=== PATIENT | male | born 1945 | race Asian ===

== ENCOUNTER → 2019-12-14 16:01 | Outpatient (CLI) | payer MEDICARE, BC, SELFPAY | PROVIDERS: PCP Student in an Organized Health Care Education/Training Program; Referring Provider Urology; Visit Provider Urology | DX: N40.1 Benign prostatic hyperplasia with lower urinary tract symptoms (principal) | CPT/HCPCS: 36415; 84153 ==

== ENCOUNTER → 2020-06-16 | Outpatient (CLI) | payer MEDICARE, BC, SELFPAY ==
[2020-06-16 16:18] LABS: Bacteria 0 SEEN /hpf (None Seen); Mucous, Urine 0 SEEN /hpf (<or=2+); Red Blood Cells-Urine 0 SEEN /hpf (0-5); White Blood Cells 0 SEEN /hpf (0-5)
[2020-06-16 16:44] LABS: Color, Urine Yellow (Yellow); Glucose, Dipstick Normal (Normal); Ketone-Dipstick Negative (Negative); Leukocyte Esterase-Dipstick Negative /ul (Negative); Nitrite-Dipstick Negative (Negative); Occult Blood-Urine 50 /ul (Negative); Protein-Dipstick 30 mg/dl (Negative); Specific Gravity, Urine 1.015 (1.002-1.030); Urine Bilirubin Dipstick Negative (Negative); Urine Clarity Clear (Clear); Urine Urobilinogen Normal (Normal)
[2020-06-16 17:00] LABS: Squamous Epithelial Cells - UA 0-5 SEEN /hpf (0-5)
== END | disposition home or self-care (01) ==
LOC: LABSPEC 16:11
PROVIDERS: PCP Student in an Organized Health Care Education/Training Program; Referring Provider Nurse Practitioner Adult Health; Visit Provider Nurse Practitioner Adult Health
DX: R31.21 Asymptomatic microscopic hematuria (principal)
CPT/HCPCS: 81001

== ENCOUNTER → 2020-12-22 11:05 | Outpatient (CLI) | payer MEDICARE, BC, SELFPAY ==
[2020-12-22 12:46] LABS: PSA,Total - Annual Screen 0.63 ng/mL (0.00-4.00)
[2020-12-22 16:21] LABS: Bacteria 0 SEEN /hpf (None Seen); Mucous, Urine 0 SEEN /hpf (<or=2+); Squamous Epithelial Cells - UA 0 SEEN /hpf (0-5); White Blood Cells 0 SEEN /hpf (0-5)
[2020-12-22 16:34] LABS: Color, Urine Yellow (Yellow); Glucose, Dipstick Normal (Normal); Ketone-Dipstick Negative (Negative); Leukocyte Esterase-Dipstick Negative /ul (Negative); Nitrite-Dipstick Negative (Negative); Occult Blood-Urine 50 /ul (Negative); Protein-Dipstick 30 mg/dl (Negative); Urine Bilirubin Dipstick Negative (Negative); Urine Clarity Clear (Clear); Urine Urobilinogen Normal (Normal)
[2020-12-22 17:09] LABS: Red Blood Cells-Urine 0-5 SEEN /hpf (0-5)
== END ==
PROVIDERS: PCP Student in an Organized Health Care Education/Training Program; Referring Provider Nurse Practitioner Adult Health; Visit Provider Nurse Practitioner Adult Health
DX: R31.21 Asymptomatic microscopic hematuria (principal); Z12.5 Encounter for screening for malignant neoplasm of prostate
CPT/HCPCS: 36415; 81001; 84153; G0103

== ENCOUNTER → 2021-06-22 | Outpatient (CLI) | payer MEDICARE, BC, SELFPAY ==
[2021-06-22 17:25] LABS: Bacteria 0 SEEN /hpf (None Seen); Mucous, Urine 0 SEEN /hpf (<or=2+); White Blood Cells 0 SEEN /hpf (0-5)
[2021-06-22 17:42] LABS: Color, Urine Yellow (Yellow); Glucose, Dipstick Normal (Normal); Ketone-Dipstick Negative (Negative); Leukocyte Esterase-Dipstick Negative /ul (Negative); Nitrite-Dipstick Negative (Negative); Occult Blood-Urine 150 /ul (Negative); Protein-Dipstick 30 mg/dl (Negative); Urine Bilirubin Dipstick Negative (Negative); Urine Clarity Clear (Clear); Urine Urobilinogen Normal (Normal)
[2021-06-22 18:33] LABS: Red Blood Cells-Urine 10-25 SEEN /hpf (0-5); Squamous Epithelial Cells - UA 0-5 SEEN /hpf (0-5)
== END | disposition home or self-care (01) ==
LOC: LABSPEC 17:10
PROVIDERS: PCP Student in an Organized Health Care Education/Training Program; Visit Provider Nurse Practitioner Adult Health
DX: R31.21 Asymptomatic microscopic hematuria (principal)
CPT/HCPCS: 81001

== ENCOUNTER → 2021-07-05 13:33 | Outpatient (CLI) | payer MEDICARE, BC, SELFPAY ==
--- NOTE | 2021-07-05 13:36 | CT_ITS ---
STUDY: CT ABDOMEN AND PELVIS WITH AND WITHOUT CONTRAST REASON FOR EXAM: Male, 75 years old. HEMATURIA RADIATION DOSAGE (If Supplied By Facility): CTDIvol = ( 19.93 ) mGy, DLP = ( 2457.74 ) mGycm TECHNIQUE: Transaxial images were obtained from the dome of the diaphragm to the symphysis pubis without oral contrast. IV 100mL Isovue-[id number] was administered. Sagittal and coronal images were reconstructed. Individualized dose optimization techniques were used for this CT. COMPARISON: None. FINDINGS: Lung bases clear. Mild diffuse hepatic steatosis. Unremarkable spleen, pancreas, and adrenals. No radiopaque stone in the bilateral kidneys and proximal ureters. 2 subcentimeter cysts in the left kidney measuring up to 0.9 cm. No definite mass in the bilateral kidneys and opacified parts of the ureters. No definite cholelithiasis. Normal appendix. Bowel loops nonobstructed. Distal colonic diverticulosis. No acute diverticulitis. No free air or free fluid. Vascular constipation with no abdominal aortic aneurysm. Sections through the pelvis demonstrate a markedly enlarged prostate gland protruding into the lumen of the urinary bladder. Tiny bladder diverticula noted. A small fat-containing left inguinal hernia. No lytic or sclerotic lesion in the regional skeleton. Multilevel thoracolumbar spondylosis. 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 CT/CT Abd/Pelvis W/WO Contrast IMPRESSION: Markedly enlarged prostate gland causing mass effect on the neck of the urinary bladder. Correlation with rectal examination and serum PSA levels is recommended. No radiopaque stone in the bilateral kidneys and proximal ureters. Mild diffuse hepatic steatosis. Electronically Signed: Terrence Montanez MD at 19:46 EDT Tel , Service support ,
[2021-07-05 14:16] LABS: CREATININE FINGERSTICK 1.1 mg/dL (0.70-1.30); EGFR FINGERSTICK > 60.0000 mL/min (>60)
== END ==
PROVIDERS: PCP Student in an Organized Health Care Education/Training Program; Visit Provider Nurse Practitioner Adult Health
DX: R31.21 Asymptomatic microscopic hematuria (principal)
CPT/HCPCS: 74178; Q9967

== ENCOUNTER 2021-12-18 15:59 | Outpatient (CLI) | payer MEDICARE, BC, SELFPAY ==
[2021-12-18 17:31] LABS: PSA,Total- Diagnostic 0.81 ng/mL (0.0-4.0)
== END 2021-12-18 23:59 | disposition home or self-care (01) ==
LOC: LAB 16:01
PROVIDERS: PCP Student in an Organized Health Care Education/Training Program; Visit Provider Urology
DX: R97.20 Elevated prostate specific antigen [PSA] (principal)
CPT/HCPCS: 36415; 84153

== ENCOUNTER → 2022-06-18 | Outpatient (CLI) | payer MEDICARE, BC, SELFPAY | END | disposition home or self-care (01) | LOC: LAB 07:00 | PROVIDERS: PCP Student in an Organized Health Care Education/Training Program; Referring Provider Registered Nurse; Visit Provider Registered Nurse | DX: Z12.5 Encounter for screening for malignant neoplasm of prostate (principal) | CPT/HCPCS: 36415; 84153; G0103 ==

== ENCOUNTER → 2023-06-17 | Outpatient (CLI) | payer MEDICARE, BC, SELFPAY ==
[2023-06-17 08:53] LABS: PSA,Total - Annual Screen 0.68 ng/mL (0.00-4.00)
== END | disposition home or self-care (01) ==
PROVIDERS: PCP Student in an Organized Health Care Education/Training Program; Referring Provider Registered Nurse; Visit Provider Registered Nurse
DX: Z12.5 Encounter for screening for malignant neoplasm of prostate (principal)
CPT/HCPCS: 36415; 84153; G0103

== ENCOUNTER → 2024-07-02 | Outpatient (CLI) | payer MEDICARE, BC, SELFPAY ==
[2024-07-02 18:23] LABS: PSA,Total - Annual Screen 0.66 ng/mL (0.00-4.00)
== END | disposition home or self-care (01) ==
LOC: LAB 16:22
PROVIDERS: PCP Student in an Organized Health Care Education/Training Program; Referring Provider Nurse Practitioner; Visit Provider Nurse Practitioner
DX: Z12.5 Encounter for screening for malignant neoplasm of prostate (principal)
CPT/HCPCS: 36415; 84153; G0103

== ENCOUNTER → 2025-07-05 | Outpatient (CLI) | payer MEDICARE, BC, SELFPAY ==
--- OUTSIDE RECORDS SUMMARY | 2025-07-05 06:48 | XMS RPT_ITS | CCD ---
Author Organization [facility] Care Team Providers Care Animal Breeder Name Role Phone SARIKA BELLA, DR KRISHNAMURTHY Primary Care Physician ([id number] ROMAR DO, DR KRISHNAMURTHY Attending Unavailable ROMAR DO, DR KRISHNAMURTHY Primary Care Unavailable ROMAR DO, DR KRISHNAMURTHY Primary Care Unavailable ROMAR DO, DR KRISHNAMURTHY Attending Unavailable ROMAR DO, DR KRISHNAMURTHY Primary Care Unavailable ROMAR DO, DR KRISHNAMURTHY Attending Unavailable ROMAR DO, DR KRISHNAMURTHY Primary Care Unavailable ROMAR DO, DR KRISHNAMURTHY Attending Unavailable ROMAR DO, DR KRISHNAMURTHY Primary Care Unavailable ROMAR DO, DR KRISHNAMURTHY Attending Unavailable ROMAR DO, DR KRISHNAMURTHY Primary Care Unavailable ROMAR DO, DR KRISHNAMURTHY Attending Unavailable ROMAR DO, DR KRISHNAMURTHY Primary Care Unavailable DHRUV BARNARD, DR PASTORA Godoy Attending Unavai lable ROMAR DO, DR KRISHNAMURTHY Primary Care Unavailable ROMAR DO, DR KRISHNAMURTHY Attending Unavailable ROMAR DO, DR KRISHNAMURTHY Attending Unavailable ROMAR DO, DR KRISHNAMURTHY Primary Care Unavailable ROMAREYSSY Primary Care Unavailable ROMARYESSY Attending Unavailable ROMAR, YESSY Attending Unavailable ROMAR, YESSY Primary Care Unavailable ROMAR, YESSY Attending Unavailable ROMAR, YESSY Primary Care Unavailable RomarYessy Primary Care Unavailable Bally, Amanda Referring Unavailable Bally, Amanda Attending Unavailable Bally, Amanda Attending Unavailable Yessy Santillan Primary Care Unavailable Bally, Amanda Referring Unavailable Medications Current Medications Medication Drug Class(es) Dates Sig (Normalized) Sig (Original) amLODIPine 5 mg oral tablet (17 sources) Dihydropyridine Calcium Channel Ritu Start: 08-21-2024 End: 03-09-2025 amLODIPine 5 mg oral tablet Dose : 5 mg = 1 tab(s), Oral, qDay, # 100 tab(s), 1 Refill(s) Start Date: 08/21/24 Stop Date: 03/09/25 Status: Ordered Quantity: 100.0 Unit: tab(s) Repeat number: 2 Start: 07-06-2022 End: 08-01-2024 amLODIPine 5 mg oral tablet Dose : 5 mg = 1 tab(s), Oral, qDay, # 100 tab(s), 1 Refill(s), Pharmacy: [facility], 172.3, cm, 01/14/24 16:22:00 EDT, Height, kg, 01/14/24 16:22:00 EDT, Dosing Weight Start Date: 01/14/24 Stop Date: 08/01/24 Status: Ordered Start: 05-15-2021 End: 02-09-2022 amLODIPine 5 mg oral tablet Dose : 5 mg = 1 tab(s), Oral, qDay, # 90 tab(s), 2 Refill(s), Pharmacy: [facility], 174, cm, 05/15/21 9:45:00 EDT, Height, kg, 05/15/21 9:45:00 EDT, Dosing Weight Start Date: 05/15/21 Stop Date: 02/09/22 Status: Ordered apixaban 5 mg oral tablet (17 sources) Factor Xa Inhibitor Start: 10-13-2024 Eliquis 5 mg oral tablet Dose : 5 mg = 1 tab(s), Oral, BID, # 180 tab(s), 0 Refill(s), Pharmacy: [facility], 173.5, cm, 09/10/24 15:44:00 EST, Height, 90.9, kg, 09/10/24 15:44:00 EST, Dosing Weight Start Date: 10/13/24 Status: Ordered Quantity: 180.0 Unit: tab(s) Repeat number: 1 Start: 10-15-2023 Eliquis 5 mg o ral tablet Dose : 5 mg = 1 tab(s), Oral, BID, # 180 tab(s), 3 Refill(s), Pharmacy: [facility], 174, cm, 09/24/23 15:33:00 EST, Height, 88.1, kg, 09/24/23 15:33:00 EST, Dosing Weight Start Date: 10/15/23 Status: Ordered Start: 10-17-2022 Eliquis 5 mg o ral tablet Dose : 5 mg = 1 tab(s), Oral, BID, # 60 tab(s), 11 Refill(s), Pharmacy: [facility], 172.7, cm, 10/11/22 11:16:00 EST, Height, 90.1, kg, 10/11/22 11:16:00 EST, Dosing Weight Start Date: 10/17/22 Status: Ordered Start: 04-11-2022 End: 10-08-2022 Eliquis 5 mg oral tablet Dos e : 5 mg = 1 tab(s), Oral, BID, # 60 tab(s), 5 Refill(s), Pharmacy: [facility], 172.7, cm, 01/05/22 14:58:00 EST, Height, 90.3, kg, 01/05/22 14:58:00 EST, Dosing Weight Start Date: 04/11/22 Stop Date: 10/08/22 Status: Ordered Start: 09-29-2021 Eliquis 5 mg o ral tablet Dose : 5 mg = 1 tab(s), Oral, BID, # 180 tab(s), 1 Refill(s), Pharmacy: [facility], 173, cm, 09/29/21 14:35:00 EST, Height, 90.2, kg, 09/29/21 14:35:00 EST, Dosing Weight Start Date: 09/29/21 Status: Ordered atorvastatin 40 mg oral tablet (17 sources) HMG-CoA Reductase Inhibitor Start: 08-21-2024 End: 03-09-2025 atorvastatin 40 mg oral tablet Dose : 40 mg = 1 tab(s), Oral, qDay, # 100 tab(s), 1 Refill(s) Start Date: 08/21/24 Stop Date: 03/09/25 Status: Ordered Quantity: 100.0 Unit: tab(s) Repeat number: 2 Start: 01-14-2024 End: 08-01-2024 atorvastatin 40 mg oral tabl et Dose : 40 mg = 1 tab(s), Oral, qDay, # 100 tab(s), 1 Refill(s), Pharmacy: [facility], 172.3, cm, 01/14/24 16:22:00 EDT, Height, kg, 01/14/24 16:22:00 EDT, Dosing Weight Start Date: 01/14/24 Stop Date: 08/01/24 Status: Ordered Start: 05-21-2023 atorvastatin 4 0 mg oral tablet Dose : 40 mg = 1 tab(s), Oral, qDay, # 90 tab(s), 1 Refill(s), Pharmacy: [facility], 172.5, cm, 05/21/23 16:17:00 EDT, Height, kg, 05/21/23 16:17:00 EDT, Dosing Weight Start Date: 05/21/23 Status: Ordered Start: 01-04-2023 atorvastatin 4 0 mg oral tablet Dose : 40 mg = 1 tab(s), Oral, qDay, # 90 tab(s), 1 Refill(s), Pharmacy: [facility], 172.7, cm, 01/04/23 14:39:00 EST, Height, kg, 01/04/23 14:39:00 EST, Dosing Weight Start Date: 01/04/23 Status: Ordered Start: 07-06-2022 atorvastatin 4 0 mg oral tablet Dose : 40 mg = 1 tab(s), Oral, qDay, # 90 tab(s), 1 Refill(s), Pharmacy: [facility], 172.7, cm, 07/06/22 14:54:00 EDT, Height, kg, 07/06/22 14:54:00 EDT, Dosing Weight Start Date: 07/06/22 Status: Ordered Start: 01-05-2022 atorvastatin 4 0 mg oral tablet Dose : 40 mg = 1 tab(s), Oral, qDay, # 90 tab(s), 1 Refill(s), Pharmacy: [facility], 172.7, cm, 01/05/22 14:58:00 EST, Height, kg, 01/05/22 14:58:00 EST, Dosing Weight Start Date: 01/05/22 Status: Ordered Start: 11-03-2021 atorvastatin 4 0 mg oral tablet Dose : 40 mg = 1 tab(s), Oral, qDay, # 90 tab(s), 0 Refill(s), Pharmacy: [facility], 172.7, cm, 10/03/21 11:04:00 EST, Height, kg, 10/03/21 11:04:00 EST, Dosing Weight Start Date: 11/03/21 Status: Ordered clindamycin 150 mg oral capsule (1 source) Lincosamide Antibacterial Start: 05-21-2023 End: 05-31-2023 clindamycin 150 mg oral capsule Dose : 450 mg = 3 cap(s), Oral, q8h, X 10 day(s), # 90 cap(s), 0 Refill(s), 05/31/23 5:06:00 PM EDT, Pharmacy: [facility], 172.5, cm, 05/21/23 16:17:00 EDT, Height, 88.8, kg, 05/21/23 16:17:00 EDT, Dosing Weight Start Date: 05/21/23 Stop Date: 05/31/23 Status: Ordered DME MISCellaneous (1 source) Start: 05-21-2023 DME MISCellane ous See Instructions, Bilateral knee high compression hose medium 20-30, Dx: R60.9, # 1 EA, 0 Refill(s), Peripheral edema, 88.8 Start Date: 05/21/23 Status: Ordered losartan potassium 50 mg oral tablet (17 sources) Angiotensin 2 Receptor Ritu Start: 08-21-2024 End: 03-09-2025 losartan 50 mg oral tablet Dose : 50 mg = 1 tab(s), Oral, qDay, # 100 tab(s), 1 Refill(s) Start Date: 08/21/24 Stop Date: 03/09/25 Status: Ordered Quantity: 100.0 Unit: tab(s) Repeat number: 2 Start: 08-15-2023 End: 08-01-2024 losartan 50 mg oral tablet D ose : 50 mg = 1 tab(s), Oral, qDay, # 100 tab(s), 1 Refill(s), Pharmacy: [facility], 172.3, cm, 01/14/24 16:22:00 EDT, Height, kg, 01/14/24 16:22:00 EDT, Dosing Weight Start Date: 01/14/24 Stop Date: 08/01/24 Status: Ordered Start: 05-21-2023 losartan 50 mg oral tablet Dose : 50 mg = 1 tab(s), Oral, qDay, # 90 tab(s), 1 Refill(s), Pharmacy: [facility], 172.5, cm, 05/21/23 16:17:00 EDT, Height, kg, 05/21/23 16:17:00 EDT, Dosing Weight Start Date: 05/21/23 Status: Ordered Start: 01-04-2023 losartan 50 mg oral tablet Dose : 50 mg = 1 tab(s), Oral, qDay, # 90 tab(s), 1 Refill(s), Pharmacy: [facility], 172.7, cm, 01/04/23 14:39:00 EST, Height, kg, 01/04/23 14:39:00 EST, Dosing Weight Start Date: 01/04/23 Status: Ordered Start: 08-10-2022 losartan 50 mg oral tablet Dose : 50 mg = 1 tab(s), Oral, qDay, # 90 tab(s), 1 Refill(s), Pharmacy: [facility], 172, cm, 07/30/22 13:51:00 EDT, Height, kg, 07/30/22 13:51:00 EDT, Dosing Weight Start Date: 08/10/22 Status: Ordered Start: 07-06-2022 losartan 50 mg oral tablet Dose : 50 mg = 1 tab(s), Oral, qDay, # 90 tab(s), 1 Refill(s), Pharmacy: [facility], 172.7, cm, 07/06/22 14:54:00 EDT, Height, kg, 07/06/22 14:54:00 EDT, Dosing Weight Start Date: 07/06/22 Status: Ordered Start: 01-05-2022 losartan 50 mg oral tablet Dose : 50 mg = 1 tab(s), Oral, qDay, # 90 tab(s), 1 Refill(s), Pharmacy: [facility], 172.7, cm, 01/05/22 14:58:00 EST, Height, kg, 01/05/22 14:58:00 EST, Dosing Weight Start Date: 01/05/22 Status: Ordered Start: 11-03-2021 losartan 50 mg oral tablet Dose : 50 mg = 1 tab(s), Oral, qDay, # 90 tab(s), 0 Refill(s), Pharmacy: [facility], 172.7, cm, 10/03/21 11:04:00 EST, Height, kg, 10/03/21 11:04:00 EST, Dosing Weight Start Date: 11/03/21 Status: Ordered metFORMIN hydrochloride 500 mg oral tablet (17 sources) Biguanide Start: 08-21-2024 End: 06-27-2025 MetFORMIN (Eqv-Glucophage XR) 500 mg oral tablet, EXTENDED RELEASE Dose : 500 mg = 1 tab(s), Oral, BID, with evening meal. Okay to subtitute glucophage 500 mg extended release if covered by insurance, # 200 tab(s), 1 Refill(s), Pharmacy: [facility], 173.5, cm, 12/09/24 15:59:00 EST, Height, kg, 12/09/24 15:59:00 EST, Dosing Weight Start Date: 12/09/24 Stop Date: 06/27/25 Status: Ordered Quantity: 200.0 Unit: tab(s) Repeat number: 2 Start: 01-04-2023 End: 08-01-2024 MetFORMIN (Eqv-Glucophage XR ) 500 mg oral tablet, EXTENDED RELEASE Dose : 500 mg = 1 tab(s), Oral, BID, with evening meal. Okay to subtitute glucophage 500 mg extended release if covered by insurance, # 200 tab(s), 1 Refill(s), Pharmacy: [facility], 172.3, cm, 01/14/24 16:22:00 EDT, Height, kg, 01/14/24 16:22:00 EDT, Dosing Weight Start Date: 01/14/24 Stop Date: 08/01/24 Status: Ordered Start: 07-06-2022 End: 01-02-2023 MetFORMIN (Eqv-Glucophage XR ) 500 mg oral tablet, EXTENDED RELEASE Dose : 500 mg = 1 tab(s), Oral, BID, with evening meal. Okay to subtitute glucophage 500 mg extended release if covered by insurance, # 180 tab(s), 1 Refill(s), Pharmacy: [facility], 172.7, cm, 07/06/22 14:54:00 EDT, Height, kg, ... Start Date: 07/06/22 Stop Date: 01/02/23 Status: Ordered Start: 09-29-2021 End: 03-28-2022 MetFORMIN (Eqv-Glucophage XR ) 500 mg oral tablet, EXTENDED RELEASE Dose : 500 mg = 1 tab(s), Oral, BID, with evening meal. Okay to subtitute glucophage 500 mg extended release if covered by insurance, # 180 tab(s), 1 Refill(s), Pharmacy: [facility], 173, cm, 09/29/21 14:35:00 EST, Height, kg, 09/29/21... Start Date: 09/29/21 Stop Date: 03/28/22 Status: Ordered metoprolol tartrate 25 mg oral tablet (17 sources) beta-Adrenergic Ritu Start: 08-21-2024 End: 03-09-2025 Metoprolol Succinate ER 25 mg oral TABLET extended release Dose : 25 mg = 1 tab(s), Oral, qDay, do not crush or chew, # 100 tab(s), 1 Refill(s) Start Date: 08/21/24 Stop Date: 03/09/25 Status: Ordered Quantity: 100.0 Unit: tab(s) Repeat number: 2 Start: 10-11-2022 End: 08-01-2024 Metoprolol Succinate ER 25 m g oral TABLET extended release Dose : 25 mg = 1 tab(s), Oral, qDay, do not crush or chew, # 100 tab(s), 1 Refill(s), Pharmacy: [facility], 172.3, cm, 01/14/24 16:22:00 EDT, Height, kg, 01/14/24 16:22:00 EDT, Dosing Weight Start Date: 01/14/24 Stop Date: 08/01/24 Status: Ordered Start: 10-03-2021 End: 09-28-2022 Metoprolol Succinate ER 25 m g oral TABLET extended release Dose : 12.5 mg = 0.5 tab(s), Oral, qDay, # 45 tab(s), 3 Refill(s), Pharmacy: [facility], 172.7, cm, 10/03/21 11:04:00 EST, Height, kg, 10/03/21 11:04:00 EST, Dosing Weight Start Date: 10/03/21 Stop Date: 09/28/22 Status: Ordered nitroglycerin 0.4 mg sublingual tablet (2 sources) Start: 11-24-2019 nitroglycerin 0.4 mg sublingual tablet DISSOLVE 1 TABLET UNDER THE TONGUE NEEDED FOR CHEST PAIN- MAY REPEAT EVERY 5 MINUTES IF NEEDED ( MAX 3 DOSES.- IF NO RELIEF CALL 911) Start Date: 11/24/19 Status: Ordered sulfamethoxazole 800 mg / trimethoprim 160 mg oral tablet (1 source) Dihydrofolate Reductase Inhibitor Antibacterial, Sulfonamide Antimicrobial Start: 05-07-2023 End: 05-21-2023 take 1 tablet by mouth every twelve hours sulfamethoxazole-t rimethoprim 800 mg-160 mg oral tablet Dose = 1 tab(s), Oral, q12h, drink plenty of fluids, X 14 day(s), # 28 tab(s), 0 Refill(s), Pharmacy: [facility], 172.7, cm, 05/07/23 16:20:00 EDT, Height, 89.8 Start Date: 05/07/23 Stop Date: 05/21/23 Status: Ordered Completed/Discontinued Medications Medication Drug Class(es) Dates Sig (Normalized) Sig (Original) ferrous sulfate 325 mg oral tablet (6 sources) Start: 04-14-2024 End: 07-13-2024 ferrous sulfate 325 mg (65 mg elemental iron) oral tablet Dose : 325 mg = 1 tab(s), Oral, qDay, may take with food to minimize abdominal discomfort, # 90 tab(s), 0 Refill(s), Pharmacy: [facility], 173.5, cm, 04/14/24 16:14:00 EDT, Height, kg, 04/14/24 16:14:00 EDT, Dosing Weight Start Date: 04/14/24 Stop Date: 9/16/24 Status: Ordered Start: 07-15-2023 End: 12-24-2023 ferrous sulfate 325 mg (65 m g elemental iron) oral tablet Dose : 325 mg = 1 tab(s), Oral, qDay, may take with food to minimize abdominal discomfort, # 90 tab(s), 0 Refill(s), Pharmacy: [facility], 174, cm, 09/24/23 15:33:00 EST, Height, kg, 09/24/23 15:33:00 EST, Dosing Weight Start Date: 09/25/23 Stop Date: 12/24/23 Status: Ordered finasteride 5 mg oral tablet (17 sources) 5-alpha Reductase Inhibitor Start: 07-06-2022 End: 01-02-2023 finasteride 5 mg oral tablet Dose : 5 mg = 1 tab(s), Oral, qDay, # 90 tab(s), 1 Refill(s), Pharmacy: [facility], 172.7, cm, 07/06/22 14:54:00 EDT, Height, kg, 07/06/22 14:54:00 EDT, Dosing Weight Start Date: 07/06/22 Stop Date: 01/02/23 Status: Ordered Quantity: 90.0 Unit: tab(s) Repeat number: 2 Start: 09-13-2021 End: 03-12-2022 finasteride 5 mg oral tablet Dose : 5 mg = 1 tab(s), Oral, qDay, # 90 tab(s), 1 Refill(s), Pharmacy: [facility], 173, cm, 06/29/21 14:46:00 EDT, Height, kg, 06/29/21 14:46:00 EDT, Dosing Weight Start Date: 09/13/21 Stop Date: 03/12/22 Status: Ordered nitroglycerin 0.4 mg sublingual tablet (15 sources) Nitrate Vasodilator Start: 06-18-2023 End: 10-16-2023 nitroglycerin 0.4 mg sublingual tablet 0.4 mg Dose = 1 tab(s), Sublingual, q5min, PRN as needed for chest pain, DISSOLVE 1 TABLET UNDER THE TONGUE NEEDED FOR CHEST PAIN- MAY REPEAT EVERY 5 MINUTES IF NEEDED ( MAX 3 DOSES.- IF USED CALL 911), # 30 tab(s), 3 Refill(s), Pharmacy: [facility], 172.5, cm, 06/18/23 16:54:00 EDT, Height, kg, 06/18/23 16:54:00 EDT, Dosing Weight Start Date: 06/18/23 Stop Date: 10/16/23 Status: Ordered Quantity: 30.0 Unit: tab(s) Repeat number: 4 Start: 01-10-2022 nitroglycerin 0.4 mg sublingual tablet 0.4 mg Dose = 1 tab(s), Sublingual, q5min, DISSOLVE 1 TABLET UNDER THE TONGUE NEEDED FOR CHEST PAIN- MAY REPEAT EVERY 5 MINUTES IF NEEDED ( MAX 3 DOSES.- IF NO RELIEF CALL 911), # 25 tab(s), 3 Refill(s), Pharmacy: [facility], 172.7, cm, 01/05/22 14:58:00 EST, Height, kg, 01/05/22 14:58:00 EST, Dosing Weight Start Date: 01/10/22 Status: Ordered tamsulosin hydrochloride 0.4 mg oral capsule (17 sources) alpha-Adrenergic Ritu Start: 07-06-2022 End: 01-02-2023 tamsulosin 0.4 mg oral capsule Dose : 0.4 mg = 1 cap(s), Oral, BID, per Urology, # 180 cap(s), 1 Refill(s), Pharmacy: [facility], 172.7, cm, 07/06/22 14:54:00 EDT, Height, kg, 07/06/22 14:54:00 EDT, Dosing Weight Start Date: 07/06/22 Stop Date: 01/02/23 Status: Ordered Quantity: 180.0 Unit: cap(s) Repeat number: 2 Start: 02-28-2021 End: 08-27-2021 tamsulosin 0.4 mg oral capsu le Dose : 0.4 mg = 1 cap(s), Oral, qDay, # 90 cap(s), 1 Refill(s), Pharmacy: [facility], 170, cm, 01/06/21 13:49:00 EST, Height, kg, 01/06/21 13:49:00 EST, Dosing Weight Start Date: 02/28/21 Stop Date: 08/27/21 Status: Ordered Problems Active Problems Problem Classification Problem Date Documented Date Episodic/Chronic Abdominal hernia (17 sources) Left inguinal hernia 09-13-2021 Episodic Comment on above: Fat-containing small on CT abdomen pelvis 07/18 [place] Cardiac dysrhythmias (17 sources) Ventricular premature beats 05-27-2020 Chronic Cardiac dysrhythmias (17 sources) Palpitations 12-09-2019 Episodic Comment on above: 09/08/2018: 24-hour Holter: Sinus rhythm (HR 65-135 bpm with average 88) 10% PVC burden mostly in isolation. Rare PACs noted. 10/23/2018: TTE: LVEF 60-65%. Moderately calcified aortic valve with mild stenosis and mild regurgitation. Deficiency and other anemia (8 sources) Anemia 05-28-2023 Episodic Deficiency and other anemia (8 sources) Iron deficiency anemia 07-15-2023 Episodic Deficiency and other anemia (8 sources) Microcytic anemia 06-18-2023 Episodic Diabetes mellitus with complications (1 source) Renal disorder due to type 2 diabetes mellitus; Translations: [Type 2 diabetes mellitus with other diabetic kidney complication] Onset: 01-07-2023 Chronic Diabetes mellitus without complication (20 sources) Type 2 diabetes mellitus; Translations: [Diabetes mellitus] Onset: 12-09-2024 09-29-2021 Chronic Diabetes mellitus without complication (11 sources) Hyperglycemia 11-24-2019 Episodic Disorders of lipid metabolism (20 sources) Dyslipidemia; Translations: [Hyperlipidemia] 05-16-2020 Chronic Comment on above: 06/23/2018: Total cho lesterol 154, triglycerides 156, HDL 50 and LDL 73; AST 21 and ALT 35 01/16 ascvd risk 44% on statin Diverticulosis and diverticulitis (20 sources) Diverticular disease; Translations: [Diverticulosis of colon] 09-29-2021 Chronic Comment on above: on CT abdomen pelvis 07/18 [place] Esophageal disorders (17 sources) Gastroesophageal reflux disease 05-16-2020 Chronic Essential hypertension (19 sources) Benign hypertension; Translations: [Hypertensive disorder] Onset: 12-09-2024 11-16-2020 Chronic Fluid and electrolyte disorders (6 sources) Hyperkalemia 01-17-2024 Episodic Genitourinary symptoms and ill-defined conditions (20 sources) Microalbuminuria; Translations: [Proteinuria] 01-09-2021 Episodic Heart valve disorders (17 sources) Aortic valve stenosis 05-27-2020 Chronic Comment on above: 10/23/2018: TTE: LVE F 60-65%. Moderately calcified aortic valve with mild stenosis and mild regurgitation. Hyperplasia of prostate (17 sources) Benign prostatic hypertrophy with outflow obstruction 05-16-2020 Chronic Neoplasms of unspecified nature or uncertain behavior (8 sources) Thrombocytosis 07-15-2023 Chronic Nonspecific chest pain (17 sources) Chest pain 05-27-2020 Episodic Comment on above: EKG done on 09/08/20 18 at PCP's office was independently reviewed and showed sinus tachycardia with heart rate 103 beats a minute. Ventricular couplet noted. Possible left atrial enlargement. LVH with repolarization abnormalities. Other and unspecified benign neoplasm (17 sources) Melanocytic nevus 07-11-2021 Episodic Other circulatory disease (2 sources) Elevated blood pressure 02-26-2020 Episodic Other circulatory disease (15 sources) Easy bruising 03-30-2022 Episodic Other connective tissue disease (10 sources) Swelling of right lower limb 05-07-2023 Episodic Other injuries and conditions due to external causes (8 sources) Foreign body of foot 05-28-2023 Episodic Other liver diseases (20 sources) Steatosis of liver 09-13-2021 Chronic Comment on above: Mild on CT abdomen p cornelio 07/18 [place] Other liver diseases (4 sources) Elevated liver enzymes level 04-14-2024 Episodic Other screening for suspected conditions (not mental disorders or infectious disease) (19 sources) EKG: atrial flutter; Translations: [Encounter for screening for malignant neoplasm of prostate] Onset: 07-22-2024 05-16-2020 Episodic Comment on above: s/p DCCV 150 J x 1 o n 12/31/2019 Other upper respiratory disease (17 sources) Chronic rhinitis 06-18-2019 Chronic Residual codes; unclassified (9 sources) Peripheral edema 05-21-2023 Episodic Skin and subcutaneous tissue infections (3 sources) Cellulitis of lower limb 05-21-2023 Episodic Unclassified (17 sources) Asymptomatic microscopic hematuria 11-22-2020 Comment on above: Follows with urology Unclassified (9 sources) Hematoma of right lower leg 05-21-2023 Unclassified (3 sources) For resuscitation 09-10-2024 Past or Other Problems Problem Classification Problem Date Documented Da te Episodic/Chronic Deficiency and other anemia (2 sources) Iron deficiency anemia, unspecified; Translations: [Iron deficiency anemia, unspecified] Onset: 08-22-2023 Episodic Immunizations and screening for infectious disease (20 sources) Has influenza vaccination at hospital; Translations: [Pneumococcal vaccination given] Onset: 10-28-2018 12-04-2019 Episodic Comment on above: Current / 2019 Results Test Name Value Interpretation Reference Range Facility [facility] 01-10-2025 U Ratio Alb/Cre 195 mg/G High 0-30 [facility] Comment on above: Performed By: #### P BNP, LIPID, A1C, CBC, ADIFF, ANEU, BMP, FE, GFR #### [id number] [place] [address] 12-10-2024 U Creatinine 56.3 mg/dL Normal [facility] Comment on above: Performed By: #### P BNP, LIPID, A1C, CBC, ADIFF, ANEU, BMP, FE, GFR #### [address] [address] U Microalb 110.0 mg/L Normal [facility] Comment on above: Performed By: #### P BNP, LIPID, A1C, CBC, ADIFF, ANEU, BMP, FE, GFR #### [address] [address] LABORATORYOrdered By: Alexandra Ivy on 12-09-2024 Albumin DL <= 20 mg/L (U) [Mass/Vol] 110.0 mg/L Invalid Interpretation Code AO ADM SS Albumin/Creatinine DL <= 20 mg/L (U) [Mass ratio] 2 mcg/mg Normal 0 - 30 mcg/mg AO Chemistry S Creatinine (U) [Mass/Vol] 56.3 mg/dL Invalid Interpretation Code AO ADM SS .Auto Diffon 09-12-2024 Basophil, Absolute 0.1 10 3/mcL Normal 0.0-0.2 [facility] Comment on above: Performed By: #### P BNP, LIPID, A1C, CBC, ADIFF, ANEU, BMP, FE, GFR #### [address] [address] Basophils/100 WBC (Bld) 1.0 % Normal 0.0-2.5 [facility] Comment on above: Performed By: #### P BNP, LIPID, A1C, CBC, ADIFF, ANEU, BMP, FE, GFR #### [address] [address] Eosinophil, Absolute 0.5 10 3/mcL Normal 0.0-0.7 [facility] Comment on above: Performed By: #### P BNP, LIPID, A1C, CBC, ADIFF, ANEU, BMP, FE, GFR #### [address] [address] Eosinophils/100 WBC (Bld) 7.1 % High 0.0-7.0 [facility] Comment on above: Performed By: #### P BNP, LIPID, A1C, CBC, ADIFF, ANEU, BMP, FE, GFR #### [address] [address] Lymphocyte, Absolute 2.5 10 3/mcL Normal 0.9-4.3 [facility] Comment on above: Performed By: #### P BNP, LIPID, A1C, CBC, ADIFF, ANEU, BMP, FE, GFR #### [address] [address] Lymphocytes/100 WBC (Bld) 36.6 % Normal 20.0-40.0 [facility] Comment on above: Performed By: #### P BNP, LIPID, A1C, CBC, ADIFF, ANEU, BMP, FE, GFR #### [address] [address] Monocyte, Absolute 0.8 10 3/mcL Normal 0.1-1.4 [facility] Comment on above: Performed By: #### P BNP, LIPID, A1C, CBC, ADIFF, ANEU, BMP, FE, GFR #### [address] [address] Monocytes/100 WBC (Bld) 11.3 % Normal 2.0-13.0 [facility] Comment on above: Performed By: #### P BNP, LIPID, A1C, CBC, ADIFF, ANEU, BMP, FE, GFR #### [id number] [place], [place] [address] Neutrophils/100 WBC (Bld) 44.0 % Low 50.0-75.0 [facility] Comment on above: Performed By: #### P BNP, LIPID, A1C, CBC, ADIFF, ANEU, BMP, FE, GFR #### [id number] [place], [place] [address] .GFRon 09-12-2024 GFR 106 ml/min/1.73sqm [facility] Comment on above: Result Comment: GFR Population mean for , Non- Americans Ages 20-29 = 116 mL/min/1.73 sq.m. Ages 30-39 = 107 mL/min/1.73 sq.m. Ages 40-49 = 99 mL/min/1.73 sq.m. Ages 50-59 = 93 mL/min/1.73 sq.m. Ages 60-69 = 85 mL/min/1.73 sq.m. Ages 70+ = 75 mL/min/1.73 sq.m. Chronic Kidney Disease: Less than 60 mL/min/1.73 square meters End Stage Renal Disease: Less than 15 mL/min/1.73 square meters Performed By: #### P BNP, LIPID, A1C, CBC, ADIFF, ANEU, BMP, FE, GFR #### [address] [address] GFR Non- 88 ml/min/1.73sqm [facility] Comment on above: Result Comment: GFR Population mean for , Non- Americans Ages 20-29 = 116 mL/min/1.73 sq.m. Ages 30-39 = 107 mL/min/1.73 sq.m. Ages 40-49 = 99 mL/min/1.73 sq.m. Ages 50-59 = 93 mL/min/1.73 sq.m. Ages 60-69 = 85 mL/min/1.73 sq.m. Ages 70+ = 75 mL/min/1.73 sq.m. Chronic Kidney Disease: Less than 60 mL/min/1.73 square meters End Stage Renal Disease: Less than 15 mL/min/1.73 square meters Performed By: #### P BNP, LIPID, A1C, CBC, ADIFF, ANEU, BMP, FE, GFR #### [address] [address] .NEUABSon 09-12-2024 Neutrophil, Absolute 3.0 10 3/mcL Normal 2.3-8.1 [facility] Comment on above: Performed By: #### P BNP, LIPID, A1C, CBC, ADIFF, ANEU, BMP, FE, GFR #### [address] [address] A1Con 09-12-2024 Glucose [Mass/Vol] 169 mg/dL Normal [facility] Comment on above: Result Comment: Trini mated Average Glucose calculated by equation ((28.7xA1C)-46.7) Estimated average glucose (eAG) is a calculated value from Hemoglobin A1C and is credit resolution representative of the average blood glucose level in the last 2-3 month period. Normal range: less than 114 mg/dL Performed By: #### P BNP, LIPID, A1C, CBC, ADIFF, ANEU, BMP, FE, GFR #### [address] [address] HbA1c (Bld) [Mass fraction] 7.5 % High 4.3-6.4 [facility] Comment on above: Performed By: #### P BNP, LIPID, A1C, CBC, ADIFF, ANEU, BMP, FE, GFR #### [address] [address] BMPon 09-12-2024 BUN/Creatinine Ratio 16 ratio Normal 7-27 [facility] Comment on above: Performed By: #### P BNP, LIPID, A1C, CBC, ADIFF, ANEU, BMP, FE, GFR #### [address] [address] Calcium [Mass/Vol] 9.5 mg/dL Normal 8.4-10.2 [facility] Comment on above: Performed By: #### P BNP, LIPID, A1C, CBC, ADIFF, ANEU, BMP, FE, GFR #### [address] [address] Chloride [Moles/Vol] 104 mmol/L Normal 98-107 [facility] Comment on above: Performed By: #### P BNP, LIPID, A1C, CBC, ADIFF, ANEU, BMP, FE, GFR #### [address] [address] CO2 [Moles/Vol] 33 mmol/L High 23-31 [facility] Comment on above: Performed By: #### P BNP, LIPID, A1C, CBC, ADIFF, ANEU, BMP, FE, GFR #### [address] [address] Creatinine [Mass/Vol] 0.85 mg/dL Normal 0.70-1.[address] [facility] Comment on above: Result Comment: Test ing performed on Siemens Dimension EXL analyzer using a modified kinetic Wu technique. Performed By: #### P BNP, LIPID, A1C, CBC, ADIFF, ANEU, BMP, FE, GFR #### [address] [address] Electrolyte Balance 5.0 mEq/L Normal 4.0-15.0 [facility] Comment on above: Performed By: #### P BNP, LIPID, A1C, CBC, ADIFF, ANEU, BMP, FE, GFR #### [address] [address] Glucose [Mass/Vol] 139 mg/dL High 83-110 [facility] Comment on above: Performed By: #### P BNP, LIPID, A1C, CBC, ADIFF, ANEU, BMP, FE, GFR #### [address] [address] Potassium [Moles/Vol] 4.6 mmol/L Normal 3.5-5.[address] [facility] Comment on above: Performed By: #### P BNP, LIPID, A1C, CBC, ADIFF, ANEU, BMP, FE, GFR #### [address] [address] Sodium [Moles/Vol] 142 mmol/L Normal 136-145 [facility] Comment on above: Performed By: #### P BNP, LIPID, A1C, CBC, ADIFF, ANEU, BMP, FE, GFR #### [place] [address] Urea nitrogen [Mass/Vol] 14 mg/dL Normal 7-18 [facility] Comment on above: Performed By: #### P BNP, LIPID, A1C, CBC, ADIFF, ANEU, BMP, FE, GFR #### [place] [id number] CBCon 09-12-2024 Erythrocyte distribution width (RBC) [Ratio] 14.0 % Normal 11.5-15.5 [facility] Comment on above: Performed By: #### P BNP, LIPID, A1C, CBC, ADIFF, ANEU, BMP, FE, GFR #### [place] [address] Hematocrit (Bld) [Volume fraction] 39.9 % Low 40.0-52.0 [facility] Comment on above: Performed By: #### P BNP, LIPID, A1C, CBC, ADIFF, ANEU, BMP, FE, GFR #### [place] [address] Hgb 13.2 G/dL Normal 13.0-17.5 [facility] Comment on above: Performed By: #### P BNP, LIPID, A1C, CBC, ADIFF, ANEU, BMP, FE, GFR #### [place] [address] MCH (RBC) [Entitic mass] 25.5 pg Low 27.0-33.0 [facility] Comment on above: Performed By: #### P BNP, LIPID, A1C, CBC, ADIFF, ANEU, BMP, FE, GFR #### [place] [address] MCHC 33.0 G/dL Normal 32.0-36.0 [facility] Comment on above: Performed By: #### P BNP, LIPID, A1C, CBC, ADIFF, ANEU, BMP, FE, GFR #### [address] [address] MCV (RBC) [Entitic vol] 77.2 fL Low 81.0-100.0 [facility] Comment on above: Performed By: #### P BNP, LIPID, A1C, CBC, ADIFF, ANEU, BMP, FE, GFR #### [address] [address] Platelet 211 10 3/mcL Normal 150-450 [facility] Comment on above: Performed By: #### P BNP, LIPID, A1C, CBC, ADIFF, ANEU, BMP, FE, GFR #### [address] [address] Platelet mean volume (Bld) [Entitic vol] 8.0 fL Normal 6.4-10.5 [facility] Comment on above: Performed By: #### P BNP, LIPID, A1C, CBC, ADIFF, ANEU, BMP, FE, GFR #### [address] [address] RBC 5.17 10 6/mcL Normal 4.50-6.00 [facility] Comment on above: Performed By: #### P BNP, LIPID, A1C, CBC, ADIFF, ANEU, BMP, FE, GFR #### [address] [address] WBC 6.7 10 3/mcL Normal 4.5-10.8 [facility] Comment on above: Performed By: #### P BNP, LIPID, A1C, CBC, ADIFF, ANEU, BMP, FE, GFR #### [address] [address] FEon 09-12-2024 Iron [Mass/Vol] 92 ug/dL Normal 65-175 [facility] Comment on above: Performed By: #### P BNP, LIPID, A1C, CBC, ADIFF, ANEU, BMP, FE, GFR #### [address] [address] LABORATORYOrdered By: SYSTEM SYSTEM on 09-12-2024 Basophils (Bld) [#/Vol] 0.1 103/mcL Normal 0.0 - 0.2 10^3/mcL AO Workflow SS Basophils/100 WBC (Bld) 1.0 % Normal 0.0 - 2.5 % AO Workflow SS Calcium [Mass/Vol] 9.5 mg/dL Normal 8.4 - 10. 2 mg/dL AO ADM SS Chloride [Moles/Vol] 104 mmol/L Normal 98 - 10 7 mmol/L AO ADM SS CO2 [Moles/Vol] 33 mmol/L High 23 - 31 mmol/L AO ADM SS Creatinine [Mass/Vol] 0.85 mg/dL Normal 0.70 - 1.30 mg/dL AO ADM SS Comment on above: Interpretive Data: T esting performed on Siemens Dimension EXL analyzer using a modified kinetic Wu technique. Electrolyte Balance 5.0 mEq/L Normal 4.0 - 15 .0 mEq/L AO ADM SS Eosinophil, Absolute 0.5 103/mcL Normal 0.0 - 0 .7 10^3/mcL AO Workflow SS Eosinophils/100 WBC (Bld) 7.1 % High 0.0 - 7.0 % AO Workflow SS Erythrocyte distribution width (RBC) [Ratio] 14.0 % Normal 11.5 - 15.5 % AO Workflow SS GFR/1.73 sq M.predicted among blacks MDRD (S/P/Bld) [Vol rate/Area] 106 ml/min/1.73sqm Invalid Interpretation Code AO Chemistry S Comment on above: Interpretive Data: GFR Population mean for , Non- Americans Ages 20-29 = 116 mL/min/1.73 sq.m. Ages 30-39 = 107 mL/min/1.73 sq.m. Ages 40-49 = 99 mL/min/1.73 sq.m. Ages 50-59 = 93 mL/min/1.73 sq.m. Ages 60-69 = 85 mL/min/1.73 sq.m. Ages 70+ = 75 mL/min/1.73 sq.m. Chronic Kidney Disease: Less than 60 mL/min/1.73 square meters End Stage Renal Disease: Less than 15 mL/min/1.73 square meters GFR/1.73 sq M.predicted among non-blacks MDRD (S/P/Bld) [Vol rate/Area] 88 ml/min/1.73sqm Invalid Interpretation Code AO Chemistry S Comment on above: Interpretive Data: GFR Population mean for , Non- Americans Ages 20-29 = 116 mL/min/1.73 sq.m. Ages 30-39 = 107 mL/min/1.73 sq.m. Ages 40-49 = 99 mL/min/1.73 sq.m. Ages 50-59 = 93 mL/min/1.73 sq.m. Ages 60-69 = 85 mL/min/1.73 sq.m. Ages 70+ = 75 mL/min/1.73 sq.m. Chronic Kidney Disease: Less than 60 mL/min/1.73 square meters End Stage Renal Disease: Less than 15 mL/min/1.73 square meters Glucose [Mass/Vol] 139 mg/dL High 83 - 110 mg/dL AO ADM SS Glucose [Mass/Vol] 169 mg/dL Invalid Interpretation Code AO Chemistry S Comment on above: Interpretive Data: E stimated average glucose (eAG) is a calculated value from Hemoglobin A1C and is credit resolution representative of the average blood glucose level in the last 2-3 month period. Normal range: less than 114 mg/dL HbA1c (Bld) [Mass fraction] 7.5 % High 4.3 - 6.4 % AO ADM SS Hematocrit (Bld) [Volume fraction] 39.9 % Low 40.0 - 52.0 % AO Workflow SS Hemoglobin (Bld) [Mass/Vol] 13.2 G/dL Normal 13.0 - 17.5 G/dL AO Workflow SS Iron [Mass/Vol] 92 ug/dL Normal 65 - 175 mcg/dL AO ADM SS Lymphocytes (Bld) [#/Vol] 2.5 103/mcL Normal 0.9 - 4.3 10^3/mcL AO Workflow SS Lymphocytes/100 WBC (Bld) 36.6 % Normal 20.0 - 40.0 % AO Workflow SS MCH (RBC) [Entitic mass] 25.5 pg Low 27.0 - 33.0 pg AO Workflow SS MCHC 33.0 G/dL Normal 32.0 - 36.0 G/dL AO Workflow SS MCV (RBC) [Entitic vol] 77.2 fL Low 81.0 - 100.0 fL AO Workflow SS Monocytes (Bld) [#/Vol] 0.8 103/mcL Normal 0.1 - 1.4 10^3/mcL AO Workflow SS Monocytes/100 WBC (Bld) 11.3 % Normal 2.0 - 13.0 % AO Workflow SS Natriuretic peptide.B prohormone N-Terminal [Mass/Vol] 131 pg/mL Normal 0 - 450 pg/mL AO ADM SS Comment on above: Interpretive Data: N T-proBNP results of less than 300 pg/mL effectively rules out acute congestive heart failure with 99% negative predictive value. Neutrophils (Bld) [#/Vol] 3.0 103/mcL Normal 2.3 - 8.1 10^3/mcL AO Workflow SS Neutrophils/100 WBC (Bld) 44.0 % Low 50.0 - 75.0 % AO Workflow SS Platelet mean volume (Bld) [Entitic vol] 8.0 fL Normal 6.4 - 10.5 fL AO Workflow SS Platelets (Bld) [#/Vol] 211 103/mcL Normal 150 - 450 10^3/mcL AO Workflow SS Potassium [Moles/Vol] 4.6 mmol/L Normal 3.5 - 5.1 mmol/L AO ADM SS RBC (Bld) [#/Vol] 5.17 106/mcL Normal 4.50 - 6.0 0 10^6/mcL AO Workflow SS Sodium [Moles/Vol] 142 mmol/L Normal 136 - 145 mmol/L AO ADM SS Urea nitrogen [Mass/Vol] 14 mg/dL Normal 7 - 18 mg/dL AO ADM SS Urea nitrogen/Creatinine [Mass ratio] 16 ratio Normal 7 - 27 ratio AO ADM SS WBC (Bld) [#/Vol] 6.7 103/mcL Normal 4.5 - 10.8 10^3/mcL AO Workflow SS LABORATORYOrdered By: Nereyda Quinonez on 09-12-2024 Cholesterol [Mass/Vol] 132 mg/dL Normal 0 - 200 mg/dL AO ADM SS Comment on above: Interpretive Data: C holesterol Reference Interval: Less than 200 Desirable 200-239 Borderline high risk 240 and above High risk Cholesterol in HDL [Mass/Vol] 50 mg/dL Normal 40 - 60 mg/dL AO ADM SS Cholesterol in LDL [Mass/Vol] 58 mg/dL Normal 0 - 130 mg/dL AO ADM SS Triglyceride [Mass/Vol] 118 mg/dL Normal 0 - 150 mg/dL AO ADM SS Comment on above: Interpretive Data: T riglyceride Reference Interval: Less than 150 Normal 150-199 Borderline high risk 200-499 High risk 500 or higher Very high risk LIPIDon 09-12-2024 Cholesterol [Mass/Vol] 132 mg/dL Normal 0-200 [facility] Comment on above: Result Comment: Chol esterol Reference Interval: Less than 200 Desirable 200-239 Borderline high risk 240 and above High risk Performed By: #### P BNP, LIPID, A1C, CBC, ADIFF, ANEU, BMP, FE, GFR #### [address] [address] Cholesterol in HDL [Mass/Vol] 50 mg/dL Normal 40-60 [facility] Comment on above: Performed By: #### P BNP, LIPID, A1C, CBC, ADIFF, ANEU, BMP, FE, GFR #### [address] [address] Cholesterol in LDL [Mass/Vol] 58 mg/dL Normal 0-130 [facility] Comment on above: Performed By: #### P BNP, LIPID, A1C, CBC, ADIFF, ANEU, BMP, FE, GFR #### [address] [address] Triglyceride [Mass/Vol] 118 mg/dL Normal 0-150 [facility] Comment on above: Result Comment: Trig lyceride Reference Interval: Less than 150 Normal 150-199 Borderline high risk 200-499 High risk 500 or higher Very high risk Performed By: #### P BNP, LIPID, A1C, CBC, ADIFF, ANEU, BMP, FE, GFR #### [address] [address] PBNPon 09-12-2024 Natriuretic peptide B (Bld) [Mass/Vol] 131 pg/mL Normal 0-450 [facility] Comment on above: Result Comment: NT-p roBNP results of less than 300 pg/mL effectively rules out acute congestive heart failure with 99% negative predictive value. Performed By: #### P BNP, LIPID, A1C, CBC, ADIFF, ANEU, BMP, FE, GFR #### [address] [address] MALBRon 09-11-2024 U Creatinine 105.2 mg/dL Normal 39.0-259.0 [facility] Comment on above: Performed By: #### M ALBR #### [facility] [address], [place] [address] U Microalb [address] mcg/dL Normal [facility] Comment on above: Performed By: #### M ALBR #### [facility] [address], [place] [address] U Ratio Alb/Cre 410 mcg/mg High 0-30 [facility] Comment on above: Performed By: #### M ALBR #### [facility] [address], [place] [address] LABORATORYOrdered By: Sherie Bang on 09-10-2024 Albumin DL <= 20 mg/L (U) [Mass/Vol] [address] mcg/dL Invalid Interpretation Code AO ADM SS Albumin/Creatinine DL <= 20 mg/L (U) [Mass ratio] 410 mcg/mg High 0 - 30 mcg/mg AO ADM SS Creatinine (U) [Mass/Vol] 105.2 mg/dL Normal 39.0 - 259.0 mg/dL AO ADM SS PSA,Total - Annual Screenon 07-02-2024 PSA,TOT SCREEN 0.66 ng/mL Normal 0.00-4.00 [facility] Comment on above: Result Comment: This test was performed using the TPSA assay method for the [employer] chemistry system. Values obtained with different assay methods cannot be used interchangably. When changing PSA assays in the course of monitoring a patient, additional sequential testing should be carried out to confirm baseline values. Performed By: #### L [phone] #### [facility] [address] [place], [place], [address] .GFRon 04-15-2024 GFR 119 ml/min/1.73sqm Normal [facility] ([place]) Comment on above: Result Comment: GFR Population mean for , Non- Americans Ages 20-29 = 116 mL/min/1.73 sq.m. Ages 30-39 = 107 mL/min/1.73 sq.m. Ages 40-49 = 99 mL/min/1.73 sq.m. Ages 50-59 = 93 mL/min/1.73 sq.m. Ages 60-69 = 85 mL/min/1.73 sq.m. Ages 70+ = 75 mL/min/1.73 sq.m. Chronic Kidney Disease: Less than 60 mL/min/1.73 square meters End Stage Renal Disease: Less than 15 mL/min/1.73 square meters Performed By: #### A DIFF, GFR, CBC, CMP, FE, ANEU #### [address] [address] GFR Non- 98 ml/min/1.73sqm Normal [facility] ([place]) Comment on above: Result Comment: GFR Population mean for , Non- Americans Ages 20-29 = 116 mL/min/1.73 sq.m. Ages 30-39 = 107 mL/min/1.73 sq.m. Ages 40-49 = 99 mL/min/1.73 sq.m. Ages 50-59 = 93 mL/min/1.73 sq.m. Ages 60-69 = 85 mL/min/1.73 sq.m. Ages 70+ = 75 mL/min/1.73 sq.m. Chronic Kidney Disease: Less than 60 mL/min/1.73 square meters End Stage Renal Disease: Less than 15 mL/min/1.73 square meters Performed By: #### A DIFF, GFR, CBC, CMP, FE, ANEU #### [address] [address] CMPon 04-15-2024 Albumin Level 3.5 G/dL Normal 3.4-4.8 [facility] ([place]) Comment on above: Performed By: #### A DIFF, GFR, CBC, CMP, FE, ANEU #### [address] [address] Albumin/Globulin [Mass ratio] 0.8 {ratio} Low 1.1-2.5 [facility] ([place]) Comment on above: Performed By: #### A DIFF, GFR, CBC, CMP, FE, ANEU #### [address] [address] ALP [Catalytic activity/Vol] 116 U/L Normal 40-135 [facility] ([place]) Comment on above: Performed By: #### A DIFF, GFR, CBC, CMP, FE, ANEU #### [address] [address] ALT [Catalytic activity/Vol] 53 U/L Normal 16-63 [facility] ([place]) Comment on above: Performed By: #### A DIFF, GFR, CBC, CMP, FE, ANEU #### [address] [address] AST [Catalytic activity/Vol] 25 U/L Normal 10-40 [facility] ([place]) Comment on above: Performed By: #### A DIFF, GFR, CBC, CMP, FE, ANEU #### [address] [address] Bili Total 0.4 mg/dL Normal 0.2-1.0 [facility] ([place]) Comment on above: Result Comment: Use of this assay is not recommended for patients undergoing treatment with eltrombopag due to the potential for falsely elevated results. Performed By: #### A DIFF, GFR, CBC, CMP, FE, ANEU #### [address] [address] BUN/Creatinine Ratio 29 ratio High 7-27 [facility] ([place]) Comment on above: Performed By: #### A DIFF, GFR, CBC, CMP, FE, ANEU #### [address] [address] Calcium [Mass/Vol] 9.0 mg/dL Normal 8.4-10.2 [facility] ([place]) Comment on above: Performed By: #### A DIFF, GFR, CBC, CMP, FE, ANEU #### [address] [address] Chloride [Moles/Vol] 106 mmol/L Normal 98-107 [facility] ([place]) Comment on above: Performed By: #### A DIFF, GFR, CBC, CMP, FE, ANEU #### [address] [address] CO2 [Moles/Vol] 29 mmol/L Normal 23-31 [facility] ([place]) Comment on above: Performed By: #### A DIFF, GFR, CBC, CMP, FE, ANEU #### [address] [address] Creatinine [Mass/Vol] 0.77 mg/dL Normal 0.70-1.30 [facility] ([place]) Comment on above: Performed By: #### A DIFF, GFR, CBC, CMP, FE, ANEU #### [address] [address] Electrolyte Balance 8.0 mEq/L Normal 4.0-15.0 [facility] ([place]) Comment on above: Performed By: #### A DIFF, GFR, CBC, CMP, FE, ANEU #### [address] [address] Globulin 4.4 G/dL Normal [facility] ([place]) Comment on above: Performed By: #### A DIFF, GFR, CBC, CMP, FE, ANEU #### [address] [address] Glucose [Mass/Vol] 132 mg/dL High 83-110 [facility] ([place]) Comment on above: Performed By: #### A DIFF, GFR, CBC, CMP, FE, ANEU #### [address] [address] Potassium [Moles/Vol] 4.4 mmol/L Normal 3.5-5.1 [facility] ([place]) Comment on above: Performed By: #### A DIFF, GFR, CBC, CMP, FE, ANEU #### [address] [address] Sodium [Moles/Vol] 143 mmol/L Normal 136-145 [facility] ([place]) Comment on above: Performed By: #### A DIFF, GFR, CBC, CMP, FE, ANEU #### [address] [address] Total Protein 7.9 G/dL Normal 6.4-8.2 [facility] ([place]) Comment on above: Performed By: #### A DIFF, GFR, CBC, CMP, FE, ANEU #### [place] [address] Urea nitrogen [Mass/Vol] 22 mg/dL High 05-14 [facility] ([place]) Comment on above: Performed By: #### A DIFF, GFR, CBC, CMP, FE, ANEU #### [place] [address] HEPACon 04-15-2024 Hep A IgM Ab Non-Reactive Normal Non-Reactive [facility] ([place]) Comment on above: Performed By: #### A DIFF, GFR, CBC, CMP, FE, ANEU #### [place] [address] Hep A IgM Ab Int Normal [facility] ([place]) Comment on above: Result Comment: No s erological evidence of a current Hepatitis A infection. See Interp Performed By: #### A DIFF, GFR, CBC, CMP, FE, ANEU #### [place] [address] Hep B Core IgM Ab Non-Reactive Normal Non-Reactive [facility] ([place]) Comment on above: Performed By: #### A DIFF, GFR, CBC, CMP, FE, ANEU #### [place] [address] Hep B Core IgM Ab Int Normal [facility] ([place]) Comment on above: Result Comment: Samp les with a value < 0.80 Index are considered nonreactive (negative) for IgM antibodies to hepatitis B core antigen. See Interp Performed By: #### A DIFF, GFR, CBC, CMP, FE, ANEU #### [place] [address] Hep B Surf Ag Non-Reactive Normal Non-Reactive [facility] ([place]) Comment on above: Performed By: #### A DIFF, GFR, CBC, CMP, FE, ANEU #### [place] [address] Hep C Ab Non-Reactive Normal Non-Reactive [facility] ([place]) Comment on above: Performed By: #### A DIFF, GFR, CBC, CMP, FE, ANEU #### [facility] [address], [place] [address] Hep C Ab Int Normal [facility] ([place]) Comment on above: Result Comment: Nonr eactive: Samples with a value < 0.80 are considered nonreactive (negative) for antibodies to HCV. A negative test result does not exclude the possibility of exposure to or infection with HCV. HCV antibodies may be undetectable in some stages of the infection and in some clinical conditions. See Interp Performed By: #### A DIFF, GFR, CBC, CMP, FE, ANEU #### [facility] [address], [place] [address] LABORATORYOrdered By: SYSTEM SYSTEM on 04-15-2024 Albumin BCP dye [Mass/Vol] 3.5 G/dL Normal 3.4 - 4.8 G/dL AO ADM SS Albumin/Globulin [Mass ratio] 0.8 {ratio} Low 1.1 - 2.5 ratio AO ADM SS ALP [Catalytic activity/Vol] 116 U/L Normal 40 - 135 U/L AO ADM SS ALT With P-5'-P [Catalytic activity/Vol] 53 U/L Normal 16 - 63 U/L AO ADM SS AST With P-5'-P [Catalytic activity/Vol] 25 U/L Normal 10 - 40 U/L AO ADM SS Bilirubin [Mass/Vol] 0.4 mg/dL Normal 0.2 - 1 .0 mg/dL AO ADM SS Comment on above: Interpretive Data: U se of this assay is not recommended for patients undergoing treatment with eltrombopag due to the potential for falsely elevated results. Calcium [Mass/Vol] 9.0 mg/dL Normal 8.4 - 10. 2 mg/dL AO ADM SS Chloride [Moles/Vol] 106 mmol/L Normal 98 - 10 7 mmol/L AO ADM SS CO2 [Moles/Vol] 29 mmol/L Normal 23 - 31 mmol/L AO ADM SS Creatinine [Mass/Vol] 0.77 mg/dL Normal 0.70 - 1.30 mg/dL AO ADM SS Electrolyte Balance 8.0 mEq/L Normal 4.0 - 15 .0 mEq/L AO ADM SS GFR/1.73 sq M.predicted among blacks MDRD (S/P/Bld) [Vol rate/Area] 119 ml/min/1.73sqm Invalid Interpretation Code AO Chemistry S Comment on above: Interpretive Data: GFR Population mean for , Non- Americans Ages 20-29 = 116 mL/min/1.73 sq.m. Ages 30-39 = 107 mL/min/1.73 sq.m. Ages 40-49 = 99 mL/min/1.73 sq.m. Ages 50-59 = 93 mL/min/1.73 sq.m. Ages 60-69 = 85 mL/min/1.73 sq.m. Ages 70+ = 75 mL/min/1.73 sq.m. Chronic Kidney Disease: Less than 60 mL/min/1.73 square meters End Stage Renal Disease: Less than 15 mL/min/1.73 square meters GFR/1.73 sq M.predicted among non-blacks MDRD (S/P/Bld) [Vol rate/Area] 98 ml/min/1.73sqm Invalid Interpretation Code AO Chemistry S Comment on above: Interpretive Data: GFR Population mean for , Non- Americans Ages 20-29 = 116 mL/min/1.73 sq.m. Ages 30-39 = 107 mL/min/1.73 sq.m. Ages 40-49 = 99 mL/min/1.73 sq.m. Ages 50-59 = 93 mL/min/1.73 sq.m. Ages 60-69 = 85 mL/min/1.73 sq.m. Ages 70+ = 75 mL/min/1.73 sq.m. Chronic Kidney Disease: Less than 60 mL/min/1.73 square meters End Stage Renal Disease: Less than 15 mL/min/1.73 square meters Globulin 4.4 G/dL Invalid Interpretation Code AO ADM SS Glucose [Mass/Vol] 132 mg/dL High 83 - 110 mg/dL AO ADM SS Potassium [Moles/Vol] 4.4 mmol/L Normal 3.5 - 5.1 mmol/L AO ADM SS Protein [Mass/Vol] 7.9 G/dL Normal 6.4 - 8.2 G/dL AO ADM SS Sodium [Moles/Vol] 143 mmol/L Normal 136 - 145 mmol/L AO ADM SS Urea nitrogen [Mass/Vol] 22 mg/dL High 7 - 18 mg/dL AO ADM SS Urea nitrogen/Creatinine [Mass ratio] 29 ratio High 7 - 27 ratio AO ADM SS LABORATORYOrdered By: Viktoria Smith on 04-15-2024 HAV IgM IA Ql Non-Reactive (04/15/24 7:16 AM) Normal Non-Reactive AH ADM SS HAV IgM IA Ql No serological evidence of a current Hepatitis A infection. Invalid Interpretation Code Chemistry S HBV core IgM IA Ql Non-Reactive (04/15/24 7:16 AM) Normal Non-Reactive AH ADM SS HBV core IgM IA Ql Samples with a value < 0.80 Index are considered nonreactive (negative) for IgM antibodies to hepatitis B core antigen. Invalid Interpretation Code Chemistry S HBV surface Ag IA Ql Non-Reactive (04/15/24 7:16 AM) Normal Non-Reactive AH ADM SS HCV Ab IA Ql Non-Reactive (04/15/24 7:16 AM) Normal Non-Reactive AH ADM SS HCV Ab IA Ql Nonreactive: Samples with a value < 0.80 are considered nonreactive (negative) for antibodies to HCV.A negative test result does not exclude the possibility of exposure to or infection with HCV. HCV antibodies may be undetectable in some stages of the infection and in some clinical conditions. Invalid Interpretation Code Chemistry S .Auto Diffon 01-22-2024 Basophil, Absolute 0.1 10 3/mcL Normal 0.0-0.2 [facility] ([place]) Comment on above: Performed By: #### A DIFF, GFR, CBC, CMP, FE, ANEU #### [address] [address] Basophils/100 WBC (Bld) 1.1 % Normal 0.0-2.5 [facility] ([place]) Comment on above: Performed By: #### A DIFF, GFR, CBC, CMP, FE, ANEU #### [address] [address] Eosinophil, Absolute 0.8 10 3/mcL High 0.0-0.4 [facility] ([place] Comment on above: Performed By: #### A DIFF, GFR, CBC, CMP, FE, ANEU #### [address] [address] Eosinophils/100 WBC (Bld) 10.7 % High 0.0-7.0 [facility] ([place]) Comment on above: Performed By: #### A DIFF, GFR, CBC, CMP, FE, ANEU #### [address] [address] Lymphocyte, Absolute 2.7 10 3/mcL Normal 0.8-3.9 [facility] ([place] Comment on above: Performed By: #### A DIFF, GFR, CBC, CMP, FE, ANEU #### [address] [address] Lymphocytes/100 WBC (Bld) 35.6 % Normal 10.0-50.0 [facility] ([place]) Comment on above: Performed By: #### A DIFF, GFR, CBC, CMP, FE, ANEU #### [address] [address] Monocyte, Absolute 0.9 10 3/mcL Normal 0.2-1.0 [facility] ([place]) Comment on above: Performed By: #### A DIFF, GFR, CBC, CMP, FE, ANEU #### [address] [address] Monocytes/100 WBC (Bld) 11.6 % Normal 1.7-13.0 [facility] ([place]) Comment on above: Performed By: #### A DIFF, GFR, CBC, CMP, FE, ANEU #### [address] [address] Neutrophils/100 WBC (Bld) 41.0 % Normal 37.0-80.0 [facility] ([place]) Comment on above: Performed By: #### A DIFF, GFR, CBC, CMP, FE, ANEU #### [address] [address] .GFRon 01-22-2024 GFR 98 ml/min/1.73sqm Normal [facility] ([place]) Comment on above: Result Comment: GFR Population mean for , Non- Americans Ages 20-29 = 116 mL/min/1.73 sq.m. Ages 30-39 = 107 mL/min/1.73 sq.m. Ages 40-49 = 99 mL/min/1.73 sq.m. Ages 50-59 = 93 mL/min/1.73 sq.m. Ages 60-69 = 85 mL/min/1.73 sq.m. Ages 70+ = 75 mL/min/1.73 sq.m. Chronic Kidney Disease: Less than 60 mL/min/1.73 square meters End Stage Renal Disease: Less than 15 mL/min/1.73 square meters Performed By: #### A DIFF, GFR, CBC, CMP, FE, ANEU #### [address] [address] GFR Non- 81 ml/min/1.73sqm Normal [facility] ([place]) Comment on above: Result Comment: GFR Population mean for , Non- Americans Ages 20-29 = 116 mL/min/1.73 sq.m. Ages 30-39 = 107 mL/min/1.73 sq.m. Ages 40-49 = 99 mL/min/1.73 sq.m. Ages 50-59 = 93 mL/min/1.73 sq.m. Ages 60-69 = 85 mL/min/1.73 sq.m. Ages 70+ = 75 mL/min/1.73 sq.m. Chronic Kidney Disease: Less than 60 mL/min/1.73 square meters End Stage Renal Disease: Less than 15 mL/min/1.73 square meters Performed By: #### A DIFF, GFR, CBC, CMP, FE, ANEU #### [address] [address] .NEUABSon 01-22-2024 Neutrophil, Absolute 3.1 10 3/mcL Normal 2.9-6.2 [facility] Comment on above: Performed By: #### A DIFF, GFR, CBC, CMP, FE, ANEU #### [address] [address] CBCon 01-22-2024 Erythrocyte distribution width (RBC) [Ratio] 13.9 % Normal 11.5-14.5 [facility] ([place]) Comment on above: Performed By: #### A DIFF, GFR, CBC, CMP, FE, ANEU #### [address] [address] Hematocrit (Bld) [Volume fraction] 39.8 % Low 42.0-52.0 [facility] ([place]) Comment on above: Performed By: #### A DIFF, GFR, CBC, CMP, FE, ANEU #### [address] [address] Hgb 13.1 G/dL Low 14.0-18.0 [facility] ([place]) Comment on above: Performed By: #### A DIFF, GFR, CBC, CMP, FE, ANEU #### [address] [address] MCH (RBC) [Entitic mass] 25.3 pg Low 27.0-31.2 [facility] ([place]) Comment on above: Performed By: #### A DIFF, GFR, CBC, CMP, FE, ANEU #### [address] [address] MCHC 32.9 G/dL Normal 31.8-35.4 [facility] ([place]) Comment on above: Performed By: #### A DIFF, GFR, CBC, CMP, FE, ANEU #### [address] [address] MCV (RBC) [Entitic vol] 77.0 fL Low 80.0-94.0 [facility] ([place]) Comment on above: Performed By: #### A DIFF, GFR, CBC, CMP, FE, ANEU #### [address] [address] Platelet 172 10 3/mcL Normal 130-400 [facility] ([place]) Comment on above: Performed By: #### A DIFF, GFR, CBC, CMP, FE, ANEU #### [address] [address] Platelet mean volume (Bld) [Entitic vol] 8.3 fL Normal 7.4-10.4 [facility] ([place]) Comment on above: Performed By: #### A DIFF, GFR, CBC, CMP, FE, ANEU #### [address] [address] RBC 5.17 10 6/mcL Normal 4.04-6.13 [facility] ([place]) Comment on above: Performed By: #### A DIFF, GFR, CBC, CMP, FE, ANEU #### [address] [address] WBC 7.6 10 3/mcL Normal 4.6-10.8 [facility] ([place]) Comment on above: Performed By: #### A DIFF, GFR, CBC, CMP, FE, ANEU #### [address] [address] CMPon 01-22-2024 Albumin Level 3.5 G/dL Normal 3.4-4.8 [facility] ([place]) Comment on above: Performed By: #### A DIFF, GFR, CBC, CMP, FE, ANEU #### [address] [address] Albumin/Globulin [Mass ratio] 0.9 {ratio} Low 1.1-2.5 [facility] ([place]) Comment on above: Performed By: #### A DIFF, GFR, CBC, CMP, FE, ANEU #### [address] [address] ALP [Catalytic activity/Vol] 85 U/L Normal 40-135 [facility] ([place]) Comment on above: Performed By: #### A DIFF, GFR, CBC, CMP, FE, ANEU #### [address] [address] ALT [Catalytic activity/Vol] 64 U/L High 16-63 [facility] ([place]) Comment on above: Performed By: #### A DIFF, GFR, CBC, CMP, FE, ANEU #### [address] [address] AST [Catalytic activity/Vol] 32 U/L Normal 10-40 [facility] ([place]) Comment on above: Performed By: #### A DIFF, GFR, CBC, CMP, FE, ANEU #### [address] [address] Bili Total 0.5 mg/dL Normal 0.2-1.0 [facility] ([place]) Comment on above: Result Comment: Use of this assay is not recommended for patients undergoing treatment with eltrombopag due to the potential for falsely elevated results. Performed By: #### A DIFF, GFR, CBC, CMP, FE, ANEU #### [place] [id number] BUN/Creatinine Ratio 22 ratio Normal 7-27 [facility] ([place]) Comment on above: Performed By: #### A DIFF, GFR, CBC, CMP, FE, ANEU #### [address] [address] Calcium [Mass/Vol] 9.3 mg/dL Normal 8.4-10.2 [facility] ([place]) Comment on above: Performed By: #### A DIFF, GFR, CBC, CMP, FE, ANEU #### [place] [id number] Chloride [Moles/Vol] 106 mmol/L Normal 98-107 [facility] ([place]) Comment on above: Performed By: #### A DIFF, GFR, CBC, CMP, FE, ANEU #### [address] [address] CO2 [Moles/Vol] 30 mmol/L Normal 23-31 [facility] ([place]) Comment on above: Performed By: #### A DIFF, GFR, CBC, CMP, FE, ANEU #### [address] [address] Creatinine [Mass/Vol] 0.91 mg/dL Normal 0.70-1.30 [facility] ([place]) Comment on above: Performed By: #### A DIFF, GFR, CBC, CMP, FE, ANEU #### [address] [address] Electrolyte Balance 7.0 mEq/L Normal 4.0-15.0 [facility] ([place]) Comment on above: Performed By: #### A DIFF, GFR, CBC, CMP, FE, ANEU #### [address] [address] Globulin 4.1 G/dL Normal [facility] ([place]) Comment on above: Performed By: #### A DIFF, GFR, CBC, CMP, FE, ANEU #### [address] [address] Glucose [Mass/Vol] 152 mg/dL High 83-110 [facility] ([place]) Comment on above: Performed By: #### A DIFF, GFR, CBC, CMP, FE, ANEU #### [address] [address] Potassium [Moles/Vol] 5.6 mmol/L High 3.5-5.1 [facility] ([place]) Comment on above: Performed By: #### A DIFF, GFR, CBC, CMP, FE, ANEU #### [address] [address] Sodium [Moles/Vol] 143 mmol/L Normal 136-145 [facility] ([place]) Comment on above: Performed By: #### A DIFF, GFR, CBC, CMP, FE, ANEU #### [address] [address] Total Protein 7.6 G/dL Normal 6.4-8.2 [facility] ([place]) Comment on above: Performed By: #### A DIFF, GFR, CBC, CMP, FE, ANEU #### [address] [address] Urea nitrogen [Mass/Vol] 20 mg/dL High 7-18 [facility] ([place]) Comment on above: Performed By: #### A DIFF, GFR, CBC, CMP, FE, ANEU #### [address] [address] FEon 01-22-2024 Iron [Mass/Vol] 86 ug/dL Normal 65-175 [facility] ([place]) Comment on above: Performed By: #### A DIFF, GFR, CBC, CMP, FE, ANEU #### [address] [address] LABORATORYOrdered By: SYSTEM SYSTEM on 01-22-2024 Albumin BCP dye [Mass/Vol] 3.5 G/dL Normal 3.4 - 4.8 G/dL AO ADM SS Albumin/Globulin [Mass ratio] 0.9 {ratio} Low 1.1 - 2.5 ratio AO ADM SS ALP [Catalytic activity/Vol] 85 U/L Normal 40 - 135 U/L AO ADM SS ALT With P-5'-P [Catalytic activity/Vol] 64 U/L High 16 - 63 U/L AO ADM SS AST With P-5'-P [Catalytic activity/Vol] 32 U/L Normal 10 - 40 U/L AO ADM SS Basophil, Absolute 0.1 103/mcL Normal 0.0 - 0.2 10^3/mcL AO Workflow SS Basophils/100 WBC (Bld) 1.1 % Normal 0.0 - 2.5 % AO Workflow SS Bilirubin [Mass/Vol] 0.5 mg/dL Normal 0.2 - 1 .0 mg/dL AO ADM SS Comment on above: Interpretive Data: U se of this assay is not recommended for patients undergoing treatment with eltrombopag due to the potential for falsely elevated results. Calcium [Mass/Vol] 9.3 mg/dL Normal 8.4 - 10. 2 mg/dL AO ADM SS Chloride [Moles/Vol] 106 mmol/L Normal 98 - 10 7 mmol/L AO ADM SS CO2 [Moles/Vol] 30 mmol/L Normal 23 - 31 mmol/L AO ADM SS Creatinine [Mass/Vol] 0.91 mg/dL Normal 0.70 - 1.30 mg/dL AO ADM SS Electrolyte Balance 7.0 mEq/L Normal 4.0 - 15 .0 mEq/L AO ADM SS Eosinophil, Absolute 0.8 103/mcL High 0.0 - 0 .4 10^3/mcL AO Workflow SS Eosinophils/100 WBC (Bld) 10.7 % High 0.0 - 7.0 % AO Workflow SS Erythrocyte distribution width (RBC) [Ratio] 13.9 % Normal 11.5 - 14.5 % AO Workflow SS GFR/1.73 sq M.predicted among blacks MDRD (S/P/Bld) [Vol rate/Area] 98 ml/min/1.73sqm Invalid Interpretation Code AO Chemistry S Comment on above: Interpretive Data: GFR Population mean for , Non- Americans Ages 20-29 = 116 mL/min/1.73 sq.m. Ages 30-39 = 107 mL/min/1.73 sq.m. Ages 40-49 = 99 mL/min/1.73 sq.m. Ages 50-59 = 93 mL/min/1.73 sq.m. Ages 60-69 = 85 mL/min/1.73 sq.m. Ages 70+ = 75 mL/min/1.73 sq.m. Chronic Kidney Disease: Less than 60 mL/min/1.73 square meters End Stage Renal Disease: Less than 15 mL/min/1.73 square meters GFR/1.73 sq M.predicted among non-blacks MDRD (S/P/Bld) [Vol rate/Area] 81 ml/min/1.73sqm Invalid Interpretation Code AO Chemistry S Comment on above: Interpretive Data: GFR Population mean for , Non- Americans Ages 20-29 = 116 mL/min/1.73 sq.m. Ages 30-39 = 107 mL/min/1.73 sq.m. Ages 40-49 = 99 mL/min/1.73 sq.m. Ages 50-59 = 93 mL/min/1.73 sq.m. Ages 60-69 = 85 mL/min/1.73 sq.m. Ages 70+ = 75 mL/min/1.73 sq.m. Chronic Kidney Disease: Less than 60 mL/min/1.73 square meters End Stage Renal Disease: Less than 15 mL/min/1.73 square meters Globulin 4.1 G/dL Invalid Interpretation Code AO ADM SS Glucose [Mass/Vol] 152 mg/dL High 83 - 110 mg/dL AO ADM SS Hematocrit (Bld) [Volume fraction] 39.8 % Low 42.0 - 52.0 % AO Workflow SS Hemoglobin (Bld) [Mass/Vol] 13.1 G/dL Low 14.0 - 18.0 G/dL AO Workflow SS Iron [Mass/Vol] 86 ug/dL Normal 65 - 175 mcg/dL AO ADM SS Lymphocyte, Absolute 2.7 103/mcL Normal 0.8 - 3 .9 10^3/mcL AO Workflow SS Lymphocytes/100 WBC (Bld) 35.6 % Normal 10.0 - 50.0 % AO Workflow SS MCH (RBC) [Entitic mass] 25.3 pg Low 27.0 - 31.2 pg AO Workflow SS MCHC 32.9 G/dL Normal 31.8 - 35.4 G/dL AO Workflow SS MCV (RBC) [Entitic vol] 77.0 fL Low 80.0 - 94.0 fL AO Workflow SS Monocyte, Absolute 0.9 103/mcL Normal 0.2 - 1.0 10^3/mcL AO Workflow SS Monocytes/100 WBC (Bld) 11.6 % Normal 1.7 - 13.0 % AO Workflow SS Neutrophil, Absolute 3.1 103/mcL Normal 2.9 - 6 .2 10^3/mcL AO Workflow SS Neutrophils/100 WBC (Bld) 41.0 % Normal 37.0 - 80.0 % AO Workflow SS Platelet mean volume (Bld) [Entitic vol] 8.3 fL Normal 7.4 - 10.4 fL AO Workflow SS Platelets (Bld) [#/Vol] 172 103/mcL Normal 130 - 400 10^3/mcL AO Workflow SS Potassium [Moles/Vol] 5.6 mmol/L High 3.5 - 5.1 mmol/L AO ADM SS Protein [Mass/Vol] 7.6 G/dL Normal 6.4 - 8.2 G/dL AO ADM SS RBC (Bld) [#/Vol] 5.17 106/mcL Normal 4.04 - 6.1 3 10^6/mcL AO Workflow SS Sodium [Moles/Vol] 143 mmol/L Normal 136 - 145 mmol/L AO ADM SS Urea nitrogen [Mass/Vol] 20 mg/dL High 7 - 18 mg/dL AO ADM SS Urea nitrogen/Creatinine [Mass ratio] 22 ratio Normal 7 - 27 ratio AO ADM SS WBC (Bld) [#/Vol] 7.6 103/mcL Normal 4.6 - 10.8 10^3/mcL AO Workflow SS .Auto Diffon 01-17-2024 Basophil, Absolute 0.1 10 3/mcL Normal 0.0-0.2 [facility] ([place]) Comment on above: Performed By: #### A DIFF, GFR, CBC, CMP, FE, ANEU #### [place] [address] [address] Basophils/100 WBC (Bld) 1.0 % Normal 0.0-2.5 [facility] ([place]) Comment on above: Performed By: #### A DIFF, GFR, CBC, CMP, FE, ANEU #### [address] [address] Eosinophil, Absolute 0.9 10 3/mcL High 0.0-0.4 [facility] Comment on above: Performed By: #### A DIFF, GFR, CBC, CMP, FE, ANEU #### [address] [address] Eosinophils/100 WBC (Bld) 12.1 % High 0.0-7.0 [facility] ([place]) Comment on above: Performed By: #### A DIFF, GFR, CBC, CMP, FE, ANEU #### [address] [address] Lymphocyte, Absolute 2.3 10 3/mcL Normal 0.8-3.9 [facility] Comment on above: Performed By: #### A DIFF, GFR, CBC, CMP, FE, ANEU #### [address] [address] Lymphocytes/100 WBC (Bld) 30.9 % Normal 10.0-50.0 [facility] ([place]) Comment on above: Performed By: #### A DIFF, GFR, CBC, CMP, FE, ANEU #### [address] [address] Monocyte, Absolute 0.9 10 3/mcL Normal 0.2-1.0 [facility] ([place]) Comment on above: Performed By: #### A DIFF, GFR, CBC, CMP, FE, ANEU #### [address] [address] Monocytes/100 WBC (Bld) 12.8 % Normal 1.7-13.0 [facility] ([place]) Comment on above: Performed By: #### A DIFF, GFR, CBC, CMP, FE, ANEU #### [address] [address] Neutrophils/100 WBC (Bld) 43.2 % Normal 37.0-80.0 [facility] ([place]) Comment on above: Performed By: #### A DIFF, GFR, CBC, CMP, FE, ANEU #### [address] [address] .GFRon 01-17-2024 GFR 91 ml/min/1.73sqm Normal [facility] ([place]) Comment on above: Result Comment: GFR Population mean for , Non- Americans Ages 20-29 = 116 mL/min/1.73 sq.m. Ages 30-39 = 107 mL/min/1.73 sq.m. Ages 40-49 = 99 mL/min/1.73 sq.m. Ages 50-59 = 93 mL/min/1.73 sq.m. Ages 60-69 = 85 mL/min/1.73 sq.m. Ages 70+ = 75 mL/min/1.73 sq.m. Chronic Kidney Disease: Less than 60 mL/min/1.73 square meters End Stage Renal Disease: Less than 15 mL/min/1.73 square meters Performed By: #### A DIFF, GFR, CBC, CMP, FE, ANEU #### [address] [address] GFR Non- 75 ml/min/1.73sqm Normal [facility] ([place]) Comment on above: Result Comment: GFR Population mean for , Non- Americans Ages 20-29 = 116 mL/min/1.73 sq.m. Ages 30-39 = 107 mL/min/1.73 sq.m. Ages 40-49 = 99 mL/min/1.73 sq.m. Ages 50-59 = 93 mL/min/1.73 sq.m. Ages 60-69 = 85 mL/min/1.73 sq.m. Ages 70+ = 75 mL/min/1.73 sq.m. Chronic Kidney Disease: Less than 60 mL/min/1.73 square meters End Stage Renal Disease: Less than 15 mL/min/1.73 square meters Performed By: #### A DIFF, GFR, CBC, CMP, FE, ANEU #### [address] [address] .NEUABSon 01-17-2024 Neutrophil, Absolute 3.2 10 3/mcL Normal 2.9-6.2 [facility] Comment on above: Performed By: #### A DIFF, GFR, CBC, CMP, FE, ANEU #### [address] [address] CBCon 01-17-2024 Erythrocyte distribution width (RBC) [Ratio] 14.1 % Normal 11.5-14.5 [facility] ([place]) Comment on above: Performed By: #### A DIFF, GFR, CBC, CMP, FE, ANEU #### [place] [address] Hematocrit (Bld) [Volume fraction] 40.0 % Low 42.0-52.0 [facility] ([place]) Comment on above: Performed By: #### A DIFF, GFR, CBC, CMP, FE, ANEU #### [place] [address] Hgb 13.2 G/dL Low 14.0-18.0 [facility] ([place]) Comment on above: Performed By: #### A DIFF, GFR, CBC, CMP, FE, ANEU #### [place] 760247 MCH (RBC) [Entitic mass] 25.5 pg Low 27.0-31.2 [facility] ([place]) Comment on above: Performed By: #### A DIFF, GFR, CBC, CMP, FE, ANEU #### [place] [address] MCHC 33.1 G/dL Normal 31.8-35.4 [facility] ([place]) Comment on above: Performed By: #### A DIFF, GFR, CBC, CMP, FE, ANEU #### [place] [address] MCV (RBC) [Entitic vol] 77.0 fL Low 80.0-94.0 [facility] ([place]) Comment on above: Performed By: #### A DIFF, GFR, CBC, CMP, FE, ANEU #### [address] [address] Platelet 185 10 3/mcL Normal 130-400 [facility] ([place]) Comment on above: Performed By: #### A DIFF, GFR, CBC, CMP, FE, ANEU #### [address] [address] Platelet mean volume (Bld) [Entitic vol] 8.1 fL Normal 7.4-10.4 [facility] ([place]) Comment on above: Performed By: #### A DIFF, GFR, CBC, CMP, FE, ANEU #### [address] [address] RBC 5.19 10 6/mcL Normal 4.04-6.13 [facility] ([place]) Comment on above: Performed By: #### A DIFF, GFR, CBC, CMP, FE, ANEU #### [address] [address] WBC 7.4 10 3/mcL Normal 4.6-10.8 [facility] ([place]) Comment on above: Performed By: #### A DIFF, GFR, CBC, CMP, FE, ANEU #### [address] [address] CMPon 01-17-2024 Albumin Level 3.5 G/dL Normal 3.4-4.8 [facility]) Comment on above: Performed By: #### A DIFF, GFR, CBC, CMP, FE, ANEU #### [address] [address] Albumin/Globulin [Mass ratio] 0.8 {ratio} Low 1.1-2.5 [facility] ([place]) Comment on above: Performed By: #### A DIFF, GFR, CBC, CMP, FE, ANEU #### [address] [address] ALP [Catalytic activity/Vol] 78 U/L Normal 40-135 [facility] ([place]) Comment on above: Performed By: #### A DIFF, GFR, CBC, CMP, FE, ANEU #### [address] [address] ALT [Catalytic activity/Vol] 59 U/L Normal 16-63 [facility] ([place]) Comment on above: Performed By: #### A DIFF, GFR, CBC, CMP, FE, ANEU #### [address] [address] AST [Catalytic activity/Vol] 30 U/L Normal 10-40 [facility] ([place]) Comment on above: Performed By: #### A DIFF, GFR, CBC, CMP, FE, ANEU #### [address] [address] Bili Total 0.7 mg/dL Normal 0.2-1.0 [facility] ([place]) Comment on above: Result Comment: Use of this assay is not recommended for patients undergoing treatment with eltrombopag due to the potential for falsely elevated results. Performed By: #### A DIFF, GFR, CBC, CMP, FE, ANEU #### [address] [address] BUN/Creatinine Ratio 14 ratio Normal 7-27 [facility] ([place]) Comment on above: Performed By: #### A DIFF, GFR, CBC, CMP, FE, ANEU #### [address] [address] Calcium [Mass/Vol] 9.3 mg/dL Normal 8.4-10.2 [facility] ([place]) Comment on above: Performed By: #### A DIFF, GFR, CBC, CMP, FE, ANEU #### [address] [address] Chloride [Moles/Vol] 106 mmol/L Normal 98-107 [facility] ([place]) Comment on above: Performed By: #### A DIFF, GFR, CBC, CMP, FE, ANEU #### [address] [address] CO2 [Moles/Vol] 32 mmol/L High 23-31 [facility] ([place]) Comment on above: Performed By: #### A DIFF, GFR, CBC, CMP, FE, ANEU #### [address] [address] Creatinine [Mass/Vol] 0.97 mg/dL Normal 0.70-1.30 [facility] ([place]) Comment on above: Performed By: #### A DIFF, GFR, CBC, CMP, FE, ANEU #### [address] [address] Electrolyte Balance 5.0 mEq/L Normal 4.0-15.0 [facility] ([place]) Comment on above: Performed By: #### A DIFF, GFR, CBC, CMP, FE, ANEU #### [address] [address] Globulin 4.3 G/dL Normal [facility] ([place]) Comment on above: Performed By: #### A DIFF, GFR, CBC, CMP, FE, ANEU #### [address] [address] Glucose [Mass/Vol] 148 mg/dL High 83-110 [facility] ([place]) Comment on above: Performed By: #### A DIFF, GFR, CBC, CMP, FE, ANEU #### [address] [address] Potassium [Moles/Vol] 5.3 mmol/L High 3.5-5.1 [facility] ([place]) Comment on above: Performed By: #### A DIFF, GFR, CBC, CMP, FE, ANEU #### [address] [address] Sodium [Moles/Vol] 143 mmol/L Normal 136-145 [facility] ([place]) Comment on above: Performed By: #### A DIFF, GFR, CBC, CMP, FE, ANEU #### [address] [address] Total Protein 7.8 G/dL Normal 6.4-8.2 [facility] ([place]) Comment on above: Performed By: #### A DIFF, GFR, CBC, CMP, FE, ANEU #### [address] [address] Urea nitrogen [Mass/Vol] 14 mg/dL Normal 7-18 [facility] ([place]) Comment on above: Performed By: #### A DIFF, GFR, CBC, CMP, FE, ANEU #### [place] [id number] [place], [place] [address] FEon 01-17-2024 Iron [Mass/Vol] 130 ug/dL Normal 65-175 [facility] ([place]) Comment on above: Performed By: #### A DIFF, GFR, CBC, CMP, FE, ANEU #### [place] [id number] [place], [place] [address] LABORATORYOrdered By: SYSTEM SYSTEM on 01-17-2024 Albumin BCP dye [Mass/Vol] 3.5 G/dL Normal 3.4 - 4.8 G/dL AO ADM SS Albumin/Globulin [Mass ratio] 0.8 {ratio} Low 1.1 - 2.5 ratio AO ADM SS ALP [Catalytic activity/Vol] 78 U/L Normal 40 - 135 U/L AO ADM SS ALT With P-5'-P [Catalytic activity/Vol] 59 U/L Normal 16 - 63 U/L AO ADM SS AST With P-5'-P [Catalytic activity/Vol] 30 U/L Normal 10 - 40 U/L AO ADM SS Basophil, Absolute 0.1 103/mcL Normal 0.0 - 0.2 10^3/mcL AO Workflow SS Basophils/100 WBC (Bld) 1.0 % Normal 0.0 - 2.5 % AO Workflow SS Bilirubin [Mass/Vol] 0.7 mg/dL Normal 0.2 - 1 .0 mg/dL AO ADM SS Comment on above: Interpretive Data: U se of this assay is not recommended for patients undergoing treatment with eltrombopag due to the potential for falsely elevated results. Calcium [Mass/Vol] 9.3 mg/dL Normal 8.4 - 10. 2 mg/dL AO ADM SS Chloride [Moles/Vol] 106 mmol/L Normal 98 - 10 7 mmol/L AO ADM SS CO2 [Moles/Vol] 32 mmol/L High 23 - 31 mmol/L AO ADM SS Creatinine [Mass/Vol] 0.97 mg/dL Normal 0.70 - 1.30 mg/dL AO ADM SS Electrolyte Balance 5.0 mEq/L Normal 4.0 - 15 .0 mEq/L AO ADM SS Eosinophil, Absolute 0.9 103/mcL High 0.0 - 0 .4 10^3/mcL AO Workflow SS Eosinophils/100 WBC (Bld) 12.1 % High 0.0 - 7.0 % AO Workflow SS Erythrocyte distribution width (RBC) [Ratio] 14.1 % Normal 11.5 - 14.5 % AO Workflow SS GFR/1.73 sq M.predicted among blacks MDRD (S/P/Bld) [Vol rate/Area] 91 ml/min/1.73sqm Invalid Interpretation Code AO Chemistry S Comment on above: Interpretive Data: GFR Population mean for , Non- Americans Ages 20-29 = 116 mL/min/1.73 sq.m. Ages 30-39 = 107 mL/min/1.73 sq.m. Ages 40-49 = 99 mL/min/1.73 sq.m. Ages 50-59 = 93 mL/min/1.73 sq.m. Ages 60-69 = 85 mL/min/1.73 sq.m. Ages 70+ = 75 mL/min/1.73 sq.m. Chronic Kidney Disease: Less than 60 mL/min/1.73 square meters End Stage Renal Disease: Less than 15 mL/min/1.73 square meters GFR/1.73 sq M.predicted among non-blacks MDRD (S/P/Bld) [Vol rate/Area] 75 ml/min/1.73sqm Invalid Interpretation Code AO Chemistry S Comment on above: Interpretive Data: GFR Population mean for , Non- Americans Ages 20-29 = 116 mL/min/1.73 sq.m. Ages 30-39 = 107 mL/min/1.73 sq.m. Ages 40-49 = 99 mL/min/1.73 sq.m. Ages 50-59 = 93 mL/min/1.73 sq.m. Ages 60-69 = 85 mL/min/1.73 sq.m. Ages 70+ = 75 mL/min/1.73 sq.m. Chronic Kidney Disease: Less than 60 mL/min/1.73 square meters End Stage Renal Disease: Less than 15 mL/min/1.73 square meters Globulin 4.3 G/dL Invalid Interpretation Code AO ADM SS Glucose [Mass/Vol] 148 mg/dL High 83 - 110 mg/dL AO ADM SS Hematocrit (Bld) [Volume fraction] 40.0 % Low 42.0 - 52.0 % AO Workflow SS Hemoglobin (Bld) [Mass/Vol] 13.2 G/dL Low 14.0 - 18.0 G/dL AO Workflow SS Iron [Mass/Vol] 130 ug/dL Normal 65 - 175 mcg/dL AO ADM SS Lymphocyte, Absolute 2.3 103/mcL Normal 0.8 - 3 .9 10^3/mcL AO Workflow SS Lymphocytes/100 WBC (Bld) 30.9 % Normal 10.0 - 50.0 % AO Workflow SS MCH (RBC) [Entitic mass] 25.5 pg Low 27.0 - 31.2 pg AO Workflow SS MCHC 33.1 G/dL Normal 31.8 - 35.4 G/dL AO Workflow SS MCV (RBC) [Entitic vol] 77.0 fL Low 80.0 - 94.0 fL AO Workflow SS Monocyte, Absolute 0.9 103/mcL Normal 0.2 - 1.0 10^3/mcL AO Workflow SS Monocytes/100 WBC (Bld) 12.8 % Normal 1.7 - 13.0 % AO Workflow SS Neutrophil, Absolute 3.2 103/mcL Normal 2.9 - 6 .2 10^3/mcL AO Workflow SS Neutrophils/100 WBC (Bld) 43.2 % Normal 37.0 - 80.0 % AO Workflow SS Platelet mean volume (Bld) [Entitic vol] 8.1 fL Normal 7.4 - 10.4 fL AO Workflow SS Platelets (Bld) [#/Vol] 185 103/mcL Normal 130 - 400 10^3/mcL AO Workflow SS Potassium [Moles/Vol] 5.3 mmol/L High 3.5 - 5.1 mmol/L AO ADM SS Protein [Mass/Vol] 7.8 G/dL Normal 6.4 - 8.2 G/dL AO ADM SS RBC (Bld) [#/Vol] 5.19 106/mcL Normal 4.04 - 6.1 3 10^6/mcL AO Workflow SS Sodium [Moles/Vol] 143 mmol/L Normal 136 - 145 mmol/L AO ADM SS Urea nitrogen [Mass/Vol] 14 mg/dL Normal 7 - 18 mg/dL AO ADM SS Urea nitrogen/Creatinine [Mass ratio] 14 ratio Normal 7 - 27 ratio AO ADM SS WBC (Bld) [#/Vol] 7.4 103/mcL Normal 4.6 - 10.8 10^3/mcL AO Workflow SS .Auto Diffon 09-24-2023 Basophil, Absolute 0.1 10 3/mcL Normal 0.0-0.2 [facility] ([place]) Comment on above: Performed By: #### A VIRIDIANA, CBC, FE, GFR, PBNP, CMP, ADIFF #### [address] [address] Basophils/100 WBC (Bld) 1.0 % Normal 0.0-2.5 [facility] ([place]) Comment on above: Performed By: #### A VIRID[place]NA, CBC, FE, GFR, PBNP, CMP, ADIFF #### [address] [address] Eosinophil, Absolute 0.7 10 3/mcL High 0.0-0.4 [facility] ([place]) Comment on above: Performed By: #### A VIRID[place], CBC, FE, GFR, PBNP, CMP, ADIFF #### [address] [address] Eosinophils/100 WBC (Bld) 8.6 % High 0.0-7.0 [facility] ([place]) Comment on above: Performed By: #### A VIRID[place]NA, CBC, FE, GFR, PBNP, CMP, ADIFF #### [address] [address] Lymphocyte, Absolute 2.2 10 3/mcL Normal 0.8-3.9 [facility] ([place]) Comment on above: Performed By: #### A VIRID[place]NA, CBC, FE, GFR, PBNP, CMP, ADIFF #### [address] [address] Lymphocytes/100 WBC (Bld) 29.3 % Normal 10.0-50.0 [facility] ([place]) Comment on above: Performed By: #### A VIRIDIANA, CBC, FE, GFR, PBNP, CMP, ADIFF #### [address] [address] Monocyte, Absolute 0.6 10 3/mcL Normal 0.2-1.0 [facility] ([place]) Comment on above: Performed By: #### A VIRID[place]NA, CBC, FE, GFR, PBNP, CMP, ADIFF #### [address] [address] Monocytes/100 WBC (Bld) 7.6 % Normal 1.7-13.0 [facility] ([place]) Comment on above: Performed By: #### A VIRIDIANA, CBC, FE, GFR, PBNP, CMP, ADIFF #### [address] [address] Neutrophils/100 WBC (Bld) 53.5 % Normal 37.0-80.0 [facility] ([place]) Comment on above: Performed By: #### A VIRIDIANA, CBC, FE, GFR, PBNP, CMP, ADIFF #### [address] [address] .GFRon 09-24-2023 GFR Non- 69 ml/min/1.73sqm Normal [facility] ([place]) Comment on above: Result Comment: GFR Population mean for , Non- Americans Ages 20-29 = 116 mL/min/1.73 sq.m. Ages 30-39 = 107 mL/min/1.73 sq.m. Ages 40-49 = 99 mL/min/1.73 sq.m. Ages 50-59 = 93 mL/min/1.73 sq.m. Ages 60-69 = 85 mL/min/1.73 sq.m. Ages 70+ = 75 mL/min/1.73 sq.m. Chronic Kidney Disease: Less than 60 mL/min/1.73 square meters End Stage Renal Disease: Less than 15 mL/min/1.73 square meters Performed By: #### A DIFF, GFR, CBC, CMP, FE, ANEU #### [address] [address] GFR 83 ml/min/1.73sqm Normal [facility] ([place]) Comment on above: Result Comment: GFR Population mean for , Non- Americans Ages 20-29 = 116 mL/min/1.73 sq.m. Ages 30-39 = 107 mL/min/1.73 sq.m. Ages 40-49 = 99 mL/min/1.73 sq.m. Ages 50-59 = 93 mL/min/1.73 sq.m. Ages 60-69 = 85 mL/min/1.73 sq.m. Ages 70+ = 75 mL/min/1.73 sq.m. Chronic Kidney Disease: Less than 60 mL/min/1.73 square meters End Stage Renal Disease: Less than 15 mL/min/1.73 square meters Performed By: #### A DIFF, GFR, CBC, CMP, FE, ANEU #### [address] [address] .NEUABSon 09-24-2023 Neutrophil, Absolute 4.1 10 3/mcL Normal 2.9-6.2 [facility] Comment on above: Performed By: #### A VIRIDIANA, CBC, FE, GFR, PBNP, CMP, ADIFF #### [address] [address] CBCon 09-24-2023 Erythrocyte distribution width (RBC) [Ratio] 14.8 % High 11.5-14.5 [facility] ([place]) Comment on above: Performed By: #### A VIRIDIANA, CBC, FE, GFR, PBNP, CMP, ADIFF #### [address] [address] Hematocrit (Bld) [Volume fraction] 38.7 % Low 42.0-52.0 [facility] ([place]) Comment on above: Performed By: #### A VIRIDIANA, CBC, FE, GFR, PBNP, CMP, ADIFF #### [address] [address] Hgb 12.7 G/dL Low 14.0-18.0 [facility] ([place]) Comment on above: Performed By: #### A VIRIDIANA, CBC, FE, GFR, PBNP, CMP, ADIFF #### [address] [address] MCH (RBC) [Entitic mass] 24.9 pg Low 27.0-31.2 [facility] ([place]) Comment on above: Performed By: #### A VIRIDIANA, CBC, FE, GFR, PBNP, CMP, ADIFF #### [address] [address] MCHC 32.7 G/dL Normal 31.8-35.4 [facility] ([place]) Comment on above: Performed By: #### A VIRIDIANA, CBC, FE, GFR, PBNP, CMP, ADIFF #### [address] [address] MCV (RBC) [Entitic vol] 76.3 fL Low 80.0-94.0 [facility] ([place]) Comment on above: Performed By: #### A VIRIDIANA, CBC, FE, GFR, PBNP, CMP, ADIFF #### [address] [address] Platelet 219 10 3/mcL Normal 130-400 [facility] ([place]) Comment on above: Performed By: #### A VIRIDIANA, CBC, FE, GFR, PBNP, CMP, ADIFF #### [address] [address] Platelet mean volume (Bld) [Entitic vol] 7.9 fL Normal 7.4-10.4 [facility] ([place]) Comment on above: Performed By: #### A VIRIDIANA, CBC, FE, GFR, PBNP, CMP, ADIFF #### [address] [address] RBC 5.07 10 6/mcL Normal 4.04-6.13 [facility] ([place]) Comment on above: Performed By: #### A VIRIDIANA, CBC, FE, GFR, PBNP, CMP, ADIFF #### [address] [address] WBC 7.6 10 3/mcL Normal 4.6-10.8 [facility] ([place]) Comment on above: Performed By: #### A VIRIDIANA, CBC, FE, GFR, PBNP, CMP, ADIFF #### [address] [address] CMPon 09-24-2023 Albumin Level 3.6 G/dL Normal 3.4-4.8 [facility] ([place]) Comment on above: Performed By: #### A DIFF, GFR, CBC, CMP, FE, ANEU #### [address] [address] Albumin/Globulin [Mass ratio] 0.8 {ratio} Low 1.1-2.5 [facility] ([place]) Comment on above: Performed By: #### A DIFF, GFR, CBC, CMP, FE, ANEU #### [address] [address] ALP [Catalytic activity/Vol] 83 U/L Normal 40-135 [facility] ([place]) Comment on above: Performed By: #### A DIFF, GFR, CBC, CMP, FE, ANEU #### [address] [address] ALT [Catalytic activity/Vol] 64 U/L High 16-63 [facility] ([place]) Comment on above: Performed By: #### A DIFF, GFR, CBC, CMP, FE, ANEU #### [address] [address] AST [Catalytic activity/Vol] 28 U/L Normal 10-40 [facility] ([place]) Comment on above: Performed By: #### A DIFF, GFR, CBC, CMP, FE, ANEU #### [address] [address] Bili Total 0.4 mg/dL Normal 0.2-1.0 [facility] ([place]) Comment on above: Result Comment: Use of this assay is not recommended for patients undergoing treatment with eltrombopag due to the potential for falsely elevated results. Performed By: #### A DIFF, GFR, CBC, CMP, FE, ANEU #### [address] [address] BUN/Creatinine Ratio 16 ratio Normal 7-27 [facility] ([place]) Comment on above: Performed By: #### A DIFF, GFR, CBC, CMP, FE, ANEU #### [address] [address] Calcium [Mass/Vol] 9.2 mg/dL Normal 8.4-10.2 [facility] ([place]) Comment on above: Performed By: #### A DIFF, GFR, CBC, CMP, FE, ANEU #### [place] [address] Chloride [Moles/Vol] 104 mmol/L Normal 98-107 [facility] ([place]) Comment on above: Performed By: #### A DIFF, GFR, CBC, CMP, FE, ANEU #### [place] [address] CO2 [Moles/Vol] 29 mmol/L Normal 23-31 [facility] ([place]) Comment on above: Performed By: #### A DIFF, GFR, CBC, CMP, FE, ANEU #### [place] [address] Creatinine [Mass/Vol] 1.05 mg/dL Normal 0.70-1.30 [facility] ([place]) Comment on above: Performed By: #### A DIFF, GFR, CBC, CMP, FE, ANEU #### [place] [address] Electrolyte Balance 11.0 mEq/L Normal 4.0-15.0 [facility] ([place]) Comment on above: Performed By: #### A DIFF, GFR, CBC, CMP, FE, ANEU #### [place] [address] Globulin 4.3 G/dL Normal [facility] ([place]) Comment on above: Performed By: #### A DIFF, GFR, CBC, CMP, FE, ANEU #### [place] [address] Glucose [Mass/Vol] 129 mg/dL High 83-110 [facility] ([place]) Comment on above: Performed By: #### A DIFF, GFR, CBC, CMP, FE, ANEU #### [place] [address] Potassium [Moles/Vol] 4.4 mmol/L Normal 3.5-5.1 [facility] ([place]) Comment on above: Performed By: #### A DIFF, GFR, CBC, CMP, FE, ANEU #### [address] [address] Sodium [Moles/Vol] 144 mmol/L Normal 136-145 [facility] ([place]) Comment on above: Performed By: #### A DIFF, GFR, CBC, CMP, FE, ANEU #### [address] [address] Total Protein 7.9 G/dL Normal 6.4-8.2 [facility] ([place]) Comment on above: Performed By: #### A DIFF, GFR, CBC, CMP, FE, ANEU #### [address] [address] Urea nitrogen [Mass/Vol] 17 mg/dL Normal 7-18 [facility] ([place]) Comment on above: Performed By: #### A DIFF, GFR, CBC, CMP, FE, ANEU #### [address] [address] FEon 09-24-2023 Iron [Mass/Vol] 57 ug/dL Low 65-175 [facility] ([place]) Comment on above: Performed By: #### A DIFF, GFR, CBC, CMP, FE, ANEU #### [address] [address] PBNPon 09-24-2023 Natriuretic peptide B (Bld) [Mass/Vol] 110 pg/mL Normal 0-450 [facility] ([place]) Comment on above: Result Comment: NT-p roBNP results of less than 300 pg/mL effectively rules out acute congestive heart failure with 99% negative predictive value. Performed By: #### A VIRIDIANA, CBC, FE, GFR, PBNP, CMP, ADIFF #### [address] [address] LABORATORYOrdered By: Lorena Potts on 08-22-2023 Hemoglobin.gastrointes tinal Ql (Stl) Negative (08/22/23 7:15 AM) Invalid Interpretation Code AO Rapid Testing SS OCC (LAB)on 08-22-2023 Occult Blood Fecal Negative Normal Negative [facility] ([place]) Comment on above: Performed By: #### A DIFF, GFR, CBC, CMP, FE, ANEU #### [address] [address] .Auto Diffon 07-13-2023 Basophil, Absolute 0.1 10 3/mcL Normal 0.0-0.2 [facility] ([place]) Comment on above: Performed By: #### A DIFF, GFR, CBC, CMP, FE, ANEU #### [address] [address] Basophils/100 WBC (Bld) 1.0 % Normal 0.0-2.5 [facility] ([place]) Comment on above: Performed By: #### A DIFF, GFR, CBC, CMP, FE, ANEU #### [address] [address] Eosinophil, Absolute 0.6 10 3/mcL High 0.0-0.4 [facility] [place] Comment on above: Performed By: #### A DIFF, GFR, CBC, CMP, FE, ANEU #### [address] [address] Eosinophils/100 WBC (Bld) 6.1 % Normal 0.0-7.0 [facility] ([place]) Comment on above: Performed By: #### A DIFF, GFR, CBC, CMP, FE, ANEU #### [address] [address] Lymphocyte, Absolute 1.8 10 3/mcL Normal 0.8-3.9 [facility] [place] Comment on above: Performed By: #### A DIFF, GFR, CBC, CMP, FE, ANEU #### [address] [address] Lymphocytes/100 WBC (Bld) 18.2 % Normal 10.0-50.0 [facility] ([place]) Comment on above: Performed By: #### A DIFF, GFR, CBC, CMP, FE, ANEU #### [address] [address] Monocyte, Absolute 1.0 10 3/mcL Normal 0.2-1.0 [facility] ([place]) Comment on above: Performed By: #### A DIFF, GFR, CBC, CMP, FE, ANEU #### [address] [address] Monocytes/100 WBC (Bld) 9.8 % Normal 1.7-13.0 [facility] ([place]) Comment on above: Performed By: #### A DIFF, GFR, CBC, CMP, FE, ANEU #### [address] [address] Neutrophils/100 WBC (Bld) 64.9 % Normal 37.0-80.0 [facility] ([place]) Comment on above: Performed By: #### A DIFF, GFR, CBC, CMP, FE, ANEU #### [address] [address] .NEUABSon 07-13-2023 Neutrophil, Absolute 6.6 10 3/mcL High 2.9-6.2 [facility] [place] Comment on above: Performed By: #### A DIFF, GFR, CBC, CMP, FE, ANEU #### [address] [address] CBCon 07-13-2023 Erythrocyte distribution width (RBC) [Ratio] 14.3 % Normal 11.5-14.5 [facility] ([place]) Comment on above: Performed By: #### A DIFF, GFR, CBC, CMP, FE, ANEU #### [address] [address] Hematocrit (Bld) [Volume fraction] 35.5 % Low 42.0-52.0 [facility] ([place]) Comment on above: Performed By: #### A DIFF, GFR, CBC, CMP, FE, ANEU #### [address] [address] Hgb 11.6 G/dL Low 14.0-18.0 [facility] ([place]) Comment on above: Performed By: #### A DIFF, GFR, CBC, CMP, FE, ANEU #### [address] [address] MCH (RBC) [Entitic mass] 24.9 pg Low 27.0-31.2 [facility] ([place]) Comment on above: Performed By: #### A DIFF, GFR, CBC, CMP, FE, ANEU #### [address] [address] MCHC 32.6 G/dL Normal 31.8-35.4 [facility] ([place]) Comment on above: Performed By: #### A DIFF, GFR, CBC, CMP, FE, ANEU #### [address] [address] MCV (RBC) [Entitic vol] 76.4 fL Low 80.0-94.0 [facility] ([place]) Comment on above: Performed By: #### A DIFF, GFR, CBC, CMP, FE, ANEU #### [address] [address] Platelet 470 10 3/mcL High 130-400 [facility] ([place]) Comment on above: Performed By: #### A DIFF, GFR, CBC, CMP, FE, ANEU #### [address] [address] Platelet mean volume (Bld) [Entitic vol] 6.9 fL Low 7.4-10.4 [facility] ([place]) Comment on above: Performed By: #### A DIFF, GFR, CBC, CMP, FE, ANEU #### [address] [address] RBC 4.64 10 6/mcL Normal 4.04-6.13 [facility] ([place]) Comment on above: Performed By: #### A DIFF, GFR, CBC, CMP, FE, ANEU #### [address] [address] WBC 10.1 10 3/mcL Normal 4.6-10.8 [facility] ([place]) Comment on above: Performed By: #### A DIFF, GFR, CBC, CMP, FE, ANEU #### [address] [address] Melissa 07-13-2023 Ferritin [Mass/Vol] 428.0 ng/mL High 26.0-388.0 [facility] ([place]) Comment on above: Performed By: #### A DIFF, GFR, CBC, CMP, FE, ANEU #### [address] [address] FESon 07-13-2023 Iron [Mass/Vol] 35 ug/dL Low 65-175 [facility] ([place]) Comment on above: Performed By: #### A DIFF, GFR, CBC, CMP, FE, ANEU #### [address] [address] Iron Sat 19 % Normal [facility] ([place]) Comment on above: Performed By: #### A DIFF, GFR, CBC, CMP, FE, ANEU #### [address] [address] TIBC 181 mcg/dL Low 250-450 [facility] ([place]) Comment on above: Performed By: #### A DIFF, GFR, CBC, CMP, FE, ANEU #### [address] [address] LIPIDon 07-13-2023 Cholesterol [Mass/Vol] 101 mg/dL Normal 0-200 [facility] [place]) Comment on above: Result Comment: Chol esterol Reference Interval: Less than 200 Desirable 200-239 Borderline high risk 240 and above High risk Performed By: #### A DIFF, GFR, CBC, CMP, FE, ANEU #### [address] [address] Cholesterol in HDL [Mass/Vol] 27 mg/dL Low 40-60 [facility] ([place]) Comment on above: Performed By: #### A DIFF, GFR, CBC, CMP, FE, ANEU #### [address] [address] Cholesterol in LDL [Mass/Vol] 56 mg/dL Normal 0-130 [facility] ([place]) Comment on above: Performed By: #### A DIFF, GFR, CBC, CMP, FE, ANEU #### [place] [id number] [place], [place] [address] Triglyceride [Mass/Vol] 89 mg/dL Normal 0-150 [facility] ([place]) Comment on above: Result Comment: Trig lyceride Reference Interval: Less than 150 Normal 150-199 Borderline high risk 200-499 High risk 500 or higher Very high risk Performed By: #### A DIFF, GFR, CBC, CMP, FE, ANEU #### [place] [id number] [place], [place] [address] No Panel InformationOrdered By: RIVKA Dockery on 06-17-2023 Prostate Specific Antigen Screen 0.68 ng/mL 0.00-4.00 [facility] Comment on above: This test was perfor med using the TPSA assay method for [employer] chemistry system. Values obtained with differentassay methods cannot be used interchangably.When changing PSA assays in the course of monitoring apatient, additional sequential testing should be carriedout to confirm baseline values. .GFRon 05-23-2023 GFR 90 ml/min/1.73sqm Normal [facility] ([place]) Comment on above: Result Comment: GFR Population mean for , Non- Americans Ages 20-29 = 116 mL/min/1.73 sq.m. Ages 30-39 = 107 mL/min/1.73 sq.m. Ages 40-49 = 99 mL/min/1.73 sq.m. Ages 50-59 = 93 mL/min/1.73 sq.m. Ages 60-69 = 85 mL/min/1.73 sq.m. Ages 70+ = 75 mL/min/1.73 sq.m. Chronic Kidney Disease: Less than 60 mL/min/1.73 square meters End Stage Renal Disease: Less than 15 mL/min/1.73 square meters Performed By: #### A DIFF, GFR, CBC, CMP, FE, ANEU #### [place] [id number] [place], [place] [address] GFR Non- 75 ml/min/1.73sqm Normal [facility] ([place]) Comment on above: Result Comment: GFR Population mean for , Non- Americans Ages 20-29 = 116 mL/min/1.73 sq.m. Ages 30-39 = 107 mL/min/1.73 sq.m. Ages 40-49 = 99 mL/min/1.73 sq.m. Ages 50-59 = 93 mL/min/1.73 sq.m. Ages 60-69 = 85 mL/min/1.73 sq.m. Ages 70+ = 75 mL/min/1.73 sq.m. Chronic Kidney Disease: Less than 60 mL/min/1.73 square meters End Stage Renal Disease: Less than 15 mL/min/1.73 square meters Performed By: #### A DIFF, GFR, CBC, CMP, FE, ANEU #### [address] [address] .Manual Diffon 05-23-2023 Cells Counted 100 Normal [facility]) Comment on above: Performed By: #### A DIFF, GFR, CBC, CMP, FE, ANEU #### [address] [address] Atypical Lymphs 2.0 % Normal 0.0-5.0 [facility] ([place]) Comment on above: Performed By: #### A DIFF, GFR, CBC, CMP, FE, ANEU #### [address] [address] Basophil %, Manual 0.0 % Normal 0.0-2.5 [facility] ([place]) Comment on above: Performed By: #### A DIFF, GFR, CBC, CMP, FE, ANEU #### [address] [address] Basophil, Abs Manual 0.0 10 3/mcL Normal 0.0-0.2 [facility] [place] Comment on above: Performed By: #### A DIFF, GFR, CBC, CMP, FE, ANEU #### [address] [address] Eosinophil %, Manual 23.0 % High 0.0-7.0 [facility] ([place]) Comment on above: Performed By: #### A DIFF, GFR, CBC, CMP, FE, ANEU #### [address] [address] Eosinophil, Abs Manual 1.9 10 3/mcL High 0.0-0.4 [facility] ([place]) Comment on above: Performed By: #### A DIFF, GFR, CBC, CMP, FE, ANEU #### [address] [address] Lymphocyte %, Manual 32.0 % Normal 10.0-50.0 [facility] ([place]) Comment on above: Performed By: #### A DIFF, GFR, CBC, CMP, FE, ANEU #### [address] [address] Lymphocyte, Abs Manual 2.6 10 3/mcL Normal 0.8-3.9 [facility] ([place]) Comment on above: Performed By: #### A DIFF, GFR, CBC, CMP, FE, ANEU #### [address] [address] Monocyte %, Manual 8.0 % Normal 1.7-13.0 [facility] ([place]) Comment on above: Performed By: #### A DIFF, GFR, CBC, CMP, FE, ANEU #### [address] [address] Monocyte, Abs Manual 0.6 10 3/mcL Normal 0.2-1.0 [facility] [place] Comment on above: Performed By: #### A DIFF, GFR, CBC, CMP, FE, ANEU #### [address] [address] Neutrophil %, Manual 35.0 % Low 37.0-80.0 [facility] ([place]) Comment on above: Performed By: #### A DIFF, GFR, CBC, CMP, FE, ANEU #### [address] [address] Neutrophil, Abs Manual 2.8 10 3/mcL Low 2.9-6.2 [facility] ([place]) Comment on above: Performed By: #### A DIFF, GFR, CBC, CMP, FE, ANEU #### [place] [address] Nucleated RBC 0.0 /100 WBC Normal [facility] ([place]) Comment on above: Performed By: #### A DIFF, GFR, CBC, CMP, FE, ANEU #### [place] [address] .Morphon 05-23-2023 Platelet Estimate Normal Normal [facility]) Comment on above: Performed By: #### A DIFF, GFR, CBC, CMP, FE, ANEU #### [place] [address] CBCon 05-23-2023 Erythrocyte distribution width (RBC) [Ratio] 14.0 % Normal 11.5-14.5 [facility] ([place]) Comment on above: Performed By: #### A DIFF, GFR, CBC, CMP, FE, ANEU #### [place] [address] Hematocrit (Bld) [Volume fraction] 38.3 % Low 42.0-52.0 [facility] ([place]) Comment on above: Performed By: #### A DIFF, GFR, CBC, CMP, FE, ANEU #### [place] [address] Hgb 12.6 G/dL Low 14.0-18.0 [facility] ([place]) Comment on above: Performed By: #### A DIFF, GFR, CBC, CMP, FE, ANEU #### [place] [address] MCH (RBC) [Entitic mass] 25.0 pg Low 27.0-31.2 [facility] ([place]) Comment on above: Performed By: #### A DIFF, GFR, CBC, CMP, FE, ANEU #### [place] [address] MCHC 32.8 G/dL Normal 31.8-35.4 [facility] ([place]) Comment on above: Performed By: #### A DIFF, GFR, CBC, CMP, FE, ANEU #### [address] [address] MCV (RBC) [Entitic vol] 76.1 fL Low 80.0-94.0 [facility] ([place]) Comment on above: Performed By: #### A DIFF, GFR, CBC, CMP, FE, ANEU #### [address] [address] Platelet 180 10 3/mcL Normal 130-400 [facility] ([place]) Comment on above: Performed By: #### A DIFF, GFR, CBC, CMP, FE, ANEU #### [address] [address] Platelet mean volume (Bld) [Entitic vol] 7.7 fL Normal 7.4-10.4 [facility] ([place]) Comment on above: Performed By: #### A DIFF, GFR, CBC, CMP, FE, ANEU #### [address] [address] RBC 5.03 10 6/mcL Normal 4.04-6.13 [facility] ([place]) Comment on above: Performed By: #### A DIFF, GFR, CBC, CMP, FE, ANEU #### [address] [address] WBC 8.1 10 3/mcL Normal 4.6-10.8 [facility] ([place]) Comment on above: Performed By: #### A DIFF, GFR, CBC, CMP, FE, ANEU #### [address] [address] CMPon 05-23-2023 Albumin Level 3.7 G/dL Normal 3.4-4.8 [facility] ([place]) Comment on above: Performed By: #### A DIFF, GFR, CBC, CMP, FE, ANEU #### [address] [address] Albumin/Globulin [Mass ratio] 0.9 {ratio} Low 1.1-2.5 [facility] ([place]) Comment on above: Performed By: #### A DIFF, GFR, CBC, CMP, FE, ANEU #### [address] [address] ALP [Catalytic activity/Vol] 88 U/L Normal 40-135 [facility] ([place]) Comment on above: Performed By: #### A DIFF, GFR, CBC, CMP, FE, ANEU #### [address] [address] ALT [Catalytic activity/Vol] 41 U/L Normal 16-63 [facility] ([place]) Comment on above: Performed By: #### A DIFF, GFR, CBC, CMP, FE, ANEU #### [address] [address] AST [Catalytic activity/Vol] 27 U/L Normal 10-40 [facility] ([place]) Comment on above: Performed By: #### A DIFF, GFR, CBC, CMP, FE, ANEU #### [address] [address] Bili Total 0.4 mg/dL Normal 0.2-1.0 [facility] ([place]) Comment on above: Result Comment: Use of this assay is not recommended for patients undergoing treatment with eltrombopag due to the potential for falsely elevated results. Performed By: #### A DIFF, GFR, CBC, CMP, FE, ANEU #### [address] [address] BUN/Creatinine Ratio 16 ratio Normal 7-27 [facility] ([place] Comment on above: Performed By: #### A DIFF, GFR, CBC, CMP, FE, ANEU #### [address] [address] Calcium [Mass/Vol] 9.0 mg/dL Normal 8.4-10.2 [facility] ([place]) Comment on above: Performed By: #### A DIFF, GFR, CBC, CMP, FE, ANEU #### [address] [address] Chloride [Moles/Vol] 104 mmol/L Normal 98-107 [facility] ([place] Comment on above: Performed By: #### A DIFF, GFR, CBC, CMP, FE, ANEU #### [address] [address] CO2 [Moles/Vol] 30 mmol/L Normal 23-31 [facility] ([place] Comment on above: Performed By: #### A DIFF, GFR, CBC, CMP, FE, ANEU #### [address] [address] Creatinine [Mass/Vol] 0.98 mg/dL Normal 0.70-1.30 [facility] ([place]) Comment on above: Performed By: #### A DIFF, GFR, CBC, CMP, FE, ANEU #### [place] [id number] Electrolyte Balance 5.0 mEq/L Normal 4.0-15.0 [facility] ([place] Comment on above: Performed By: #### A DIFF, GFR, CBC, CMP, FE, ANEU #### [place] [address] Globulin 4.3 G/dL Normal [facility] ([place]) Comment on above: Performed By: #### A DIFF, GFR, CBC, CMP, FE, ANEU #### [place] [address] Glucose [Mass/Vol] 125 mg/dL High 83-110 [facility] ([place]) Comment on above: Performed By: #### A DIFF, GFR, CBC, CMP, FE, ANEU #### [place] [id number] Potassium [Moles/Vol] 4.9 mmol/L Normal 3.5-5.1 [facility] ([place]) Comment on above: Performed By: #### A DIFF, GFR, CBC, CMP, FE, ANEU #### [place] [address] Sodium [Moles/Vol] 139 mmol/L Normal 136-145 [facility] ([place] Comment on above: Performed By: #### A DIFF, GFR, CBC, CMP, FE, ANEU #### [address] [address] Total Protein 8.0 G/dL Normal 6.4-8.2 [facility] ([place]) Comment on above: Performed By: #### A DIFF, GFR, CBC, CMP, FE, ANEU #### [place] [id number] [place], [place] [address] Urea nitrogen [Mass/Vol] 16 mg/dL Normal 7-18 [facility] ([place]) Comment on above: Performed By: #### A DIFF, GFR, CBC, CMP, FE, ANEU #### [place] [id number] [place], [place] [address] LABORATORYOrdered By: SYSTEM SYSTEM on 05-23-2023 Albumin BCP dye [Mass/Vol] 3.7 G/dL Invalid Interpretation Code 3.4 - 4.8 G/dL AO ADM SS Albumin/Globulin [Mass ratio] 0.9 {ratio} Invalid Interpretation Code 1.1 - 2.5 ratio AO ADM SS ALP [Catalytic activity/Vol] 88 U/L Invalid Interpretation Code 40 - 135 U/L AO ADM SS ALT With P-5'-P [Catalytic activity/Vol] 41 U/L Invalid Interpretation Code 16 - 63 U/L AO ADM SS AST With P-5'-P [Catalytic activity/Vol] 27 U/L Invalid Interpretation Code 10 - 40 U/L AO ADM SS Basophil %, Manual 0.0 1 Invalid Interpretation Code 0.0 - 2.5 % AO Workflow SS Basophil, Abs Manual 0.0 103/mcL Invalid Interpretation Code 0.0 - 0.2 10^3/mcL AO Workflow SS Bilirubin [Mass/Vol] 0.4 mg/dL Invalid Interpretation Code 0.2 - 1.0 mg/dL AO ADM SS Comment on above: Interpretive Data: U se of this assay is not recommended for patients undergoing treatment with eltrombopag due to the potential for falsely elevated results. Calcium [Mass/Vol] 9.0 mg/dL Invalid Interpretation Code 8.4 - 10.2 mg/dL AO ADM SS Chloride [Moles/Vol] 104 mmol/L Invalid Interpretation Code 98 - 107 mmol/L AO ADM SS CO2 [Moles/Vol] 30 mmol/L Invalid Interpretation Code 23 - 31 mmol/L AO ADM SS Creatinine [Mass/Vol] 0.98 mg/dL Invalid Interpretation Code 0.70 - 1.30 mg/dL AO ADM SS Electrolyte Balance 5.0 mEq/L Invalid Interpretation Code 4.0 - 15.0 mEq/L AO ADM SS Eosinophil %, Manual 23.0 1 Invalid Interpretation Code 0.0 - 7.0 % AO Workflow SS Eosinophils (Bld) [#/Vol] 1.9 103/mcL Invalid Interpretation Code 0.0 - 0.4 10^3/mcL AO Workflow SS Erythrocyte distribution width (RBC) [Ratio] 14.0 % Invalid Interpretation Code 11.5 - 14.5 % AO Workflow SS GFR/1.73 sq M.predicted among blacks MDRD (S/P/Bld) [Vol rate/Area] 90 ml/min/1.73sqm Invalid Interpretation Code AO Chemistry S Comment on above: Interpretive Data: GFR Population mean for , Non- Americans Ages 20-29 = 116 mL/min/1.73 sq.m. Ages 30-39 = 107 mL/min/1.73 sq.m. Ages 40-49 = 99 mL/min/1.73 sq.m. Ages 50-59 = 93 mL/min/1.73 sq.m. Ages 60-69 = 85 mL/min/1.73 sq.m. Ages 70+ = 75 mL/min/1.73 sq.m. Chronic Kidney Disease: Less than 60 mL/min/1.73 square meters End Stage Renal Disease: Less than 15 mL/min/1.73 square meters GFR/1.73 sq M.predicted among non-blacks MDRD (S/P/Bld) [Vol rate/Area] 75 ml/min/1.73sqm Invalid Interpretation Code AO Chemistry S Comment on above: Interpretive Data: GFR Population mean for , Non- Americans Ages 20-29 = 116 mL/min/1.73 sq.m. Ages 30-39 = 107 mL/min/1.73 sq.m. Ages 40-49 = 99 mL/min/1.73 sq.m. Ages 50-59 = 93 mL/min/1.73 sq.m. Ages 60-69 = 85 mL/min/1.73 sq.m. Ages 70+ = 75 mL/min/1.73 sq.m. Chronic Kidney Disease: Less than 60 mL/min/1.73 square meters End Stage Renal Disease: Less than 15 mL/min/1.73 square meters Globulin 4.3 G/dL Invalid Interpretation Code AO ADM SS Glucose [Mass/Vol] 125 mg/dL Invalid Interpretation Code 83 - 110 mg/dL AO ADM SS Hematocrit (Bld) [Volume fraction] 38.3 % Invalid Interpretation Code 42.0 - 52.0 % AO Workflow SS Hemoglobin (Bld) [Mass/Vol] 12.6 G/dL Invalid Interpretation Code 14.0 - 18.0 G/dL AO Workflow SS Lymphocyte %, Manual 32.0 1 Invalid Interpretation Code 10.0 - 50.0 % AO Workflow SS Lymphocyte, Abs Manual 2.6 103/mcL Invalid Interpretation Code 0.8 - 3.9 10^3/mcL AO Workflow SS MCH (RBC) [Entitic mass] 25.0 pg Invalid Interpretation Code 27.0 - 31.2 pg AO Workflow SS MCHC 32.8 G/dL Invalid Interpretation Code 31.8 - 35.4 G/dL AO Workflow SS MCV (RBC) [Entitic vol] 76.1 fL Invalid Interpretation Code 80.0 - 94.0 fL AO Workflow SS Monocyte %, Manual 8.0 1 Invalid Interpretation Code 1.7 - 13.0 % AO Workflow SS Monocyte, Abs Manual 0.6 103/mcL Invalid Interpretation Code 0.2 - 1.0 10^3/mcL AO Workflow SS Natriuretic peptide.B prohormone N-Terminal [Mass/Vol] 77 pg/mL Invalid Interpretation Code 0 - 450 pg/mL AO ADM SS Comment on above: Interpretive Data: N T-proBNP results of less than 300 pg/mL effectively rules out acute congestive heart failure with 99% negative predictive value. Neutrophil %, Manual 35.0 1 Invalid Interpretation Code 37.0 - 80.0 % AO Workflow SS Neutrophil, Abs Manual 2.8 103/mcL Invalid Interpretation Code 2.9 - 6.2 10^3/mcL AO Workflow SS Nucleated RBC 0.0 /100 WBC Invalid Interpretation Code AO Workflow SS Platelet Estimate Normal *NA* (05/23/23 7:35 AM) Invalid Interpretation Code AO Workflow SS Platelet mean volume (Bld) [Entitic vol] 7.7 fL Invalid Interpretation Code 7.4 - 10.4 fL AO Workflow SS Platelets (Bld) [#/Vol] 180 103/mcL Invalid Interpretation Code 130 - 400 10^3/mcL AO Workflow SS Potassium [Moles/Vol] 4.9 mmol/L Invalid Interpretation Code 3.5 - 5.1 mmol/L AO ADM SS Protein [Mass/Vol] 8.0 G/dL Invalid Interpretation Code 6.4 - 8.2 G/dL AO ADM SS RBC (Bld) [#/Vol] 5.03 106/mcL Invalid Interpretation Code 4.04 - 6.13 10^6/mcL AO Workflow SS Sodium [Moles/Vol] 139 mmol/L Invalid Interpretation Code 136 - 145 mmol/L AO ADM SS Urea nitrogen [Mass/Vol] 16 mg/dL Invalid Interpretation Code 7 - 18 mg/dL AO ADM SS Urea nitrogen/Creatinine [Mass ratio] 16 ratio Invalid Interpretation Code ratio AO ADM SS Variant lymphocytes/100 WBC (Bld) 2.0 % Invalid Interpretation Code 0.0 - 5.0 % AO Workflow SS WBC (Bld) [#/Vol] 8.1 103/mcL Invalid Interpretation Code 4.6 - 10.8 10^3/mcL AO Workflow SS LABORATORYOrdered By: Sherie Bang on 05-23-2023 Sodium [Moles/Vol] 100 mmol/L Invalid Interpretation Code AO Hematology S PBNPon 05-23-2023 Natriuretic peptide B (Bld) [Mass/Vol] 77 pg/mL Normal 0-450 [facility] Comment on above: Result Comment: NT-p roBNP results of less than 300 pg/mL effectively rules out acute congestive heart failure with 99% negative predictive value. Performed By: #### A DIFF, GFR, CBC, CMP, FE, ANEU #### [address] [address] US SOFT TISSUE Luiz 2022 US SOFT TISSUE MASS ORIGINAL EXAMINATION: SOFT TISSUE ULTRASOUND 3 7:47 am TECHNIQUE: Ultrasound of the soft tissues of the right anterior lower leg COMPARISON: None HISTORY: ORDERING SYSTEM PROVIDED HISTORY: Reason for Exam: right leg cellulitis with ?abscess, history of trauma FINDINGS: Scanning of the palpable abnormality in the right anteromedial lower leg shows a well-circumscribed ovoid fluid collection in the deep subcutaneous space that is 4.2 x 1.4 x 3.8 cm with no blood flow. There are a few septations and low-level internal echoes within this collection which has a moderately thick wall in some areas. IMPRESSION: The palpable lump is a complex fluid collection as described. With a history of trauma, possibilities include a liquified hematoma, Tylor [place] lesion or infected fluid/abscess. Interpreted by: Enoc Sumner MD Preliminary Report By: Enoc Sumner MD Electronically signed By Enoc Sumner MD Dictated Date: 05/14/2023 9:51:23 PM Prelim Date: 05/14/2023 9:53:29 PM Sign Date: 05/14/2023 9:53:29 PM Ordering Provider: YESSY Marrero [facility] ([place]) LABORATORYOrdered By: Lorena Potts on 01-04-2023 Albumin DL <= 20 mg/L (U) [Mass/Vol] 38951 mcg/dL Invalid Interpretation Code AO ADM SS Albumin/Creatinine DL <= 20 mg/L (U) [Mass ratio] 111 mcg/mg Invalid Interpretation Code 0 - 30 mcg/mg AO ADM SS Creatinine (U) [Mass/Vol] 154.7 mg/dL Invalid Interpretation Code 39.0 - 259.0 mg/dL AO ADM SS LABORATORYOrdered By: SYSTEM SYSTEM on 12-18-2022 Basophils (Bld) [#/Vol] 0.1 103/mcL Invalid Interpretation Code 0.0 - 0.3 10^3/mcL AH Workflow SS Basophils/100 WBC (Bld) 1.0 % Invalid Interpretation Code 0.0 - 2.5 % Workflow SS Calcium [Mass/Vol] 9.6 mg/dL Invalid Interpretation Code 8.7 - 10.4 mg/dL AH ADM SS Chloride [Moles/Vol] 104 mmol/L Invalid Interpretation Code 98 - 110 mEq/L AH ADM SS CO2 [Moles/Vol] 28 mmol/L Invalid Interpretation Code 22 - 32 mEq/L AH ADM SS Creatinine [Mass/Vol] 0.75 mg/dL Invalid Interpretation Code 0.60 - 1.40 mg/dL AH ADM SS Electrolyte Balance 8.0 mEq/L Invalid Interpretation Code 4.0 - 15.0 mEq/L AH ADM SS Eosinophils (Bld) [#/Vol] 0.4 103/mcL Invalid Interpretation Code 0.0 - 0.7 10^3/mcL AH Workflow SS Eosinophils/100 WBC (Bld) 5.5 % Invalid Interpretation Code 0.0 - 6.0 % AH Workflow SS Erythrocyte distribution width (RBC) [Ratio] 14.1 % Invalid Interpretation Code 11.5 - 15.5 % AH Workflow SS GFR/1.73 sq M.predicted among blacks MDRD (S/P/Bld) [Vol rate/Area] ml/min/1.73sqm Invalid Interpretation Code Chemistry S GFR/1.73 sq M.predicted among non-blacks MDRD (S/P/Bld) [Vol rate/Area] ml/min/1.73sqm Invalid Interpretation Code Chemistry S Glucose [Mass/Vol] 131 mg/dL Invalid Interpretation Code 82 - 115 mg/dL ADM SS Hematocrit (Bld) [Volume fraction] 41.2 % Invalid Interpretation Code 40.0 - 52.0 % Workflow SS Hemoglobin (Bld) [Mass/Vol] 13.5 G/dL Invalid Interpretation Code 13.0 - 17.5 G/dL Workflow SS Lymphocytes (Bld) [#/Vol] 1.5 103/mcL Invalid Interpretation Code 0.9 - 4.3 10^3/mcL AH Workflow SS Lymphocytes/100 WBC (Bld) 21.6 % Invalid Interpretation Code 20.0 - 40.0 % Workflow SS MCH (RBC) [Entitic mass] 25.0 pg Invalid Interpretation Code 27.0 - 33.0 pg AH Workflow SS MCHC 32.8 G/dL Invalid Interpretation Code 32.0 - 36.0 G/dL AH Workflow SS MCV (RBC) [Entitic vol] 76.2 fL Invalid Interpretation Code 81.0 - 100.0 fL Workflow SS Monocytes (Bld) [#/Vol] 0.8 103/mcL Invalid Interpretation Code 0.1 - 1.4 10^3/mcL AH Workflow SS Monocytes/100 WBC (Bld) 11.4 % Invalid Interpretation Code 2.0 - 13.0 % Workflow SS Neutrophils (Bld) [#/Vol] 4.2 103/mcL Invalid Interpretation Code 2.3 - 8.1 10^3/mcL AH Workflow SS Neutrophils/100 WBC (Bld) 60.5 % Invalid Interpretation Code 50.0 - 75.0 % Workflow SS Platelet mean volume (Bld) [Entitic vol] 7.7 fL Invalid Interpretation Code 6.4 - 10.5 fL AH Workflow SS Platelets (Bld) [#/Vol] 216 103/mcL Invalid Interpretation Code 150 - 450 10^3/mcL AH Workflow SS Potassium [Moles/Vol] 4.2 mmol/L Invalid Interpretation Code 3.5 - 5.0 mEq/L AH ADM SS RBC (Bld) [#/Vol] 5.41 106/mcL Invalid Interpretation Code 4.50 - 6.00 10^6/mcL AH Workflow SS Sodium [Moles/Vol] 140 mmol/L Invalid Interpretation Code 136 - 145 mEq/L AH ADM SS Urea nitrogen [Mass/Vol] 15.0 mg/dL Invalid Interpretation Code 8.0 - 22.0 mg/dL AH ADM SS Urea nitrogen/Creatinine [Mass ratio] 20.0 ratio Invalid Interpretation Code 10.0 - 22.0 ratio AH ADM SS WBC (Bld) [#/Vol] 7.0 103/mcL Invalid Interpretation Code 4.5 - 10.8 10^3/mcL Workflow SS LABORATORYOrdered By: Dyana Vincent on 12-18-2022 INR Coag (PPP) [Relative time] 1.4 {INR} Invalid Interpretation Code AH Auto Coag SS PT Coag (PPP) [Time] 16.6 s Invalid Interpretation Code 9.0 - 14.9 seconds AH Auto Coag SS LABORATORYOrdered By: Batsheva Quintana on 08-13-2022 Glucose [Mass/Vol] 133 mg/dL Invalid Interpretation Code 82 - 115 mg/dL [facility] LABORATORYOrdered By: Sherie Bang on 07-07-2022 Albumin BCP dye [Mass/Vol] 3.6 G/dL Invalid Interpretation Code 3.4 - 4.8 G/dL AO ADM SS Albumin/Globulin [Mass ratio] 0.9 {ratio} Invalid Interpretation Code 1.1 - 2.5 ratio AO ADM SS ALP [Catalytic activity/Vol] 89 U/L Invalid Interpretation Code 40 - 135 U/L AO ADM SS ALT With P-5'-P [Catalytic activity/Vol] 26 U/L Invalid Interpretation Code 16 - 63 U/L AO ADM SS AST With P-5'-P [Catalytic activity/Vol] 17 U/L Invalid Interpretation Code 10 - 40 U/L AO ADM SS Bilirubin [Mass/Vol] 0.5 mg/dL Invalid Interpretation Code 0.2 - 1.0 mg/dL AO ADM SS Calcium [Mass/Vol] 8.4 mg/dL Invalid Interpretation Code 8.4 - 10.2 mg/dL AO ADM SS Chloride [Moles/Vol] 106 mmol/L Invalid Interpretation Code 98 - 107 mmol/L AO ADM SS Cholesterol [Mass/Vol] 130 mg/dL Invalid Interpretation Code 0 - 200 mg/dL AO ADM SS Cholesterol in HDL [Mass/Vol] 47 mg/dL Invalid Interpretation Code 40 - 60 mg/dL AO ADM SS Cholesterol in LDL [Mass/Vol] 62 mg/dL Invalid Interpretation Code 0 - 130 mg/dL AO ADM SS CO2 [Moles/Vol] 29 mmol/L Invalid Interpretation Code 23 - 31 mmol/L AO ADM SS Creatinine [Mass/Vol] 0.95 mg/dL Invalid Interpretation Code 0.70 - 1.30 mg/dL AO ADM SS Electrolyte Balance 8.0 mEq/L Invalid Interpretation Code 4.0 - 15.0 mEq/L AO ADM SS Globulin 4.1 G/dL Invalid Interpretation Code AO ADM SS Glucose [Mass/Vol] 150 mg/dL Invalid Interpretation Code 83 - 110 mg/dL AO ADM SS HbA1c (Bld) [Mass fraction] 6.9 % Invalid Interpretation Code 4.3 - 6.4 % AO ADM SS Potassium [Moles/Vol] 4.8 mmol/L Invalid Interpretation Code 3.5 - 5.1 mmol/L AO ADM SS Protein [Mass/Vol] 7.7 G/dL Invalid Interpretation Code 6.4 - 8.2 G/dL AO ADM SS Sodium [Moles/Vol] 143 mmol/L Invalid Interpretation Code 136 - 145 mmol/L AO ADM SS Triglyceride [Mass/Vol] 107 mg/dL Invalid Interpretation Code 0 - 150 mg/dL AO ADM SS Urea nitrogen [Mass/Vol] 14 mg/dL Invalid Interpretation Code 7 - 18 mg/dL AO ADM SS Urea nitrogen/Creatinine [Mass ratio] 15 ratio Invalid Interpretation Code 7 - 27 ratio AO ADM SS LABORATORYOrdered By: SYSTEM SYSTEM on 07-07-2022 GFR 94 ml/min/1.73sqm Invalid Interpretation Code AO Chemistry S GFR Non- 78 ml/min/1.73sqm Invalid Interpretation Code AO Chemistry S LABORATORYOrdered By: Andres Garces on 01-08-2022 Albumin BCP dye [Mass/Vol] 3.7 G/dL Invalid Interpretation Code 3.4 - 4.8 G/dL AO ADM SS Albumin/Globulin [Mass ratio] 0.9 {ratio} Invalid Interpretation Code 1.1 - 2.5 ratio AO ADM SS ALP [Catalytic activity/Vol] 99 U/L Invalid Interpretation Code 40 - 135 U/L AO ADM SS ALT With P-5'-P [Catalytic activity/Vol] 40 U/L Invalid Interpretation Code 16 - 63 U/L AO ADM SS AST With P-5'-P [Catalytic activity/Vol] 23 U/L Invalid Interpretation Code 10 - 40 U/L AO ADM SS Bilirubin [Mass/Vol] 0.5 mg/dL Invalid Interpretation Code 0.2 - 1.0 mg/dL AO ADM SS Calcium [Mass/Vol] 8.7 mg/dL Invalid Interpretation Code 8.4 - 10.2 mg/dL AO ADM SS Chloride [Moles/Vol] 104 mmol/L Invalid Interpretation Code 98 - 107 mmol/L AO ADM SS Cholesterol [Mass/Vol] 156 mg/dL Invalid Interpretation Code 0 - 200 mg/dL AO ADM SS Cholesterol in HDL [Mass/Vol] 57 mg/dL Invalid Interpretation Code 40 - 60 mg/dL AO ADM SS Cholesterol in LDL [Mass/Vol] 75 mg/dL Invalid Interpretation Code 0 - 130 mg/dL AO ADM SS CO2 [Moles/Vol] 30 mmol/L Invalid Interpretation Code 23 - 31 mmol/L AO ADM SS Creatinine [Mass/Vol] 0.85 mg/dL Invalid Interpretation Code 0.70 - 1.30 mg/dL AO ADM SS Electrolyte Balance 9.0 mEq/L Invalid Interpretation Code 4.0 - 15.0 mEq/L AO ADM SS Globulin 4.1 G/dL Invalid Interpretation Code AO ADM SS Glucose [Mass/Vol] 124 mg/dL Invalid Interpretation Code 83 - 110 mg/dL AO ADM SS Potassium [Moles/Vol] 4.0 mmol/L Invalid Interpretation Code 3.5 - 5.1 mmol/L AO ADM SS Protein [Mass/Vol] 7.8 G/dL Invalid Interpretation Code 6.4 - 8.2 G/dL AO ADM SS Sodium [Moles/Vol] 143 mmol/L Invalid Interpretation Code 136 - 145 mmol/L AO ADM SS Triglyceride [Mass/Vol] 120 mg/dL Invalid Interpretation Code 0 - 150 mg/dL AO ADM SS Urea nitrogen [Mass/Vol] 12 mg/dL Invalid Interpretation Code 7 - 18 mg/dL AO ADM SS Urea nitrogen/Creatinine [Mass ratio] 14 ratio Invalid Interpretation Code 7 - 27 ratio AO ADM SS LABORATORYOrdered By: SYSTEM SYSTEM on 01-08-2022 GFR 107 ml/min/1.73sqm Invalid Interpretation Code AO Chemistry S GFR Non- 88 ml/min/1.73sqm Invalid Interpretation Code AO Chemistry S Vital Signs Date Time Vital Sign Value Performing Clinician Faci lity 12-18-2022 16:06-0500 Diastolic Blood Pressure Non-Invasive 91 1 FERNIE FIGUEROA MD [address] [place] [id number] 12-18-2022 16:06-0500 Heart rate 81 /min FERNIE FIGUEROA MD [address] [place] [id number] 12-18-2022 16:06-0500 Respiratory rate 18 /min FERNIE FIGUEROA MD [address] [place] [id number] 12-18-2022 16:06-0500 Systolic Blood Pressure Non-Invasive 128 1 FERNIE FIGUEROA MD [address] [place] [id number] 12-18-2022 15:53-0500 Diastolic Blood Pressure Non-Invasive 71 1 FERNIE FIGUEROA MD [address] [place] [id number] 12-18-2022 15:53-0500 Heart rate 86 /min FERNIE FIGUEROA MD [address] [place] [id number] 12-18-2022 15:53-0500 Respiratory rate 18 /min FERNIE FIGUEROA MD [address] [place] [id number] 12-18-2022 15:53-0500 Systolic Blood Pressure Non-Invasive 143 1 FERNIE FIGUEROA MD [address] [place] [id number] 12-18-2022 15:48-0500 Body temperature 97.16 [degF] FERNIE FIGUEROA MD [address] [place] [id number] 12-18-2022 15:48-0500 Diastolic Blood Pressure Non-Invasive 82 1 FERNIE FIGUEROA MD [address] [place] [id number] 12-18-2022 15:48-0500 Heart rate 84 /min FERNIE FIGUEROA MD [address] [place] [id number] 12-18-2022 15:48-0500 Respiratory rate 18 /min FERNIE FIGUEROA MD [address] [place] [id number] 12-18-2022 15:48-0500 Systolic Blood Pressure Non-Invasive 115 1 FERNIE FIGUEROA MD [address] [place] [id number] 12-18-2022 12:31-0500 Body height 172.7 cm FERNIE FIGUEROA MD [address] [place] [id number] 12-18-2022 12:31-0500 Body temperature 98.06 [degF] FERNIE FIGUEROA MD [address] [place] [id number] 12-18-2022 12:31-0500 Body weight 88.2 kg FERNIE FIGUEROA MD [address] [place] [id number] 12-18-2022 12:31-0500 Body weight 29.57 kg/m2 FERNIE FIGUEROA MD [address] [place] [id number] 12-18-2022 12:31-0500 Heart rate 107 /min FERNIE FIGUEROA MD [address] [place] [id number] 08-13-2022 12:11-0400 Diastolic Blood Pressure NBP 65 1 AMARILYS VERDUZCO MD [facility] 08-13-2022 12:11-0400 Heart rate 73 /min AMARILYS VERDUZCO MD [facility] 08-13-2022 12:11-0400 Respiratory rate 21 /min AMARILYS VERDUZCO MD [facility] 08-13-2022 12:11-0400 Systolic Blood Pressure NBP 126 1 AMARILYS VERDUZCO MD [facility] 08-13-2022 11:58-0400 Diastolic Blood Pressure NBP 85 1 AMARILYS VERDUZCO MD [facility] 10-17-2022 11:58-0400 Heart rate 75 /min AMARILYS VERDUZCO MD [facility] 08-13-2022 11:58-0400 Respiratory rate 14 /min AMARILYS VERDUZCO MD [facility] 08-13-2022 11:58-0400 Systolic Blood Pressure NBP 141 1 AMARILYS VERDUZCO MD [facility] 08-13-2022 11:50-0400 Diastolic Blood Pressure NBP 77 1 AMARILYS VERDUZCO MD [facility] 08-13-2022 11:50-0400 Heart rate 65 /min AMARILYS VERDUZCO MD [facility] 08-13-2022 11:50-0400 Respiratory rate 17 /min AMARILYS VERDUZCO MD [facility] 08-13-2022 11:50-0400 Systolic Blood Pressure NBP 143 1 AMARILYS VERDUZCO MD [facility] 08-13-2022 10:32-0400 Body height 172.7 cm AMARILYS VERDUZCO MD [facility] 08-13-2022 10:32-0400 Body weight 89.8 kg AMARILYS VERDUZCO MD [facility] 08-13-2022 10:27-0400 Body height 172.7 cm AMARILYS VERDUZCO MD [facility] 08-13-2022 10:27-0400 Body temperature 96.98 [degF] AMARILYS VERDUZCO MD [facility] 08-13-2022 10:27-0400 Body weight 89.8 kg AMARILYS VERDUZCO MD [facility] 08-13-2022 10:0 Heart rate 62 /min AMARILYS VERDUZCO MD [facility] Encounters Encounter Date Encounter Type Care Provider Facility Start: 07-02-2025 ambulatory Amanda Reeves Facilderek ty:[facility] Start: 12-09-2024 End: 2024 ambulatory YESSY SANTILLAN Facility[facility] Start: 12-09-2024 End: [address] YESSY SANTILLAN DO [facility] Start: 09-12-2024 End: 09-12-2024 ambulatory YESSY SANTILLAN Facility[facility] Start: 09-12-2024 End: 09-12-[address] YESSY SANTILLAN DO [facility] Start: 09-10-2024 End: 09-14-2024 ambulatory YESSY SANTILLAN Facility[facility] Start: 09-10-2024 End: 09-14-[address] YESSY SANTILLAN DO [facility] Start: 07-02-2024 End: 07-02-2024 ambulatory Yessy Santillan Facility:[facility] Start: 04-15-2024 End: 04-15-[address] YESSY SANTILLAN DO Facility:[facility] Start: 04-15-2024 End: 04-15-[address] YESSY SANTILLAN DO [facility] Start: 01-22-2024 End: 01-22-[address] YESSY SANTILLAN DO Facility:[facility] Start: 01-22-2024 End: 01-22-[address] YESSY SANTILLAN DO [facility] Start: 01-17-2024 End: 01-17-[address] YESSY SANTILLAN DO Facility:[facility] Start: 01-17-2024 End: 01-17-[address] YESSY SANTILLAN DO [facility] Start: 11-26-2023 End: 11-26-[address] YESSY SANTILLAN DO Facility:[facility] Start: 11-26-2023 End: 11-26-[address] PASTORA BARTLETT MD [facility] Start: 09-24-2023 End: 09-24-[address] YESSY SANTILLAN DO Facility:[facility] Start: 08-22-2023 End: 08-26-[address] YESSY SANTILLAN DO Facility:[facility] Start: 08-22-2023 End: 08-26-[address] YESSY SANTILLAN DO [facility] Start: 07-13-2023 End: 07-13-[address] YESSY SANTILLAN DO Facility:[facility] Start: 06-17-2023 End: 06-17-2023 ambulatory [facility] Work Phone: Start: 06-17-2023 End: 06-17-2023 Patient encounter procedure [facility] Work Phone: Start: 05-23-2023 End: 05-23-[address] YESSY SANTILLAN DO Facility:[facility] Start: 05-23-2023 End: 05-23-[address] YESSY SANTILLAN DO [facility] Start: 05-09-2023 End: 05-09-[address] YESSY SANTILLAN DO Facility:[facility] Start: 05-09-2023 End: 05-09-[address] YESSY SANTILLAN DO [facility] Start: 01-04-2023 End: 01-08-[address] YESSY SANTILLAN DO [facility] Start: 12-18-2022 End: 12-18-2022 SAME DAY STAY FERNIE FIGUEROA MD [facility] Start: 09-27-2022 End: 09-27-[address] PASTORA BARTLETT MD [facility] Start: 08-13-2022 End: 08-13-2022 Minor Procedure AMARILYS VERDUZCO MD [facility] Start: 07-07-2022 End: 07-07-[address] YESSY SANTILLAN DO [facility] Start: 01-08-2022 End: 01-08-[address] YESSY SANTILLAN DO [facility] Start: 11-15-2021 End: 11-15-[address] PASTORA BARTLETT MD [facility] Procedures Date Procedure Procedure Detail Performing Clinician Start: 12-18-[address] PASTORA BARTLETT MD Start: 11-15-[address] CHRISTO SANTILLAN DO Comment on above: EF 60-65% Start: 05-27-2020 ECG: presence findin gs (finding) DR PASTORA BARTLETT MD Comment on above: NSR 51bpm Start: 12-31-[address] PASTORA BARTLETT MD Comment on above: Direct-current cardi oversion Start: 10-23-[address] BRII BARTLETT MD Comment on above: 1. Left ventricle: T he cavity size is normal. Wall thickness is normal. Systolic function is normal. The estimated ejection fraction is 60-65%. Wall motion is normal; there are no regional wall motion abnormalities. 2. Aortic valve: The valve is functionally bicuspid. The leaflets are moderately thickened and severely calcified. There is mild stenosis. There is mild regurgitation. 3. Left atrium: The atrium is mildly dilated. 4. Right ventricle: The RV systolic pressure by Doppler is 28 mm Hg. 5. Right atrium: The atrium is dilated. The estimated right atrial pressure is 3 mm Hg. Start: 10-23-2018 Stress test treadmil l (physical object) DR PASTORA BARTLETT MD Comment on above: 1. Positive exercise EKG stress test for ischemia. 2. Average functional capacity. 3. No exercise-induced chest pain. 4. Occasional PVCs at rest noted, which reduced in frequency with exercise. 5. Normal blood pressure and heart rate response to exercise noted. 1. No evidence of inducible ischemia or prior myocardial infarction 2. Normal wall motion and systolic function, LVEF 62% Start: 02-11-[address] PASTORA SHAY MD Comment on above: normal Cardioversion DR PASTORA PHILLIP MD Electrocardiographic monitor and recorder, device (physical object) DR PASTORA BARTLETT MD Comment on above: 24 HOUR -1. Sinus rh ythm 65 to 135, average 88 beats per minute. 2. Frequent ventricular ectopic complexes representing 10% of all QRS complexes. Most in isolation with no ventricular tachycardia noted. 3. Rare supraventricular ectopic complexes, most in isolation with 2 couplets. 4. No long pauses or signs of high grade AV block Immunizations Immunization Date Immunization Notes Care Provider Fa cilibro 08-05-2024 influenza, high dose seasonal, preservative-free; Translations: [Fluad PF Prefilled Syringe ] DR YESSY SANTILLAN DO [facility] 09-27-2023 SARS-CoV-2 (COVID-19 ) [id number] DR YESSY SANTILLAN DO [facility] 08-02-2023 influenza, high dose seasonal, preservative-free; Translations: [Fluad Quadrivalent PF ] DR YESSY SANTILLAN DO [facility] 01-04-2023 Pneumococcal conjuga te PCV20, polysaccharide [id number] conjugate, adjuvant, PF; Translations: [Prevnar 20] DR YESSY SANTILLAN DO [facility] Comment on above: Result Comment: Admi nistered Prevnar 20 0.5mL IM in RD. pt tolerated well with no adverse effects noted. [facility] 07-30-2022 influenza, high dose seasonal, preservative-free AMARILYS VERDUZCO MD [facility] 04-06-2022 SARS-CoV-2 mRNA (ivnakuriqly-semm-whdjr se) vaccine DR YESSY SANTILLAN DO [facility] 08-12-2021 SARS-CoV-2 mRNA (tozinameran) vaccine DR YESSY SANTILLAN DO [facility] 07-22-2021 influenza virus vaccine, unspecified formulation DR YESSY SANTILLAN DO [facility] 06-29-2021 tetanus toxoid, redu nesha diphtheria toxoid, and acellular pertussis vaccine, adsorbed; Translations: [Boostrix (Tdap)] DR PASTORA BARTLETT MD [facility] 01-04-2021 SARS-CoV-2 mRNA (tozinameran) vaccine DR PASTORA BARTLETT MD [facility] Comment on above: Result Comment: 2020: [id number] 2020 SARS-CoV-2 mRNA (tozinameran) vaccine DR PASTORA BARTLETT MD [facility] Comment on above: Result Comment: 2020: [id number] 06-15-2020 influenza virus vaccine, unspecified formulation DR PASTORA BARTLETT MD [facility] 07-29-2019 influenza virus vaccine, unspecified formulation DR PASTORA BARTLETT MD [facility] 07-28-2019 influenza virus vaccine, unspecified formulation DR YESSY SANTILLAN DO [facility] 08-04-2018 influenza virus vaccine, unspecified formulation DR PASTORA BARTLETT MD [facility] 06-26-2018 pneumococcal conjuga te vaccine, [address] PASTORA BARTLETT MD [facility] 08-03-2016 influenza virus vaccine, unspecified formulation DR YESSY SANTILLAN DO [facility] 08-14-2014 influenza virus vaccine, unspecified formulation DR YESSY SANTILLAN DO [facility] Payers Date Payer Category Payer Unknown [id number] 2024 Self-pay [id number] 2023 Medicare [id number] 2023 Unknown [id number] 2015 Medicare [id number] 1945 Unknown [id number] Unknown [id number] 40.1.294365.3.579.2. 1945 Unknown [id number] .16.8 40.1.243585.3.579.2. 1945 Unknown [id number] .16.8 40.1.034754.3.579.2. 1945 Unknown [id number] .16.8 40.1.871020.3.579.2. 1945 Unknown [id number] .16.8 40.1.666652.3.579.2.7 1945 Unknown [id number] .16.8 40.1.482269.3.579.2. 1945 Unknown [id number] 2.16.8 40.1.350666.3.579.2.62 1945 Unknown [id number] 2.16.8 40.1.175991.3.579.2. 1945 Unknown [id number] 2.16.8 40.1.349332.3.579.2. 1945 Unknown [id number] 2.16.8 40.1.502728.3.579.2 1945 Unknown [id number] 2.16.8 40.1.131123.3.579.2.627 Unknown [facility] [id number] Unknown [id number] 2.16.8 40.1.537554.3.579.2.462 Unknown [id number] 2.16.8 40.1.111000.3.579.2.462 Social History Date Type Detail Facility Start: 06-18-2019 End: 01-05-2022 Never smoked tobacco (finding) [facility] Start: 1945 Sex Assigned At Male A [facility] Sexual Orientation [facility] Start: 09-21-2019 Sex Male (finding) [facility] Functional Status Date Assessment Result Facility 12-18-2022 Functional Status Independent [facility] 12-18-2022 Functional Status [facility] 12-18-2022 Functional Status Maintained [facility] 08-13-2022 Functional Status Precautions maintained [facility] 08-13-2022 Functional Status Maintained [facility] Mental Status Date Assessment Result Facility 12-18-2022 Mental Status Oriented x 4 [facility] 12-18-2022 Mental Status [facility] 08-13-2022 Mental Status Oriented x 4 [facility] Clinical Notes 08-13-2022 to 11-26-2023 Note Date & Type Note Facility 11-26-2023 Note Exam Date Time Procedure Performing Provider Status 11/26/23 10:45 AM Echocardiogram, Adult - CV Auth (Verified) [facility] 02-21-2023 Hospital Discharge instructions Patient Education 12/18/2022 16:27:58 Moderate Conscious Sedation, Adult, Care After Moderate Conscious Sedation, Adult, Care After These instructions provide you with information about caring for yourself after your procedure. Your health care provider may also give you more specific instructions. Your treatment has been plannedaccording to current medical practices, but problems sometimes occur. Call your health care provider if you have any problems or questions after your procedure. What can I expect after the procedure? After your procedure, it is common: To feel sleepy for several hours. To feel clumsy and have poor balance for several hours. To have poor judgment for several hours. To vomit if you eat too soon. Follow these instructions at home: For at least 24 hours after the procedure: Do not: ?Participate in activities where you could fall or become injured. ?Drive. ?Use heavy machinery. ?Drink alcohol. ?Take sleeping pills or medicines that cause drowsiness. ?Make important decisions or sign legal documents. ?Take care of children on your own. Rest. Eating and drinking Follow the diet recommended by your health care provider. If you vomit: ?Drink water, juice, or soup when you can drink without vomiting. ?Make sure you have little or no nausea before eating solid foods. General instructions Have a responsible adult stay with you until you are awake and alert. Take huhv-jnl-ypnhcfm and prescription medicines only as told by your health care provider. If you smoke, do not smoke without supervision. Keep all follow-up visits as told by your health care provider. This is important. Contact a health care provider if: You keep feeling nauseous or you keep vomiting. You feel light-headed. You develop a rash. You have a fever. Get help right away if: You have trouble breathing. This information is not intended to replace advice given to you by your health care provider. Make sure you discuss any questions you have with your health care provider. Document Released: 08/04/2014 Document Revised: 09/26/2018 Document Reviewed: 02/02/2017 [employer] Patient Education 2020 [employer]. 12/18/2022 16:27:53 3- Cardioversion (07/2018) (CUSTOM) CARDIOVERSION Discharge instructions ACTIVITY/SAFETY Please refrain from the following activities for 24 hours: Do not drive a car or operate heavy equipment. Do not consume alcohol for 24 hours. Do not return to work for 24 hours. Postpone signing any important papers or making important decisions. COMFORT Call your primary doctor if you have any redness, tenderness, warmth, discharge or swelling at yourIV site. Your chest or back may get red and/or develop a burning sensation. Apply fragrance-free Aloe Vera lotion. Take Tylenol as needed for pain. DIET When you return home, resume your regular diet unless otherwise directed. Some of the sedatives, anesthetic medications you received today may make you nauseated. If vomiting persists, call your doctor. Restart your usual medications unless otherwise instructed by your doctor. If you have any questions, please call your doctor at the number listed on your follow up instructions. Document Released: 10/14/2006 Document Revised: 09/30/2013 Document Reviewed: 10/15/2014 ExitCare Patient Information 2015 [employer]. This information is not intended to replace advicegiven to you by your health care provider. Make sure you discuss any questions you have with your health care provider. Follow Up Care 2022 14:16:16 With:FERNIE FIGUEROA MD Address: [address] [place] [address] [address] [facility] [place] [address]- [phone] When: Unknown Comments:Office will call for follow-up [facility] 02-21-2023 Note Date of Service December 18, 2022 Procedure Name Direct-current cardioversion Referring Provider Dr. Bartlett/Anuradha Alvarado APRN CNP Consent Informed consent obtained from nursing staff/anesthesia personnel. Patient has been educated about the risks, benefits, and alternatives of this procedure prior to obtaining consent. Indication Atrial flutter Location CVOR Technique This is a 77-year-old male who presents today for direct-current cardioversion. Recently evaluated by general cardiology (Anuradha Alvarado APRN CNP) on December 11, 2022 where patient was noted to be inatrial flutter. Plan of care at that time was to increase metoprolol to 25 mg daily and proceed with direct-current cardioversion. Patient presented for direct-current cardioversion in a fasting, well-hydrated state. Presenting rhythm was atrial flutter at a heart rate of 100 bpm. Plan is to proceed with direct-current cardioversion. Once a TACKING MACHINE OPERATOR administered an IV anesthetic agent and the patient was fully sedated, an anterior-posterior patch placement was utilized to deliver a synchronized biphasic waveform at 75 J which resulted in an approximately 4- second pause followed by the pentecostalism of normal sinus rhythm. The patient tolerated the procedure well and returned to cardiac same-day in stable condition. I will discuss with primary EP. Digitally Signed by BELÉN HOU on 12/18/2022 04:50 PM [id number] Summary of episode note Discharge Instructions Thank you for allowing [facility] to assist you with your healthcare needs. The following is importantdischarge information regarding your hospital visit. Your Care Team YESSY SANTILLAN DO What to do next Scheduled Follow-Up Appointments Appointment Type When With Where Contact InformationPC OV 01/04/2023 03:00 PM EST YESSY SANTILLAN DO [facility] [address] [place] [address] Follow Up Appointments Follow Up with FERNIE FIGUEROA MD When Why: Office will call for follow-up Where: [address] [place] [address] [address] [facility] [place] [address]- [phone] The Following Activity and Diet Have Been Ordered for You Discharge Activity - Ordered -- Follow the post-operative/post-procedure activity instructions provided by your physician's office., 12/18/22 16:44:00 EST Discharge Driving Restrictions - Ordered -- * Other, specify in special instructions, No driving for today, 12/18/22 16:44:00 EST Discharge Diet - Ordered -- Follow the post-operative/post-procedure diet instructions provided by your physician's office.,12/18/22 16:44:00 EST The Following Equipment Has Been Ordered for You Discharge Home Equipment Discharge Wound Care - Ordered -- Follow the post-operative/post-procedure wound care instructions provided by your physician's office., 12/18/22 16:44:00 EST Allergies NKA Medications Please ask your primary doctor or pharmacist before taking any other medication not listed, including over the counter drugs, herbal medications, vitamins and or supplements as they may interact withyour home medications. What How Much When Instructions Last Dose Unchanged amLODIPine (amLODIPine 5 mg oral tablet) 1 tab(s) by mouth Once a day Duration: 90 Days Unchanged apixaban (Eliquis 5 mg oral tablet) 1 tab(s) by mouth Two (2) times a day Unchanged atorvastatin (atorvastatin 40 mg oral tablet) 1 tab(s) by mouth Once a day Unchanged finasteride (finasteride 5 mg oral tablet) 1 tab(s) by mouth Once a day Duration: 90 Days Unchanged losartan (losartan 50 mg oral tablet) 1 tab(s) by mouth Once a day Unchanged metFORMIN (MetFORMIN (Eqv-Glucophage XR) 500 mg oral tablet, EXTENDED RELEASE) 1 tab(s) by mouth Two (2) times a day Duration: 90 Days with evening meal. Okay to subtitute glucophage 500 mg extended release if covered by insurance Unchanged metoprolol (Metoprolol Succinate ER 25 mg oral TABLET extended release) 1 tab(s) by mouth Once a day Duration: 90 Days Unchanged nitroGLYcerin (nitroglycerin 0.4 mg sublingual tablet) 1 tab(s) under the tongue Every 5 minutes DISSOLVE 1 TABLET UNDER THE TONGUE NEEDED FOR CHEST PAIN- MAY REPEAT EVERY 5 MINUTES IF NEEDED (MAX 3 DOSES.- IF NO RELIEF CALL 911) Unchanged tamsulosin (tamsulosin 0.4 mg oral capsule) 1 cap by mouth Once a day Duration: 90 Days Please take this list to your next doctor s visit. Bring all medications you take, including over the counter medications, herbals and other supplements with you to your doctor s visit. Patients and families are reminded to discard old lists and to update any records with all medication providers or retail pharmacies. Education Materials Moderate Conscious Sedation, Adult, Care After These instructions provide you with information about caring for yourself after your procedure. Your health care provider may also give you more specific instructions. Your treatment has been plannedaccording to current medical practices, but problems sometimes occur. Call your health care provider if you have any problems or questions after your procedure. What can I expect after the procedure? After your procedure, it is common: To feel sleepy for several hours. To feel clumsy and have poor balance for several hours. To have poor judgment for several hours. To vomit if you eat too soon. Follow these instructions at home: For at least 24 hours after the procedure: Do not: ? Participate in activities where you could fall or become injured. ? Drive. ? Use heavy machinery. ? Drink alcohol. ? Take sleeping pills or medicines that cause drowsiness. ? Make important decisions or sign legal documents. ? Take care of children on your own. Rest. Eating and drinking Follow the diet recommended by your health care provider. If you vomit: ? Drink water, juice, or soup when you can drink without vomiting. ? Make sure you have little or no nausea before eating solid foods. General instructions Have a responsible adult stay with you until you are awake and alert. Take pams-lio-hwlfamf and prescription medicines only as told by your health care provider. If you smoke, do not smoke without supervision. Keep all follow-up visits as told by your health care provider. This is important. Contact a health care provider if: You keep feeling nauseous or you keep vomiting. You feel light-headed. You develop a rash. You have a fever. Get help right away if: You have trouble breathing. This information is not intended to replace advice given to you by your health care provider. Make sure you discuss any questions you have with your health care provider. Document Released: 08/04/2014 Document Revised: 09/26/2018 Document Reviewed: 02/02/2017 [employer] Patient Education 2020 [employer]. CARDIOVERSION Discharge instructions ACTIVITY/SAFETY Please refrain from the following activities for 24 hours: Do not drive a car or operate heavy equipment. Do not consume alcohol for 24 hours. Do not return to work for 24 hours. Postpone signing any important papers or making important decisions. COMFORT Call your primary doctor if you have any redness, tenderness, warmth, discharge or swelling at yourIV site. Your chest or back may get red and/or develop a burning sensation. Apply fragrance-free Aloe Vera lotion. Take Tylenol as needed for pain. DIET When you return home, resume your regular diet unless otherwise directed. Some of the sedatives, anesthetic medications you received today may make you nauseated. If vomiting persists, call your doctor. Restart your usual medications unless otherwise instructed by your doctor. If you have any questions, please call your doctor at the number listed on your follow up instructions. Document Released: 10/14/2006 Document Revised: 09/30/2013 Document Reviewed: 10/15/2014 ExitCare Patient Information 2015 [employer]. This information is not intended to replace advicegiven to you by your health care provider. Make sure you discuss any questions you have with your health care provider. Additional Information VACCINATE! IT SAVES LIVES! Members of the community who have not yet received the COVID-19 vaccine and would like to receive it can visit one of [facility] vaccine clinics. There are many vaccine clinic locations within the [facility]. For locations and available times, please visit [email or web address].[place].gov/. It is important to note that some COVID mobile vaccine clinics are held outdoors and may be canceled in rainy or stormy conditions. To learn more about pediatric vaccinations (ages 5-11), we invite you to visit the [facility] webpage. https://www.[email or web address].org/pages/7893-Ccybh-Ukrvxdxzhln-Eqtjxubycq-Kiril-Bdp stions.htmlTo learn more about the COVID-19 vaccine, we invite you to visit the CDC website for a list of frequently asked questions. https://www.cdc.gov/coronavirus/2019-ncov/vaccines/faq.html [facility] Patient Portal Access Instructions: Stay connected with your healthcare team and access your personal medical information anytime with the [employer] Patient Portal.If you would like a full copy of your medical records, please contact the [facility] Medical Records Department, Saturday through Saturday between 8a.m. and 4:30p.m. Please follow the directions below to access the portal: 1.Access the email account you provided upon registration to the hospital.2.Look for an invitation email from [facility].3.Open the email and access the invitation link: Accept Invitation to [employer]4.Fill in the required jones to create your account. Sign into [email or web address] with your username and password that you created in the above steps to stay up to date. You can then view a summary of results, a summary of your visits, and the ability to download your summaries to your computer or send the information securely to a physician. Remember that your healthcare information is confidential, so carefully consider who you will allow to register on the [employer] Patient Portal for access to your information. You can also access the [employer] Patient Portal on the [employer] alexx. Simply click on Health Records under [employer] and then click on the [employer] logo. HOW TO SAFELY DISPOSE OF PRESCRIPTION MEDICATIONS Please use one of the following methods to safely dispose of your unused medications. 1.Use a drug disposal kit: the drug disposal pouch allows you to safely discard your old and unuseddrugs. Ask your nurse to give you one when you are discharged.2.Visit a local take-back location: Many local pharmacies and police departments have programs that collect old and unwanted prescriptiondrugs. Call your local pharmacy or go to http://Solidarium.Terviu/7Y5My8x to find one close to you.3.Make use of household items: Use cat litter or old coffee grounds to dispose medications if other options arenot available. Mix your drugs with these household products, seal them in an airtight container andthrow it into the garbage. Call [facility]: [phone] to be sure your drugs can be disposed of in this way. Some medicines may require a different approach.4.Never flush your medications down the toilet. IF YOU HAVE BEEN PRESCRIBED AN OPIOID FOR PAIN If you have been prescribed an opioid (such as hydrocodone, oxycodone or morphine), it is critical to understand the possible side effects and risks of opioid pain medications. Even when taken as directed, opioids can have several side effects including: Tolerance, meaning you might need to take more of a medication for the same pain relief. Nausea, vomiting and/or constipation. Sleepiness, dizziness, dry mouth, confusion, depression or itching. Physical dependence, meaning you have withdrawal symptoms when a medication is stopped, can develop within a few days. KNOW YOUR RESPONSIBILITIES It is important to know exactly how much and how often to take the opioid pain medications you are prescribed. Never take opioids in higher amounts or more often than prescribed. Do not combine opioids with alcohol or other drugs that cause drowsiness, such as benzodiazepines, also known as benzos, including diazepam and alprazolam, muscle relaxants or sleep aids. Never sell or share prescription opioids. This is illegal. Store opioids in a secure place and out of reach of others (including children, family, friends and visitors). The last page of this document has been signed and retained as a CHART COPY. Signatures Patient Education Materials Moderate Conscious Sedation, Adult, Care After 3- Cardioversion (07/2018) (CUSTOM) Medication Leaflets My discharge plan and instructions have been reviewed and explained to me and I,JAMMIE NICHOLAS understand my current condition and have read and understand these discharge instructions. I have receiveda written copy of the plan/instructions. If I have questions, I am aware that I should contact my do ctor. Patient/Humidifier Operator Signature: Date/Time: Relationship to Patient: Witness Name/Signature: Date/Time: [id number] Discharge summary Date of Service December 18, 2022 Discharge Diagnosis Atrial flutter Hospital Course This is a 77-year-old male who presents today for direct-current cardioversion. Recently evaluated by general cardiology (Anuradha Alvarado APRN CNP) on December 11, 2022 where patient was noted to be inatrial flutter. Plan of care at that time was to increase metoprolol to 25 mg daily and proceed with direct-current cardioversion. Past medical history is significant for: 1. Atrial fibrillation/atrial flutter ([id number] 2 on Eliquis) 2. Aortic stenosis 3. Benign hypertension Currently managed with metoprolol. Anticoagulated with Eliquis. Patient presented for direct-current cardioversion in a fasting, well-hydrated state. Presenting rhythm was atrial flutter at a heart rate of 100 bpm. Plan is to proceed with direct-current cardioversion. Once a TACKING MACHINE OPERATOR administered an IV anesthetic agent and the patient was fully sedated, an anterior-posterior patch placement was utilized to deliver a synchronized biphasic waveform at 75 J which resulted in an approximately 4- second pause followed by the pentecostalism of normal sinus rhythm. The patient tolerated the procedure well and returned to cardiac same-day in stable condition. Follow-up as directed. Allergies NKA Procedures Direct-current cardioversion Consults No qualifying data available. Imaging Results and Diagnostics EKG performed prior to cardioversion demonstrates atrial flutter with a heart rate of 96 bpm. Intraventricular conduction delay with left bundle morphology measuring approximately 110 ms. No acute STor T wave abnormalities noted. Objective Vitals and Measurements T: 36.2 C (Skin) TMIN: 36.2 C (Skin) TMAX: 36.7 C (Oral) HR: 81(Monitored) RR: 18 BP: 128/91 SpO2: 97% HT: 172.7 cm WT: 88.2 kg BMI: 29.57 BMI: 29.57 Weight Dosing Weight: 88.2 kg (12/18/22) Code Status No qualifying data available. Admission Date December 18, 2022 Discharge Date December 18, 2022 Patient Instructions No driving for today. Resume your normal activity and diet as tolerated. You may experience some redness or skin irritation where the patches were placed. If desired, you may apply a skin moisturizerto the affected area. Follow-up as directed. Please call with any questions, concerns, or new/worsening symptoms. Medications Unchanged amLODIPine (amLODIPine 5 mg oral tablet)1 tab(s) by mouth once a day for 90 Days. Refills: 1. apixaban (Eliquis 5 mg oral tablet)1 tab(s) by mouth two (2) times a day. Refills: 11. atorvastatin (atorvastatin 40 mg oral tablet)1 tab(s) by mouth once a day. Refills: 1. finasteride (finasteride 5 mg oral tablet)1 tab(s) by mouth once a day for 90 Days. Refills: 1. losartan (losartan 50 mg oral tablet)1 tab(s) by mouth once a day. Refills: 1. metFORMIN (MetFORMIN (Eqv-Glucophage XR) 500 mg oral tablet, EXTENDED RELEASE)1 tab(s) by mouth two(2) times a day for 90 Days. with evening meal. Okay to subtitute glucophage 500 mg extended release if covered by insurance. Refills: 1. metoprolol (Metoprolol Succinate ER 25 mg oral TABLET extended release)1 tab(s) by mouth once a dayfor 90 Days. Refills: 3. nitroGLYcerin (nitroglycerin 0.4 mg sublingual tablet)1 tab(s) under the tongue every 5 minutes. DISSOLVE 1 TABLET UNDER THE TONGUE NEEDED FOR CHEST PAIN- MAY REPEAT EVERY 5 MINUTES IF NEEDED ( MAX 3 DOSES.- IF NO RELIEF CALL 911). Refills: 3. tamsulosin (tamsulosin 0.4 mg oral capsule)1 cap by mouth once a day for 90 Days. Refills: 1. Follow Up Appointments No qualifying data available. Follow Up Labs/Studies Discharge Labs No Follow-up Labs Discharge Studies No Follow-up Studies Discharge Diet Discharge Diet - Ordered -- Follow the post-operative/post-procedure diet instructions provided by your physician's office.,12/18/22 16:44:00 EST Discharge Activity Discharge Activity - Ordered -- Follow the post-operative/post-procedure activity instructions provided by your physician's office., 12/18/22 16:44:00 EST Condition on Discharge Stable Readmission Risk/Palliative Score No qualifying data available. Discharge Disposition Home Information Provided To Patient Digitally Signed by BELÉN HOU on 12/18/2022 04:55 PM Digitally Signed by FERNIE FIGUEROA MD [facility] [id number] Note Date of Service December 18, 2022 Procedure Name Direct-current cardioversion Referring Provider Dr. Bartlett/Anuradha Alvarado APRN CNP Consent Informed consent obtained from nursing staff/anesthesia personnel. Patient has been educated about the risks, benefits, and alternatives of this procedure prior to obtaining consent. Indication Atrial flutter Location CVOR Technique This is a 77-year-old male who presents today for direct-current cardioversion. Recently evaluated by general cardiology (Anuradha Alvarado APRN CNP) on December 11, 2022 where patient was noted to be inatrial flutter. Plan of care at that time was to increase metoprolol to 25 mg daily and proceed with direct-current cardioversion. Patient presented for direct-current cardioversion in a fasting, well-hydrated state. Presenting rhythm was atrial flutter at a heart rate of 100 bpm. Plan is to proceed with direct-current cardioversion. Once a TACKING MACHINE OPERATOR administered an IV anesthetic agent and the patient was fully sedated, an anterior-posterior patch placement was utilized to deliver a synchronized biphasic waveform at 75 J which resulted in an approximately 4- second pause followed by the pentecostalism of normal sinus rhythm. The patient tolerated the procedure well and returned to cardiac same-day in stable condition. I will discuss with primary EP. Digitally Signed by BELÉN HOU on 12/18/2022 04:50 PM [id number] An[facility]hesiology Consult note Patient: JAMMIE NICHOLAS Age: 77 years Sex: Male : 1945 Associated Diagnoses: None Author: NEVILLE BUSTILLOS MD Preoperative Information Time of last food or liquid consumption: 12/17/2022 23:00:00 Anesthesia history Patient's history: negative. Family's history: negative. History of Present Illness 77 yr old M pt with afib/aflutter on Eliquis presents for DCCV. PMH: , PVCs, HTN, HLD, DM, BPH, GERD, hepatic steatosis. Review of Systems Ear/Nose/Mouth/Throat: Negative except as documented in history of present illness. Respiratory: Negative except as documented in history of present illness. Cardiovascular: Negative except as documented in history of present illness. Gastrointestinal: Negative except as documented in history of present illness. Genitourinary: Negative except as documented in history of present illness. Endocrine: Negative except as documented in history of present illness. Musculoskeletal: Negative except as documented in history of present illness. Integumentary: Negative except as documented in history of present illness. Neurologic: Negative except as documented in history of present illness. Health Status Allergies: Allergic Reactions (Selected) NKA, Allergies (1) ActiveReaction NKANone Documented Current medications: (Selected) Inpatient Medications Ordered Sodium Chloride 0.9% intravenous solution 1,000 mL: 20 mL/hr, Intravenous Prescriptions Prescribed Eliquis 5 mg oral tablet: 5 mg, 1 tab(s), Oral, BID, 60 tab(s), 11 Refill(s) MetFORMIN (Eqv-Glucophage XR) 500 mg oral tablet, EXTENDED RELEASE: 500 mg, 1 tab(s), Oral, BID, for 90 day(s), with evening meal. Okay to subtitute glucophage 500 mg extended release if covered by insurance, 180 tab(s), 1 Refill(s) Metoprolol Succinate ER 25 mg oral TABLET extended release: 25 mg, 1 tab(s), Oral, qDay, for 90 day(s), 90 tab(s), 3 Refill(s) amLODIPine 5 mg oral tablet: 5 mg, 1 tab(s), Oral, qDay, for 90 day(s), 90 tab(s), 1 Refill(s) atorvastatin 40 mg oral tablet: 40 mg, 1 tab(s), Oral, qDay, 90 tab(s), 1 Refill(s) finasteride 5 mg oral tablet: 5 mg, 1 tab(s), Oral, qDay, for 90 day(s), 90 tab(s), 1 Refill(s) losartan 50 mg oral tablet: 50 mg, 1 tab(s), Oral, qDay, 90 tab(s), 1 Refill(s) nitroglycerin 0.4 mg sublingual tablet: 0.4 mg, 1 tab(s), Sublingual, q5min, DISSOLVE 1 TABLET UNDER THE TONGUE NEEDED FOR CHEST PAIN- MAY REPEAT EVERY 5 MINUTES IF NEEDED ( MAX 3 DOSES.- IF NO RELIEF CALL 911), 25 tab(s), 3 Refill(s) tamsulosin 0.4 mg oral capsule: 0.4 mg, 1 cap(s), Oral, qDay, for 90 day(s), 90 cap(s), 1 Refill(s), Medications (1) Active Scheduled: (0) Continuous: (1) NS (0.9% nacl) 1,000 mL 1,000 mL, Intravenous, 20 mL/hr PRN: (0) Problem list: Medical AORTIC STENOSIS / SNOMED CT 076811403 / Confirmed Asymptomatic microscopic hematuria / SNOMED CT 9852437818 / Confirmed HTN (hypertension), benign / SNOMED CT 25481570 / Confirmed BENIGN PROSTATIC HYPERPLASIA WITH LOWER URINARY TRACT SYMPTOMS / SNOMED CT 0160901354 / Confirmed CHEST PAIN / SNOMED CT 61574881 / Confirmed Chronic rhinitis / SNOMED CT 510314774 / Confirmed Diverticulosis / SNOMED CT 0231396959 / Confirmed Diverticulosis of colon / SNOMED CT 2179177829 / Confirmed DYSLIPIDEMIA / SNOMED CT 7160800887 / Confirmed Easy bruising / SNOMED CT 7449603560 / Confirmed Atrial flutter: CTO2VZ1-CCMg score 2 (age, HTN) / SNOMED CT 5032099406 / Confirmed Gastroesophageal reflux disease / SNOMED CT 613849151 / Confirmed RECEIVED INFLUENZA VACCINATION AT HOSPITAL / SNOMED CT 326296464 / Confirmed Hyperglycemia / SNOMED CT 145877219 / Confirmed Left inguinal hernia / SNOMED CT 450833675 / Confirmed Multiple pigmented nevi / SNOMED CT 6405176684 / Confirmed Microalbuminuria / SNOMED CT 441321745 / Confirmed PALPITATION / SNOMED CT 083775338 / Confirmed PNEUMOCOCCAL VACCINATION GIVEN / SNOMED CT 692961281 / Confirmed Proteinuria / SNOMED CT 55617483 / Confirmed Urinary retention / SNOMED CT 463827466 / Confirmed Hepatic steatosis / SNOMED CT 976832298 / Confirmed Diabetes mellitus type 2, noninsulin dependent / SNOMED CT 933682279 / Confirmed Frequent PVCs / SNOMED CT 35146426 / Confirmed, Active Problems (24) AORTIC STENOSIS Asymptomatic microscopic hematuria Atrial flutter: LCM1UM2-TDTf score 2 (age, HTN) BENIGN PROSTATIC HYPERPLASIA WITH LOWER URINARY TRACT SYMPTOMS CHEST PAIN Chronic rhinitis Diabetes mellitus type 2, noninsulin dependent Diverticulosis Diverticulosis of colon DYSLIPIDEMIA Easy bruising Frequent PVCs Gastroesophageal reflux disease Hepatic steatosis HTN (hypertension), benign Hyperglycemia Left inguinal hernia Microalbuminuria Multiple pigmented nevi PALPITATION PNEUMOCOCCAL VACCINATION GIVEN Proteinuria RECEIVED INFLUENZA VACCINATION AT HOSPITAL Urinary retention Histories Past Medical History: No active or resolved past medical history items have been selected or recorded. Family History: Hypertension Mother Brother Procedure history: Echocardiogram ([id number]) on 11/15/2021 at 75 Years. Comments: 04/16/2022 10:51 Lianne Caban MA (ABR-OE) EF 60-65% EKG finding ([id number]) on 05/27/2020 at 74 Years. Comments: 11/09/2020 10:05 Estella Mullins MA (ABR-OE) NSR 51bpm Cardioversion ([id number]) on 12/31/2019 at 74 Years. Comments: 02/24/2020 11:20 YESSY ROJAS DO Direct-current cardioversion Echocardiogram ([id number]) on 10/23/2018 at 72 Years. Comments: 12/07/2019 15:37 Lianne Lopes MA (ABR-OE) 1. Left ventricle: The cavity size is normal. Wall thickness is normal. Systolic function is normal. The estimated ejection fraction is 60-65%. Wall motion is normal; there are no regional wall motion abnormalities. 2. Aortic valve: The valve is functionally bicuspid. The leaflets are moderately thickened and severely calcified. There is mild stenosis. There is mild regurgitation. 3. Left atrium: The atrium is mildly dilated. 4. Right ventricle: The RV systolic pressure by Doppler is 28 mm Hg. 5. Right atrium: The atrium is dilated. The estimated right atrial pressure is 3 mm Hg. Stress test treadmill ([id number]) on 10/23/2018 at 72 Years. Comments: 12/07/2019 15:38 Lianne Lopes MA (ABR-OE) 1. Positive exercise EKG stress test for ischemia. 2. Average functional capacity. 3. No exercise-induced chest pain. 4. Occasional PVCs at rest noted, which reduced in frequency with exercise. 5. Normal blood pressure and heart rate response to exercise noted. 1. No evidence of inducible ischemia or prior myocardial infarction 2. Normal wall motion and systolic function, LVEF 62% Colonoscopy ([id number]) on 02/11/2012 at 66 Years. Comments: 06/18/2019 7:37 Sheyla Marie LPN normal Holter monitor ([id number]). Comments: 12/07/2019 15:39 Lianne Lopes MA (ABR-OE) 24 HOUR -1. Sinus rhythm 65 to 135, average 88 beats per minute. 2. Frequent ventricular ectopic complexes representing 10% of all QRS complexes. Most in isolation with no ventricular tachycardia noted. 3. Rare supraventricular ectopic complexes, most in isolation with 2 couplets. 4. No long pauses or signs of high grade AV block Social History Social & Psychosocial Habits Alcohol 06/18/2019 Use: Current Frequency: 1-2 times per month Employment/School 09/29/2021 Status: Employed Substance Abuse 06/18/2019 Use: Never Tobacco 01/05/2022 Tobacco Use: Never (less than 100 in l Exposure to Tobacco Smoke Lives in non-smoking home Exercise 09/29/2021 Exercise type: Walking Times per week: Daily Home/Environment 06/18/2019 Other risks in environment: no smoke exposure Nutrition/Health 06/18/2019 Caffeine intake amount: 1 serving/day . Physical Examination Vital Signs 12/18/2022 12:31 EST Temperature Oral 36.7 DegC Peripheral Pulse Rate 107 bpm HI Respiratory Rate 18 br/min Systolic Blood Pressure Non-Invasive 146 mmHg HI Diastolic Blood Pressure Non-Invasive 83 mmHg Vital Signs(last 24 hrs) Last Charted Temp Oral36.7 DegC (DEC 18 12:31) Resp Rate 18 br/min (DEC 18 12:31) SBPH 146mmHg (DEC 18 12:31) DBP83 mmHg (DEC 18 12:31) BMI29.57 (DEC 18 12:31) Measurements from flowsheet : Measurements 12/18/2022 12:31 EST Height 172.7 cm Height in inches 68 inch(es) Admission Weight 88.2 kg Weight Lbs 194 lb Weight Method Actual [place] Body Weight 68.38 kg Body Mass Index 29.57 kg/m2 Body Mass Index 29.57 kg/m2 Admission Body Mass Index 29.57 m2 Pain assessment: Pain Assessment 12/18/2022 12:31 EST Primary Pain Intensity 0 Pain Scale Type 0-10 Pain scale . Airway: Normal temporomandibular joint mobility, Nares patent. Mallampati classification: III (soft palate, base of uvula visible). Head: Normocephalic, Atraumatic. Dentition Evaluation: No teeth. Neck: Supple, Non-tender. Respiratory: Lungs are clear to auscultation, Respirations are non-labored, Breath sounds are equal. Cardiovascular: tachycardic, irregular rhythm.. Heart Sounds: Normal. Gastrointestinal: Soft, Non-tender. Musculoskeletal Normal range of motion. Normal strength. No swelling. Integumentary: Warm, Dry, No pallor. Neurologic: Alert, Oriented, No focal deficits. Review / Management Results review: Labs (Last four charted values) WBC 7.0(DEC 18) Hgb 13.5(DEC 18) Hct 41.2(DEC 18) Plt 216(DEC 18) Na 140(DEC 18) K 4.2(DEC 18) CO2 28(DEC 18) Cl 104(DEC 18) Cr 0.75(DEC 18) BUN 15.0(DEC 18) Glucose H 131(DEC 18) Ca 9.6(DEC 18) PT H 16.6(DEC 18) INR 1.4(DEC 18) , Lab results 12/18/2022 12:39 EST SN - Preop - CTm - Pt in HL SD Room 12/18/2022 12:15 SN - Preop - CTm - HL Pt Ready for Procedure 12/18/2022 12:39 12/18/2022 12:31 EST Designated Person #1 We May Share [facility] [phone] [place] [phone] Designated Person #1 Relationship Spouse Privacy Restrictions Requested None Height 172.7 cm Height in inches 68 inch(es) Admission Weight 88.2 kg Weight Lbs 194 lb Weight Method Actual [place] Body Weight 68.38 kg Body Mass Index 29.57 kg/m2 Body Mass Index 29.57 kg/m2 Admission Body Mass Index 29.57 m2 Temperature Oral 36.7 DegC Peripheral Pulse Rate 107 bpm HI Respiratory Rate 18 br/min Systolic Blood Pressure Non-Invasive 146 mmHg HI Diastolic Blood Pressure Non-Invasive 83 mmHg Primary Pain Intensity 0 Pain Scale Type 0-10 Pain scale Cardiovascular Symptoms Dizziness Dorsalis Pedis Pulse, Left 2+ Normal Dorsalis Pedis Pulse, Right 2+ Normal Radial Pulse, Left 2+ Normal Radial Pulse, Right 2+ Normal Respirations Unlabored Respiratory Pattern Regular Breath Sounds Auscultated Anterior and posterior All Lobes Breath Sounds Diminished Oxygen Therapy Room air Oxygen Saturation 98 % Abdomen Description Symmetric, Soft, Rounded Abdomen Palpation Non-Tender Bowel Sounds All Quadrants Present Status N/A Skin Temperature Warm Skin Description Normal for ethnicity, Dry Mucous Membrane Color [place] IV Present Present Antecubital Left 12/18/2022 18 gauge Peripheral IV Activity: Insert new site Peripheral IV Dressing Condition: Clean, Dry, Intact Peripheral IV Dressing Activity: Applied, Transparent dressing Peripheral IV Line Status/Patency: Flushes easily Peripheral IV Site Condition: No complications Peripheral IV Equipment: PRN Adaptor Peripheral IV Number of Attempts: 1 Level of Consciousness Alert Strength All Extremities Strong Tone All Extremities Normal Sensation All Extremities Intact Affect/Behavior Appropriate, Calm, Cooperative Orientation Oriented x 4 Sensory Deficits None Sleep Apnea Snore Yes Sleep Apnea Tired No Sleep Apnea Obstruction No Sleep Apnea Pressure Yes Sleep Apnea BMI No Sleep Apnea Age Yes Sleep Apnea Neck No Sleep Apnea Gender Yes Sleep Apnea Score 4 High Risk for Sleep Apnea Yes Diagnosed With Sleep Apnea No Advanced Directives Unable to obtain Infectious Disease Symptoms Patient states no symptoms Infectious Disease Recent Exposure No Alcohol and Drug Use No Employee of Institutional Living No Health Care Employee No History of Exposure to TB No History of Positive Chest X-Ray for TB No History of Positive TB Skin Test No Homeless No Known Immunosuppression No Recent Immigrant No Resident of Institutional Living No Bloody Sputum No Fatigue No Fever No Loss of Appetite No Night Sweats No Persistent Cough > 3 Weeks No Weight Loss No Allergies No Consent Form Signed Yes Patient Dressed In Hospital gown History & Physical Update On Chart Yes History & Physical On Chart Yes Obstructive Sleep Apnea Assess Completed Yes Safety Brochure Information Reviewed Yes Sreedhar Ramirez Video Viewed No Individuals Taught Patient, Spouse Learning Readiness Willing to learn Barriers to Learning None evident Teaching Method Printed materials Teaching Evaluation Verbalizes/Nonverbally indicates understanding Preferred Written Language Citizen Of [place] Family/Caregiver Prefer Written Language Citizen Of [place] Preferred Spoken Language Citizen Of [place] Family/Caregiver Prefer Spoken Language Citizen Of [place] General Infection Prevention Strategies Hand hygiene, Remind patient/visitor to mask when w/Healthcare Provider Pre Procedure/Surgery Education Appropriate expectations, Bring glasses, hearing aids, contact lenscase, Date/Time of procedure/surgery, Hospital gown requirement worn to OR, Leave valuables, jewelry, wedding ring at home, Meds to take or hold, NPO, Responsible p d driver for discharge Procedure/Surgery Testing Education EKG, Lab tests Ed-Infection Signs/Symptoms Verbalizes/Nonverbally indicates understanding Information Given by Patient Patient's Current Physicians Patient's Current Physicians Discharge To, Anticipated Home independently Assistive Device None NPO Status Maintained Standard Safety ID band on, Call device within reach, Bed in low position, Wheels locked, Upper/Half-Length side-rails up, Phone within reach, personal items within reach, Visitor at bedside Prev Test Positive/Diagnosis w/COVID-19 No Current Quarantine/Isolated any Illness No Any Contact with Sick Animals/Birds No Traveled Anywhere in Last 30 Days No Allergy Band on and Verified No Patient ID Band on and Verified Yes Last Fluid Intake 12/17/2022 19:00 Last Food Intake 12/17/2022 19:00 Lost Weight Unintentionally Recently No Eat Poorly Due to Decreased Appetite Yes Total MST Score 1 N/A Personal Devices, Patient Valuables Glasses Anesthesia/Transfusions Prior anesthesia Admission Note-Nursing Same Day Patient History 12/18/2022 12:29 EST Sodium Chloride 0.9% Begin Bag 1,000 mL mL 12/18/2022 12:28 EST WBC 7.0 10^3/mcL RBC 5.41 10^6/mcL Hgb 13.5 G/dL Hct 41.2 % MCV 76.2 fL LOW MCH 25.0 pg LOW MCHC 32.8 G/dL RDW 14.1 % Platelet 216 10^3/mcL MPV 7.7 fL Neutrophil % 60.5 % Lymphocyte % 21.6 % Monocyte % 11.4 % Eosinophil % 5.5 % Basophil % 1.0 % Neutrophil, Absolute 4.2 10^3/mcL Lymphocyte, Absolute 1.5 10^3/mcL Monocyte, Absolute 0.8 10^3/mcL Eosinophil, Absolute 0.4 10^3/mcL Basophil, Absolute 0.1 10^3/mcL Protime 16.6 seconds HI PT International Ratio 1.4 ratio NA Glucose Level 131 mg/dL HI Sodium Level 140 mEq/L Potassium Level 4.2 mEq/L Chloride 104 mEq/L CO2 28 mEq/L Electrolyte Balance 8.0 mEq/L BUN 15.0 mg/dL Creatinine Lvl (s) 0.75 mg/dL BUN/Creatinine Ratio 20.0 ratio Calcium Lvl 9.6 mg/dL GFR Non- >60 ml/min/1.73sqm NA GFR >60 ml/min/1.73sqm NA Creatinine Clearance Calc 82.31 mL/min 12/18/2022 12:10 EST Electrocardiogram - EKG - CV Completed (In Progress) . Assessment and Plan [place] [employer] Anesthesiologists (ASA) physical status classification: Class III. Anesthetic Preoperative Plan Premedication: intravenous. Anesthetic technique: General. Maintenance airway: Mask. Postoperative pain management: Per surgeon. Risks discussed: nausea, vomiting, sore throat, allergic reaction, serious complications. Informed consent: signed by patient. Digitally Signed by NEVILLE BUSTILLOS MD on 12/18/2022 03:41 PM [id number] Discharge instructions Patient Education 08/13/2022 12:04:31 Screening for Sleep Apnea Screening for Sleep Apnea Sleep apnea is a condition in which breathing pauses or becomes shallow during sleep. Sleep apnea screening is a test to determine if you are at risk for sleep apnea. The test is easy and only takes a few minutes. Your health care provider may ask you to have this test in preparation for surgery oras part of a physical exam. What are the symptoms of sleep apnea? Common symptoms of sleep apnea include: Snoring. Restless sleep. Daytime sleepiness. Pauses in breathing. Choking during sleep. Irritability. Forgetfulness. Trouble thinking clearly. Depression. Personality changes. Most people with sleep apnea are not aware that they have it. Why should I get screened? Getting screened for sleep apnea can help: Ensure your safety. It is important for your health care providers to know whether or not you have sleep apnea, especially if you are having surgery or have other long-term (chronic) health conditions. Improve your health and allow you to get a better night's rest. Restful sleep can help you: ?Have more energy. ?Lose weight. ?Improve high blood pressure. ?Improve diabetes management. ?Prevent stroke. ?Prevent car accidents. How is screening done? Screening usually includes being asked a list of questions about your sleep quality. Some questionsyou may be asked include: Do you snore? Is your sleep restless? Do you have daytime sleepiness? Has a partner or spouse told you that you stop breathing during sleep? Have you had trouble concentrating or memory loss? If your screening test is positive, you are at risk for the condition. Further testing may be needed to confirm a diagnosis of sleep apnea. Where to find more information You can find screening tools online or at your health care clinic. For more information about sleepapnea screening and healthy sleep, visit these websites: Centers for Disease Control and Prevention: www.cdc.gov/sleep/index.html [place] [employer]: www.sleepapnea.org Contact a health care provider if: You think that you may have sleep apnea. Summary Sleep apnea screening can help determine if you are at risk for sleep apnea. It is important for your health care providers to know whether or not you have sleep apnea, especially if you are having surgery or have other chronic health conditions. You may be asked to take a screening test for sleep apnea in preparation for surgery or as part of a physical exam. This information is not intended to replace advice given to you by your health care provider. Make sure you discuss any questions you have with your health care provider. Document Released: 01/24/2018 Document Revised: 07/31/2019 Document Reviewed: 01/24/2018 [employer] Patient Education 2020 [employer] 08/13/2022 12:04:31 Sleep Apnea Sleep Apnea Sleep apnea is a condition in which breathing pauses or becomes shallow during sleep. Episodes of sleep apnea usually last 10 seconds or longer, and they may occur as many as 20 times an hour. Sleep apnea disrupts your sleep and keeps your body from getting the rest that it needs. This condition can increase your risk of certain health problems, including: Heart attack. Stroke. Obesity. Diabetes. Heart failure. Irregular heartbeat. What are the causes? There are three kinds of sleep apnea: Obstructive sleep apnea. This kind is caused by a blocked or collapsed airway. Central sleep apnea. This kind happens when the part of the brain that controls breathing does not send the correct signals to the muscles that control breathing. Mixed sleep apnea. This is a combination of obstructive and central sleep apnea. The most common cause of this condition is a collapsed or blocked airway. An airway can collapse orbecome blocked if: Your throat muscles are abnormally relaxed. Your tongue and tonsils are larger than normal. You are overweight. Your airway is smaller than normal. What increases the risk? You are more likely to develop this condition if you: Are overweight. Smoke. Have a smaller than normal airway. Are elderly. Are male. Drink alcohol. Take sedatives or tranquilizers. Have a family history of sleep apnea. What are the signs or symptoms? Symptoms of this condition include: Trouble staying asleep. Daytime sleepiness and tiredness. Irritability. Loud snoring. Morning headaches. Trouble concentrating. Forgetfulness. Decreased interest in sex. Unexplained sleepiness. Mood swings. Personality changes. Feelings of depression. Waking up often during the night to urinate. Dry mouth. Sore throat. How is this diagnosed? This condition may be diagnosed with: A medical history. A physical exam. A series of tests that are done while you are sleeping (sleep study). These tests are usually done in a sleep lab, but they may also be done at home. How is this treated? Treatment for this condition aims to restore normal breathing and to ease symptoms during sleep. Itmay involve managing health issues that can affect breathing, such as high blood pressure or obesity. Treatment may include: Sleeping on your side. Using a decongestant if you have nasal congestion. Avoiding the use of depressants, including alcohol, sedatives, and narcotics. Losing weight if you are overweight. Making changes to your diet. Quitting smoking. Using a device to open your airway while you sleep, such as: ?An oral appliance. This is a custom-made mouthpiece that shifts your lower jaw forward. ?A continuous positive airway pressure (CPAP) device. This device blows air through a mask when youbreathe out (exhale). ?A nasal expiratory positive airway pressure (EPAP) device. This device has valves that you put into each nostril. ?A bi-level positive airway pressure (BPAP) device. This device blows air through a mask when you breathe in (inhale) and breathe out (exhale). Having surgery if other treatments do not work. During surgery, excess tissue is removed to create a wider airway. It is important to get treatment for sleep apnea. Without treatment, this condition can lead to: High blood pressure. Coronary artery disease. In men, an inability to achieve or maintain an erection (impotence). Reduced thinking abilities. Follow these instructions at home: Lifestyle Make any lifestyle changes that your health care provider recommends. Eat a healthy, well-balanced diet. Take steps to lose weight if you are overweight. Avoid using depressants, including alcohol, sedatives, and narcotics. Do not use any products that contain nicotine or tobacco, such as cigarettes, e- cigarettes, and chewing tobacco. If you need help quitting, ask your health care provider. General instructions Take [id number] and prescription medicines only as told by your health care provider. If you were given a device to open your airway while you sleep, use it only as told by your health care provider. If you are having surgery, make sure to tell your health care provider you have sleep apnea. You may need to bring your device with you. Keep all follow-up visits as told by your health care provider. This is important. Contact a health care provider if: The device that you received to open your airway during sleep is uncomfortable or does not seem to be working. Your symptoms do not improve. Your symptoms get worse. Get help right away if: You develop: ?Chest pain. ?Shortness of breath. ?Discomfort in your back, arms, or stomach. You have: ?Trouble speaking. ?Weakness on one side of your body. ?Drooping in your face. These symptoms may represent a serious problem that is an emergency. Do not wait to see if the symptoms will go away. Get medical help right away. Call your local emergency services (911 in the [place] Do not drive yourself to the hospital. Summary Sleep apnea is a condition in which breathing pauses or becomes shallow during sleep. The most common cause is a collapsed or blocked airway. The goal of treatment is to restore normal breathing and to ease symptoms during sleep. This information is not intended to replace advice given to you by your health care provider. Make sure you discuss any questions you have with your health care provider. Document Released: 10/04/2003 Document Revised: 03/30/2020 Document Reviewed: 06/09/2019 [employer] Patient Education 2020 [employer]. 08/13/2022 12:04:31 Monitored Anesthesia Care, Care After Monitored Anesthesia Care, Care After These instructions provide you with information about caring for yourself after your procedure. Your health care provider may also give you more specific instructions. Your treatment has been plannedaccording to current medical practices, but problems sometimes occur. Call your health care provider if you have any problems or questions after your procedure. What can I expect after the procedure? After your procedure, you may: Feel sleepy for several hours. Feel clumsy and have poor balance for several hours. Feel forgetful about what happened after the procedure. Have poor judgment for several hours. Feel nauseous or vomit. Have a sore throat if you had a breathing tube during the procedure. Follow these instructions at home: For at least 24 hours after the procedure: Have a responsible adult stay with you. It is important to have someone help care for you until youare awake and alert. Rest as needed. Do not: ?Participate in activities in which you could fall or become injured. ?Drive. ?Use heavy machinery. ?Drink alcohol. ?Take sleeping pills or medicines that cause drowsiness. ?Make important decisions or sign legal documents. ?Take care of children on your own. Eating and drinking Follow the diet that is recommended by your health care provider. If you vomit, drink water, juice, or soup when you can drink without vomiting. Make sure you have little or no nausea before eating solid foods. General instructions Take uxkz-htn-gjgvuhu and prescription medicines only as told by your health care provider. If you have sleep apnea, surgery and certain medicines can increase your risk for breathing problems. Follow instructions from your health care provider about wearing your sleep device: ?Anytime you are sleeping, including during daytime naps. ?While taking prescription pain medicines, sleeping medicines, or medicines that make you drowsy. If you smoke, do not smoke without supervision. Keep all follow-up visits as told by your health care provider. This is important. Contact a health care provider if: You keep feeling nauseous or you keep vomiting. You feel light-headed. You develop a rash. You have a fever. Get help right away if: You have trouble breathing. Summary For several hours after your procedure, you may feel sleepy and have poor judgment. Have a responsible adult stay with you for at least 24 hours or until you are awake and alert. This information is not intended to replace advice given to you by your health care provider. Make sure you discuss any questions you have with your health care provider. Document Released: 02/03/2017 Document Revised: 01/12/2019 Document Reviewed: 02/03/2017 [employer] Patient Education 2020 [employer]. 08/13/2022 12:04:31 Colonoscopy, Adult, Care After, Nxat-ft-Rvhl Colonoscopy, Adult, Care After This sheet gives you information about how to care for yourself after your procedure. Your doctor may also give you more specific instructions. If you have problems or questions, call your doctor. What can I expect after the procedure? After the procedure, it is common to have: A small amount of blood in your poop for 24 hours. Some gas. Mild cramping or bloating in your belly. Follow these instructions at home: General instructions For the first 24 hours after the procedure: ?Do not drive or use machinery. ?Do not sign important documents. ?Do not drink alcohol. ?Do your daily activities more slowly than normal. ?Eat foods that are soft and easy to digest. Take rbox-tzq-ixysdmc or prescription medicines only as told by your doctor. To help cramping and bloating: Try walking around. Put heat on your belly (abdomen) as told by your doctor. Use a heat source that your doctor recommends, such as a moist heat pack or a heating pad. ?Put a towel between your skin and the heat source. ?Leave the heat on for 20 30 minutes. ?Remove the heat if your skin turns bright red. This is especially important if you cannot feel pain, heat, or cold. You can get burned. Eating and drinking Drink enough fluid to keep your pee (urine) clear or pale yellow. Return to your normal diet as told by your doctor. Avoid heavy or fried foods that are hard to digest. Avoid drinking alcohol for as long as told by your doctor. Contact a doctor if: You have blood in your poop (stool) 2 3 days after the procedure. Get help right away if: You have more than a small amount of blood in your poop. You see large clumps of tissue (blood clots) in your poop. Your belly is swollen. You feel sick to your stomach (nauseous). You throw up (vomit). You have a fever. You have belly pain that gets worse, and medicine does not help your pain. Summary After the procedure, it is common to have a small amount of blood in your poop. You may also have mild cramping and bloating in your belly. For the first 24 hours after the procedure, do not drive or use machinery, do not sign important documents, and do not drink alcohol. Get help right away if you have a lot of blood in your poop, feel sick to your stomach, have a fever, or have more belly pain. This information is not intended to replace advice given to you by your health care provider. Make sure you discuss any questions you have with your health care provider. Document Released: 11/16/2011 Document Revised: 08/14/2018 Document Reviewed: 07/08/2017 [employer] Patient Education 2020 [employer]. 08/13/2022 12:04:31 Colon Polyps Colon Polyps Polyps are tissue growths inside the body. Polyps can grow in many places, including the large intestine (colon). A polyp may be a round bump or a mushroom-shaped growth. You could have one polyp or several. Most colon polyps are noncancerous (benign). However, some colon polyps can become cancerous over time. Finding and removing the polyps early can help prevent this. What are the causes? The exact cause of colon polyps is not known. What increases the risk? You are more likely to develop this condition if you: Have a family history of colon cancer or colon polyps. Are older than 50 or older than 45 if you are . Have inflammatory bowel disease, such as ulcerative colitis or Crohn's disease. Have certain hereditary conditions, such as: ?Familial adenomatous polyposis. ?Bonilla syndrome. ?Turcot syndrome. ?Peutz Jeghers syndrome. Are overweight. Smoke cigarettes. Do not get enough exercise. Drink too much alcohol. Eat a diet that is high in fat and red meat and low in fiber. Had childhood cancer that was treated with abdominal radiation. What are the signs or symptoms? Most polyps do not cause symptoms. If you have symptoms, they may include: Blood coming from your rectum when having a bowel movement. Blood in your stool. The stool may look dark red or black. Abdominal pain. A change in bowel habits, such as constipation or diarrhea. How is this diagnosed? This condition is diagnosed with a colonoscopy. This is a procedure in which a lighted, flexible scope is inserted into the anus and then passed into the colon to examine the area. Polyps are sometimes found when a colonoscopy is done as part of routine cancer screening tests. How is this treated? Treatment for this condition involves removing any polyps that are found. Most polyps can be removed during a colonoscopy. Those polyps will then be tested for cancer. Additional treatment may be needed depending on the results of testing. Follow these instructions at home: Lifestyle Maintain a healthy weight, or lose weight if recommended by your health care provider. Exercise every day or as told by your health care provider. Do not use any products that contain nicotine or tobacco, such as cigarettes and e-cigarettes. If you need help quitting, ask your health care provider. If you drink alcohol, limit how much you have: ?0 1 drink a day for women. ? 0 2 drinks a day for men. Be aware of how much alcohol is in your drink. In the [place] one drink equals one 12 oz bottle of beer (355 mL), one 5 oz glass of wine (148 mL), or one 1 oz shot of hard liquor (44 mL). Eating and drinking Eat foods that are high in fiber, such as fruits, vegetables, and whole grains. Eat foods that are high in calcium and vitamin D, such as milk, cheese, yogurt, eggs, liver, fish, and broccoli. Limit foods that are high in fat, such as fried foods and desserts. Limit the amount of red meat and processed meat you eat, such as hot dogs, sausage, zarate, and lunch meats. General instructions Keep all follow-up visits as told by your health care provider. This is important. ?This includes having regularly scheduled colonoscopies. ?Talk to your health care provider about when you need a colonoscopy. Contact a health care provider if: You have new or worsening bleeding during a bowel movement. You have new or increased blood in your stool. You have a change in bowel habits. You lose weight for no known reason. Summary Polyps are tissue growths inside the body. Polyps can grow in many places, including the colon. Most colon polyps are noncancerous (benign), but some can become cancerous over time. This condition is diagnosed with a colonoscopy. Treatment for this condition involves removing any polyps that are found. Most polyps can be removed during a colonoscopy. This information is not intended to replace advice given to you by your health care provider. Make sure you discuss any questions you have with your health care provider. Document Released: 07/10/2005 Document Revised: 01/29/2019 Document Reviewed: 01/29/2019 [employer] Patient Education 2020 [employer]. Follow Up Care 07/30/2022 15:24:56 With:AMARILYS VERDUZCO MD, Surgery Address: [address] [phone] When: Unknown Comments:call for follow up appointment [facility] 10-17-2022 Summary of episode note Discharge Instructions Thank you for allowing [facility] to assist you with your healthcare needs. The following is importantdischarge information regarding your hospital visit. Your Care Team YESSY SANTILLAN DO What to do next Scheduled Follow-Up Appointments Appointment Type When With Where Contact InformationCV OV 09/10/2022 11:30 AM EST [facility] OV 01/04/2023 03:00 PM EST YESSY SANTILLAN DO [address] [id number] Follow Up Appointments Follow Up with AMARILYS VERDUZCO MD, Surgery When Why: call for follow up appointment Where: [address] [place] [phone] The Following Activity and Diet Have Been Ordered for You No qualifying data available. No qualifying data available. The Following Equipment Has Been Ordered for You No qualifying data available. The Following Treatments Have Been Ordered for You Discharge Labs No qualifying data available. Discharge Radiology No qualifying data available. Other Therapies No qualifying data available. Post Acute Orders No qualifying data available. Someone Will Contact You Regarding These Home Health Referrals No home referrals have been ordered for you. No one will call you. Allergies NKA Medications Please ask your primary doctor or pharmacist before taking any other medication not listed, including over the counter drugs, herbal medications, vitamins and or supplements as they may interact withyour home medications. What How Much When Instructions Last Dose Unchanged amLODIPine (amLODIPine 5 mg oral tablet) 1 tab(s) by mouth Once a day Duration: 90 Days Unchanged apixaban (Eliquis 5 mg oral tablet) 1 tab(s) by mouth Two (2) times a day Duration: 30 Days Unchanged atorvastatin (atorvastatin 40 mg oral tablet) 1 tab(s) by mouth Once a day Unchanged finasteride (finasteride 5 mg oral tablet) 1 tab(s) by mouth Once a day Duration: 90 Days Unchanged losartan (losartan 50 mg oral tablet) 1 tab(s) by mouth Once a day Unchanged metFORMIN (MetFORMIN (Eqv-Glucophage XR) 500 mg oral tablet, EXTENDED RELEASE) 1 tab(s) by mouth Two (2) times a day Duration: 90 Days with evening meal. Okay to subtitute glucophage 500 mg extended release if covered by insurance Unchanged metoprolol (Metoprolol Succinate ER 25 mg oral TABLET extended release) 0.5 tab(s) by mouth Once a day Duration: 90 Days Unchanged nitroGLYcerin (nitroglycerin 0.4 mg sublingual tablet) 1 tab(s) under the tongue Every 5 minutes DISSOLVE 1 TABLET UNDER THE TONGUE NEEDED FOR CHEST PAIN- MAY REPEAT EVERY 5 MINUTES IF NEEDED (MAX 3 DOSES.- IF NO RELIEF CALL 911) Unchanged tamsulosin (tamsulosin 0.4 mg oral capsule) 1 cap by mouth Once a day Duration: 90 Days Please take this list to your next doctor s visit. Bring all medications you take, including over the counter medications, herbals and other supplements with you to your doctor s visit. Patients and families are reminded to discard old lists and to update any records with all medication providers or retail pharmacies. Education Materials Screening for Sleep Apnea Sleep apnea is a condition in which breathing pauses or becomes shallow during sleep. Sleep apnea screening is a test to determine if you are at risk for sleep apnea. The test is easy and only takes a few minutes. Your health care provider may ask you to have this test in preparation for surgery oras part of a physical exam. What are the symptoms of sleep apnea? Common symptoms of sleep apnea include: Snoring. Restless sleep. Daytime sleepiness. Pauses in breathing. Choking during sleep. Irritability. Forgetfulness. Trouble thinking clearly. Depression. Personality changes. Most people with sleep apnea are not aware that they have it. Why should I get screened? Getting screened for sleep apnea can help: Ensure your safety. It is important for your health care providers to know whether or not you have sleep apnea, especially if you are having surgery or have other long-term (chronic) health conditions. Improve your health and allow you to get a better night's rest. Restful sleep can help you: ? Have more energy. ? Lose weight. ? Improve high blood pressure. ? Improve diabetes management. ? Prevent stroke. ? Prevent car accidents. How is screening done? Screening usually includes being asked a list of questions about your sleep quality. Some questionsyou may be asked include: Do you snore? Is your sleep restless? Do you have daytime sleepiness? Has a partner or spouse told you that you stop breathing during sleep? Have you had trouble concentrating or memory loss? If your screening test is positive, you are at risk for the condition. Further testing may be needed to confirm a diagnosis of sleep apnea. Where to find more information You can find screening tools online or at your health care clinic. For more information about sleepapnea screening and healthy sleep, visit these websites: Centers for Disease Control and Prevention: www.cdc.gov/sleep/index.html [place] [employer]: www.sleepapnea.org Contact a health care provider if: You think that you may have sleep apnea. Summary Sleep apnea screening can help determine if you are at risk for sleep apnea. It is important for your health care providers to know whether or not you have sleep apnea, especially if you are having surgery or have other chronic health conditions. You may be asked to take a screening test for sleep apnea in preparation for surgery or as part of a physical exam. This information is not intended to replace advice given to you by your health care provider. Make sure you discuss any questions you have with your health care provider. Document Released: 01/24/2018 Document Revised: 07/31/2019 Document Reviewed: 01/24/2018 [employer] Patient Education 2020 [employer] Sleep Apnea Sleep apnea is a condition in which breathing pauses or becomes shallow during sleep. Episodes of sleep apnea usually last 10 seconds or longer, and they may occur as many as 20 times an hour. Sleep apnea disrupts your sleep and keeps your body from getting the rest that it needs. This condition can increase your risk of certain health problems, including: Heart attack. Stroke. Obesity. Diabetes. Heart failure. Irregular heartbeat. What are the causes? There are three kinds of sleep apnea: Obstructive sleep apnea. This kind is caused by a blocked or collapsed airway. Central sleep apnea. This kind happens when the part of the brain that controls breathing does not send the correct signals to the muscles that control breathing. Mixed sleep apnea. This is a combination of obstructive and central sleep apnea. The most common cause of this condition is a collapsed or blocked airway. An airway can collapse orbecome blocked if: Your throat muscles are abnormally relaxed. Your tongue and tonsils are larger than normal. You are overweight. Your airway is smaller than normal. What increases the risk? You are more likely to develop this condition if you: Are overweight. Smoke. Have a smaller than normal airway. Are elderly. Are male. Drink alcohol. Take sedatives or tranquilizers. Have a family history of sleep apnea. What are the signs or symptoms? Symptoms of this condition include: Trouble staying asleep. Daytime sleepiness and tiredness. Irritability. Loud snoring. Morning headaches. Trouble concentrating. Forgetfulness. Decreased interest in sex. Unexplained sleepiness. Mood swings. Personality changes. Feelings of depression. Waking up often during the night to urinate. Dry mouth. Sore throat. How is this diagnosed? This condition may be diagnosed with: A medical history. A physical exam. A series of tests that are done while you are sleeping (sleep study). These tests are usually done in a sleep lab, but they may also be done at home. How is this treated? Treatment for this condition aims to restore normal breathing and to ease symptoms during sleep. Itmay involve managing health issues that can affect breathing, such as high blood pressure or obesity. Treatment may include: Sleeping on your side. Using a decongestant if you have nasal congestion. Avoiding the use of depressants, including alcohol, sedatives, and narcotics. Losing weight if you are overweight. Making changes to your diet. Quitting smoking. Using a device to open your airway while you sleep, such as: ? An oral appliance. This is a custom-made mouthpiece that shifts your lower jaw forward. ? A continuous positive airway pressure (CPAP) device. This device blows air through a mask when you breathe out (exhale). ? A nasal expiratory positive airway pressure (EPAP) device. This device has valves that you put intoeach nostril. ? A bi-level positive airway pressure (BPAP) device. This device blows air through a mask when you breathe in (inhale) and breathe out (exhale). Having surgery if other treatments do not work. During surgery, excess tissue is removed to create a wider airway. It is important to get treatment for sleep apnea. Without treatment, this condition can lead to: High blood pressure. Coronary artery disease. In men, an inability to achieve or maintain an erection (impotence). Reduced thinking abilities. Follow these instructions at home: Lifestyle Make any lifestyle changes that your health care provider recommends. Eat a healthy, well-balanced diet. Take steps to lose weight if you are overweight. Avoid using depressants, including alcohol, sedatives, and narcotics. Do not use any products that contain nicotine or tobacco, such as cigarettes, e- cigarettes, and chewing tobacco. If you need help quitting, ask your health care provider. General instructions Take docs-znj-unpeaiz and prescription medicines only as told by your health care provider. If you were given a device to open your airway while you sleep, use it only as told by your health care provider. If you are having surgery, make sure to tell your health care provider you have sleep apnea. You may need to bring your device with you. Keep all follow-up visits as told by your health care provider. This is important. Contact a health care provider if: The device that you received to open your airway during sleep is uncomfortable or does not seem to be working. Your symptoms do not improve. Your symptoms get worse. Get help right away if: You develop: ? Chest pain. ? Shortness of breath. ? Discomfort in your back, arms, or stomach. You have: ? Trouble speaking. ? Weakness on one side of your body. ? Drooping in your face. These symptoms may represent a serious problem that is an emergency. Do not wait to see if the symptoms will go away. Get medical help right away. Call your local emergency services (911 in the [place] Do not drive yourself to the hospital. Summary Sleep apnea is a condition in which breathing pauses or becomes shallow during sleep. The most common cause is a collapsed or blocked airway. The goal of treatment is to restore normal breathing and to ease symptoms during sleep. This information is not intended to replace advice given to you by your health care provider. Make sure you discuss any questions you have with your health care provider. Document Released: 10/04/2003 Document Revised: 03/30/2020 Document Reviewed: 06/09/2019 [employer] Patient Education 2020 [employer]. Monitored Anesthesia Care, Care After These instructions provide you with information about caring for yourself after your procedure. Your health care provider may also give you more specific instructions. Your treatment has been plannedaccording to current medical practices, but problems sometimes occur. Call your health care provider if you have any problems or questions after your procedure. What can I expect after the procedure? After your procedure, you may: Feel sleepy for several hours. Feel clumsy and have poor balance for several hours. Feel forgetful about what happened after the procedure. Have poor judgment for several hours. Feel nauseous or vomit. Have a sore throat if you had a breathing tube during the procedure. Follow these instructions at home: For at least 24 hours after the procedure: Have a responsible adult stay with you. It is important to have someone help care for you until youare awake and alert. Rest as needed. Do not: ? Participate in activities in which you could fall or become injured. ? Drive. ? Use heavy machinery. ? Drink alcohol. ? Take sleeping pills or medicines that cause drowsiness. ? Make important decisions or sign legal documents. ? Take care of children on your own. Eating and drinking Follow the diet that is recommended by your health care provider. If you vomit, drink water, juice, or soup when you can drink without vomiting. Make sure you have little or no nausea before eating solid foods. General instructions Take tymu-cdi-hrvtogq and prescription medicines only as told by your health care provider. If you have sleep apnea, surgery and certain medicines can increase your risk for breathing problems. Follow instructions from your health care provider about wearing your sleep device: ? Anytime you are sleeping, including during daytime naps. ? While taking prescription pain medicines, sleeping medicines, or medicines that make you drowsy. If you smoke, do not smoke without supervision. Keep all follow-up visits as told by your health care provider. This is important. Contact a health care provider if: You keep feeling nauseous or you keep vomiting. You feel light-headed. You develop a rash. You have a fever. Get help right away if: You have trouble breathing. Summary For several hours after your procedure, you may feel sleepy and have poor judgment. Have a responsible adult stay with you for at least 24 hours or until you are awake and alert. This information is not intended to replace advice given to you by your health care provider. Make sure you discuss any questions you have with your health care provider. Document Released: 02/03/2017 Document Revised: 01/12/2019 Document Reviewed: 02/03/2017 [employer] Patient Education 2020 [employer]. Colonoscopy, Adult, Care After This sheet gives you information about how to care for yourself after your procedure. Your doctor may also give you more specific instructions. If you have problems or questions, call your doctor. What can I expect after the procedure? After the procedure, it is common to have: A small amount of blood in your poop for 24 hours. Some gas. Mild cramping or bloating in your belly. Follow these instructions at home: General instructions For the first 24 hours after the procedure: ? Do not drive or use machinery. ? Do not sign important documents. ? Do not drink alcohol. ? Do your daily activities more slowly than normal. ? Eat foods that are soft and easy to digest. Take acsq-fzs-cwqhbgl or prescription medicines only as told by your doctor. To help cramping and bloating: Try walking around. Put heat on your belly (abdomen) as told by your doctor. Use a heat source that your doctor recommends, such as a moist heat pack or a heating pad. ? Put a towel between your skin and the heat source. ? Leave the heat on for 20 30 minutes. ? Remove the heat if your skin turns bright red. This is especially important if you cannot feel pain, heat, or cold. You can get burned. Eating and drinking Drink enough fluid to keep your pee (urine) clear or pale yellow. Return to your normal diet as told by your doctor. Avoid heavy or fried foods that are hard to digest. Avoid drinking alcohol for as long as told by your doctor. Contact a doctor if: You have blood in your poop (stool) 2 3 days after the procedure. Get help right away if: You have more than a small amount of blood in your poop. You see large clumps of tissue (blood clots) in your poop. Your belly is swollen. You feel sick to your stomach (nauseous). You throw up (vomit). You have a fever. You have belly pain that gets worse, and medicine does not help your pain. Summary After the procedure, it is common to have a small amount of blood in your poop. You may also have mild cramping and bloating in your belly. For the first 24 hours after the procedure, do not drive or use machinery, do not sign important documents, and do not drink alcohol. Get help right away if you have a lot of blood in your poop, feel sick to your stomach, have a fever, or have more belly pain. This information is not intended to replace advice given to you by your health care provider. Make sure you discuss any questions you have with your health care provider. Document Released: 11/16/2011 Document Revised: 08/14/2018 Document Reviewed: 07/08/2017 [employer] Patient Education 2020 [employer]. Colon Polyps Polyps are tissue growths inside the body. Polyps can grow in many places, including the large intestine (colon). A polyp may be a round bump or a mushroom-shaped growth. You could have one polyp or several. Most colon polyps are noncancerous (benign). However, some colon polyps can become cancerous over time. Finding and removing the polyps early can help prevent this. What are the causes? The exact cause of colon polyps is not known. What increases the risk? You are more likely to develop this condition if you: Have a family history of colon cancer or colon polyps. Are older than 50 or older than 45 if you are . Have inflammatory bowel disease, such as ulcerative colitis or Crohn's disease. Have certain hereditary conditions, such as: ? Familial adenomatous polyposis. ? Bonilla syndrome. ? Turcot syndrome. ? Peutz Jeghers syndrome. Are overweight. Smoke cigarettes. Do not get enough exercise. Drink too much alcohol. Eat a diet that is high in fat and red meat and low in fiber. Had childhood cancer that was treated with abdominal radiation. What are the signs or symptoms? Most polyps do not cause symptoms. If you have symptoms, they may include: Blood coming from your rectum when having a bowel movement. Blood in your stool. The stool may look dark red or black. Abdominal pain. A change in bowel habits, such as constipation or diarrhea. How is this diagnosed? This condition is diagnosed with a colonoscopy. This is a procedure in which a lighted, flexible scope is inserted into the anus and then passed into the colon to examine the area. Polyps are sometimes found when a colonoscopy is done as part of routine cancer screening tests. How is this treated? Treatment for this condition involves removing any polyps that are found. Most polyps can be removed during a colonoscopy. Those polyps will then be tested for cancer. Additional treatment may be needed depending on the results of testing. Follow these instructions at home: Lifestyle Maintain a healthy weight, or lose weight if recommended by your health care provider. Exercise every day or as told by your health care provider. Do not use any products that contain nicotine or tobacco, such as cigarettes and e-cigarettes. If you need help quitting, ask your health care provider. If you drink alcohol, limit how much you have: ? 0 1 drink a day for women. ? 0 2 drinks a day for men. Be aware of how much alcohol is in your drink. In the [place] one drink equals one 12 oz bottle of beer (355 mL), one 5 oz glass of wine (148 mL), or one 1 oz shot of hard liquor (44 mL). Eating and drinking Eat foods that are high in fiber, such as fruits, vegetables, and whole grains. Eat foods that are high in calcium and vitamin D, such as milk, cheese, yogurt, eggs, liver, fish, and broccoli. Limit foods that are high in fat, such as fried foods and desserts. Limit the amount of red meat and processed meat you eat, such as hot dogs, sausage, zarate, and lunch meats. General instructions Keep all follow-up visits as told by your health care provider. This is important. ? This includes having regularly scheduled colonoscopies. ? Talk to your health care provider about when you need a colonoscopy. Contact a health care provider if: You have new or worsening bleeding during a bowel movement. You have new or increased blood in your stool. You have a change in bowel habits. You lose weight for no known reason. Summary Polyps are tissue growths inside the body. Polyps can grow in many places, including the colon. Most colon polyps are noncancerous (benign), but some can become cancerous over time. This condition is diagnosed with a colonoscopy. Treatment for this condition involves removing any polyps that are found. Most polyps can be removed during a colonoscopy. This information is not intended to replace advice given to you by your health care provider. Make sure you discuss any questions you have with your health care provider. Document Released: 07/10/2005 Document Revised: 01/29/2019 Document Reviewed: 01/29/2019 Elsevier Patient Education 2020 [employer]. Additional Information VACCINATE! IT SAVES LIVES! Members of the community who have not yet received the COVID-19 vaccine and would like to receive it can visit one of [facility] vaccine clinics. There are many vaccine clinic locations within the [facility]. For locations and available times, please visit [email or web address] It is important to note that some COVID mobile vaccine clinics are held outdoors and may be canceled in rainy or stormy conditions. To learn more about pediatric vaccinations (ages 5-11), we invite you to visit the [facility] webpage. [email or web address] learn more about the COVID-19 vaccine, we invite you to visit the [employer] website for a list of frequently asked questions. [email or web address] [employer] Patient Portal Access Instructions: Stay connected with your healthcare team and access your personal medical information anytime with the [employer] Patient Portal.If you would like a full copy of your medical records, please contact the [facility] Medical Records Department, Saturday through Saturday between 8a.m. and 4:30p.m. Please follow the directions below to access the portal: 1.Access the email account you provided upon registration to the hospital.2.Look for an invitation email from [facility].3.Open the email and access the invitation link: Accept Invitation to [employer]4.Fill in the required jones to create your account. Sign into [email or web address] with your username and password that you created in the above steps to stay up to date. You can then view a summary of results, a summary of your visits, and the ability to download your summaries to your computer or send the information securely to a physician. Remember that your healthcare information is confidential, so carefully consider who you will allow to register on the [employer], Patient Portal for access to your information. You can also access the [employer], Patient Portal on the [employer] alexx. Simply click on Health Records under [employer] and then click on the [facility] logo. HOW TO SAFELY DISPOSE OF PRESCRIPTION MEDICATIONS Please use one of the following methods to safely dispose of your unused medications. 1.Use a drug disposal kit: the drug disposal pouch allows you to safely discard your old and unuseddrugs. Ask your nurse to give you one when you are discharged.2.Visit a local take-back location: Many local pharmacies and police departments have programs that collect old and unwanted prescriptiondrugs. Call your local pharmacy or go to http://Solidarium.Terviu/9L6Df3u to find one close to you.3.Make use of household items: Use cat litter or old coffee grounds to dispose medications if other options arenot available. Mix your drugs with these household products, seal them in an airtight container andthrow it into the garbage. Call [facility]: [phone] to be sure your drugs can be disposed of in this way. Some medicines may require a different approach.4.Never flush your medications down the toilet. IF YOU HAVE BEEN PRESCRIBED AN OPIOID FOR PAIN If you have been prescribed an opioid (such as hydrocodone, oxycodone or morphine), it is critical to understand the possible side effects and risks of opioid pain medications. Even when taken as directed, opioids can have several side effects including: Tolerance, meaning you might need to take more of a medication for the same pain relief. Nausea, vomiting and/or constipation. Sleepiness, dizziness, dry mouth, confusion, depression or itching. Physical dependence, meaning you have withdrawal symptoms when a medication is stopped, can develop within a few days. KNOW YOUR RESPONSIBILITIES It is important to know exactly how much and how often to take the opioid pain medications you are prescribed. Never take opioids in higher amounts or more often than prescribed. Do not combine opioids with alcohol or other drugs that cause drowsiness, such as benzodiazepines, also known as benzos, including diazepam and alprazolam, muscle relaxants or sleep aids. Never sell or share prescription opioids. This is illegal. Store opioids in a secure place and out of reach of others (including children, family, friends and visitors). The last page of this document has been signed and retained as a CHART COPY. Signatures Patient Education Materials Screening for Sleep Apnea Sleep Apnea Monitored Anesthesia Care, Care After Colonoscopy, Adult, Care After, Efjw-wd-Lpmp Colon Polyps Medication Leaflets My discharge plan and instructions have been reviewed and explained to me and I,JAMMIE NICHOLAS understand my current condition and have read and understand these discharge instructions. I have receiveda written copy of the plan/instructions. If I have questions, I am aware that I should contact my do ctor. Patient/Humidifier Operator Signature: Date/Time: Relationship to Patient: Witness Name/Signature: Date/Time: [facility]10-17-2022 Anesthesiology Consult note Patient: JAMMIE NICHOLAS Age: 76 years Sex: Male : 1945 Associated Diagnoses: None Author: KIERAN HAYES APRN-TACKING MACHINE OPERATOR Assessment Postanesthesia assessment Vitals: Vital signs from flowsheet : Vital Signs 08/13/2022 11:50 EDT Heart Rate Monitored 65 bpm bpm Respiratory Rate 17 br/min br/min Systolic Blood Pressure NBP 143 mmHg mmHg Diastolic Blood Pressure NBP 77 mmHg mmHg 08/13/2022 11:45 EDT Heart Rate Monitored 75 bpm bpm Respiratory Rate 14 br/min br/min Systolic Blood Pressure NBP 146 mmHg mmHg Diastolic Blood Pressure NBP 78 mmHg mmHg 08/13/2022 11:40 EDT Heart Rate Monitored 69 bpm bpm Respiratory Rate 17 br/min br/min Systolic Blood Pressure NBP 142 mmHg mmHg Diastolic Blood Pressure NBP 85 mmHg mmHg 08/13/2022 11:35 EDT Heart Rate Monitored 66 bpm bpm Respiratory Rate 18 br/min br/min Systolic Blood Pressure NBP 131 mmHg mmHg Diastolic Blood Pressure NBP 80 mmHg mmHg 08/13/2022 11:30 EDT Heart Rate Monitored 62 bpm bpm Respiratory Rate 15 br/min br/min Systolic Blood Pressure NBP 130 mmHg mmHg Diastolic Blood Pressure NBP 87 mmHg mmHg 08/13/2022 11:25 EDT Heart Rate Monitored 60 bpm bpm Respiratory Rate 22 br/min br/min Systolic Blood Pressure NBP 133 mmHg mmHg Diastolic Blood Pressure NBP 72 mmHg mmHg 08/13/2022 11:20 EDT Heart Rate Monitored 77 bpm bpm Systolic Blood Pressure NBP 128 mmHg mmHg Diastolic Blood Pressure NBP 80 mmHg mmHg 08/13/2022 11:16 EDT Heart Rate Monitored 72 bpm bpm 08/13/2022 11:15 EDT Systolic Blood Pressure NBP 140 mmHg mmHg Diastolic Blood Pressure NBP 70 mmHg mmHg 08/13/2022 10:27 EDT Temperature Temporal Artery 36.1 DegC Apical Heart Rate 62 bpm Respiratory Rate 15 br/min , Measurements from flowsheet . Mental status: alert & oriented x 4. Respiratory function: respirations are non-labored. Respiratory support: none. CV function: Normal rate. Cardiovascular support: none. Pain. Nausea status: see nursing documentation of medications. Postoperative hydration status: within normal limits. Digitally Signed by KIERAN HAYES on 08/13/2022 11:54 AM [facility]10-17-2022 Anesthesiology Consult note Patient: JAMMIE NICHOLAS Age: 76 years Sex: Male : 1945 Associated Diagnoses: None Author: KIERAN HAYES Preoperative Information Time of last solid food intake: 08/13/2022 00:00:00 Time of last clear liquid intake: 08/13/2022 05:30:00 Anesthesia history Patient's history: negative. Family's history: negative. Health Status Allergies: Allergic Reactions (Selected) NKA, Allergies (1) ActiveReaction NKANone Documented Current medications: (Selected) Inpatient Medications Ordered LR 1,000 mL: 50 mL/hr, Intravenous Prescriptions Prescribed Eliquis 5 mg oral tablet: 5 mg, 1 tab(s), Oral, BID, for 30 day(s), 60 tab(s), 5 Refill(s) MetFORMIN (Eqv-Glucophage XR) 500 mg oral tablet, EXTENDED RELEASE: 500 mg, 1 tab(s), Oral, BID, for 90 day(s), with evening meal. Okay to subtitute glucophage 500 mg extended release if covered by insurance, 180 tab(s), 1 Refill(s) Metoprolol Succinate ER 25 mg oral TABLET extended release: 12.5 mg, 0.5 tab(s), Oral, qDay, for 90day(s), 45 tab(s), 3 Refill(s) amLODIPine 5 mg oral tablet: 5 mg, 1 tab(s), Oral, qDay, for 90 day(s), 90 tab(s), 1 Refill(s) atorvastatin 40 mg oral tablet: 40 mg, 1 tab(s), Oral, qDay, 90 tab(s), 1 Refill(s) finasteride 5 mg oral tablet: 5 mg, 1 tab(s), Oral, qDay, for 90 day(s), 90 tab(s), 1 Refill(s) losartan 50 mg oral tablet: 50 mg, 1 tab(s), Oral, qDay, 90 tab(s), 1 Refill(s) nitroglycerin 0.4 mg sublingual tablet: 0.4 mg, 1 tab(s), Sublingual, q5min, DISSOLVE 1 TABLET UNDER THE TONGUE NEEDED FOR CHEST PAIN- MAY REPEAT EVERY 5 MINUTES IF NEEDED ( MAX 3 DOSES.- IF NO RELIEF CALL 911), 25 tab(s), 3 Refill(s) tamsulosin 0.4 mg oral capsule: 0.4 mg, 1 cap(s), Oral, qDay, for 90 day(s), 90 cap(s), 1 Refill(s), Medications (1) Active Scheduled: (0) Continuous: (1) Lactated Ringers 1,000 mL 1,000 mL, Intravenous, 50 mL/hr PRN: (0) Problem list: Medical AORTIC STENOSIS / SNOMED CT 810276419 / Confirmed Asymptomatic microscopic hematuria / SNOMED CT 2730725691 / Confirmed HTN (hypertension), benign / SNOMED CT 98679557 / Confirmed BENIGN PROSTATIC HYPERPLASIA WITH LOWER URINARY TRACT SYMPTOMS / SNOMED CT 3843707680 / Confirmed CHEST PAIN / SNOMED CT 23647732 / Confirmed Chronic rhinitis / SNOMED CT 792258430 / Confirmed Diverticulosis / SNOMED CT 1930277907 / Confirmed Diverticulosis of colon / SNOMED CT 6245324842 / Confirmed DYSLIPIDEMIA / SNOMED CT 7786453516 / Confirmed Easy bruising / SNOMED CT 2448161705 / Confirmed Atrial flutter: [id number] score 2 (age, HTN) / SNOMED CT 9525041750 / Confirmed Gastroesophageal reflux disease / SNOMED CT 321183555 / Confirmed RECEIVED INFLUENZA VACCINATION AT HOSPITAL / SNOMED CT 761661447 / Confirmed Hyperglycemia / SNOMED CT 423256077 / Confirmed Left inguinal hernia / SNOMED CT 725510393 / Confirmed Multiple pigmented nevi / SNOMED CT 7311691229 / Confirmed Microalbuminuria / SNOMED CT 902227087 / Confirmed PALPITATION / SNOMED CT 051738918 / Confirmed PNEUMOCOCCAL VACCINATION GIVEN / SNOMED CT 927900580 / Confirmed Proteinuria / SNOMED CT 13880056 / Confirmed Urinary retention / SNOMED CT 684684109 / Confirmed Hepatic steatosis / SNOMED CT 582320662 / Confirmed Diabetes mellitus type 2, noninsulin dependent / SNOMED CT 494136360 / Confirmed 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 / Confirmed, Active Problems (24) AORTIC STENOSIS Asymptomatic microscopic hematuria Atrial flutter: [id number] score 2 (age, HTN) BENIGN PROSTATIC HYPERPLASIA WITH LOWER URINARY TRACT SYMPTOMS CHEST PAIN Chronic rhinitis Diabetes mellitus type 2, noninsulin dependent Diverticulosis Diverticulosis of colon DYSLIPIDEMIA Easy bruising Frequent PVCs Gastroesophageal reflux disease Hepatic steatosis HTN (hypertension), benign Hyperglycemia Left inguinal hernia Microalbuminuria Multiple pigmented nevi PALPITATION PNEUMOCOCCAL VACCINATION GIVEN Proteinuria RECEIVED INFLUENZA VACCINATION AT HOSPITAL Urinary retention Histories Past Medical History: No active or resolved past medical history items have been selected or recorded. Family History: Hypertension Mother Brother Procedure history: Echocardiogram ([id number]) on 11/15/2021 at 75 Years. Comments: 04/16/2022 10:51 Lianne Caban MA (ABR-OE) EF 60-65% EKG finding ([id number]) on 05/27/2020 at 74 Years. Comments: 11/09/2020 10:05 Estella Mullins MA (ABR-OE) NSR 51bpm Cardioversion ([id number]) on 12/31/2019 at 74 Years. Comments: 02/24/2020 11:20 CHARLENE - SARIKA YESSY DO Direct-current cardioversion Echocardiogram ([id number]) on 10/23/2018 at 72 Years. Comments: 12/07/2019 15:37 Lianne Lopes MA (ABR-OE) 1. Left ventricle: The cavity size is normal. Wall thickness is normal. Systolic function is normal. The estimated ejection fraction is 60-65%. Wall motion is normal; there are no regional wall motion abnormalities. 2. Aortic valve: The valve is functionally bicuspid. The leaflets are moderately thickened and severely calcified. There is mild stenosis. There is mild regurgitation. 3. Left atrium: The atrium is mildly dilated. 4. Right ventricle: The RV systolic pressure by Doppler is 28 mm Hg. 5. Right atrium: The atrium is dilated. The estimated right atrial pressure is 3 mm Hg. Stress test treadmill ([id number]) on 10/23/2018 at 72 Years. Comments: 12/07/2019 15:38 Lianne Lopes MA (ABR-OE) 1. Positive exercise EKG stress test for ischemia. 2. Average functional capacity. 3. No exercise-induced chest pain. 4. Occasional PVCs at rest noted, which reduced in frequency with exercise. 5. Normal blood pressure and heart rate response to exercise noted. 1. No evidence of inducible ischemia or prior myocardial infarction 2. Normal wall motion and systolic function, LVEF 62% Colonoscopy ([id number]) on 02/11/2012 at 66 Years. Comments: 06/18/2019 7:37 Sheyla Marie LPN normal Holter monitor ([id number]). Comments: 12/07/2019 15:39 Lianne Lopes MA (ABR-OE) 24 HOUR -1. Sinus rhythm 65 to 135, average 88 beats per minute. 2. Frequent ventricular ectopic complexes representing 10% of all QRS complexes. Most in isolation with no ventricular tachycardia noted. 3. Rare supraventricular ectopic complexes, most in isolation with 2 couplets. 4. No long pauses or signs of high grade AV block Social History Social & Psychosocial Habits Alcohol 06/18/2019 Use: Current Frequency: 1-2 times per month Employment/School 09/29/2021 Status: Employed Substance Abuse 06/18/2019 Use: Never Tobacco 01/05/2022 Tobacco Use: Never (less than 100 in l Exposure to Tobacco Smoke Lives in non-smoking home Exercise 09/29/2021 Exercise type: Walking Times per week: Daily Home/Environment 06/18/2019 Other risks in environment: no smoke exposure Nutrition/Health 06/18/2019 Caffeine intake amount: 1 serving/day . Physical Examination Vital Signs 08/13/2022 10:27 EDT Temperature Temporal Artery 36.1 DegC Apical Heart Rate 62 bpm Respiratory Rate 15 br/min Vital Signs(last 24 hrs) Last Charted Resp Rate 15 br/min (AUG 13 10:27) Measurements from flowsheet : Measurements 08/13/2022 10:32 EDT Height 172.7 cm Admission Weight 89.8 kg [place] Body Weight 68.38 kg 08/13/2022 10:27 EDT Height 172.7 cm Admission Weight 89.8 kg [place] Body Weight 68.38 kg Admission Body Mass Index 30.11 m2 Pain assessment: Pain Assessment 08/13/2022 10:27 EDT Pain Scale Type 0-10 Pain scale . General: Alert and oriented. Airway: Normal temporomandibular joint mobility, Normal mouth, Normal neck range of motion. Mallampati classification: III (soft palate, base of uvula visible). Dentition Evaluation: Denies loose/chipped teeth. Respiratory: Respirations are non-labored. Neurologic: Alert, Oriented. Review / Management Results review: No qualifying data available , Lab results 08/13/2022 10:50 EDT Lactated Ringers Injection Begin Bag 1,000 mL mL 08/13/2022 10:32 EDT Designated Person #1 We May Share PHI [phone] [facility] Designated Person #1 Relationship Spouse Privacy Restrictions Requested None Height 172.7 cm Admission Weight 89.8 kg [place] Body Weight 68.38 kg Status N/A Sensory Deficits None Sleep Apnea Snore Yes Sleep Apnea Tired No Sleep Apnea Obstruction Yes Sleep Apnea Pressure Yes Sleep Apnea BMI No Sleep Apnea Age Yes Sleep Apnea Neck No Sleep Apnea Gender Yes Sleep Apnea Score 5 HI High Risk for Sleep Apnea Yes Diagnosed With Sleep Apnea No Advanced Directives Unable to obtain Infectious Disease Symptoms Patient states no symptoms Infectious Disease Recent Exposure No Alcohol and Drug Use No Employee of Institutional Living No Health Care Employee No History of Exposure to TB No History of Positive Chest X-Ray for TB No History of Positive TB Skin Test No Homeless No Known Immunosuppression No Recent Immigrant No Resident of Institutional Living No Bloody Sputum No Fatigue No Fever No Loss of Appetite No Night Sweats No Persistent Cough > 3 Weeks No Weight Loss No Safety Brochure Information Reviewed Unable to complete [employer] Video Viewed No Individuals Taught Patient, Spouse Learning Readiness Willing to learn Barriers to Learning None evident Teaching Method Explanation Preferred Written Language Citizen Of [place] Preferred Spoken Language Citizen Of [place] Pre Procedure/Surgery Education Appropriate expectations Information Given by Patient Patient's Current Physicians Patient's Current Physicians Discharge To, Anticipated Home with family care Prev Test Positive/Diagnosis w/COVID-19 No Current Quarantine/Isolated any Illness No Any Contact with Sick Animals/Birds No Traveled Anywhere in Last 30 Days No Lost Weight Unintentionally Recently No Eat Poorly Due to Decreased Appetite No Total MST Score 0 N/A Personal Devices, Patient Valuables Glasses Anesthesia/Transfusions Prior anesthesia Admission Note-Nursing Same Day Patient History 08/13/2022 10:27 EDT Blood Glucose, Capillary 133 mg/dL HI Height 172.7 cm Admission Weight 89.8 kg [place] Body Weight 68.38 kg Admission Body Mass Index 30.11 m2 Temperature Temporal Artery 36.1 DegC Apical Heart Rate 62 bpm Respiratory Rate 15 br/min Pain Scale Type 0-10 Pain scale Heart Sounds ICU S1S2 Heart Rhythm Irregular All Lobes Breath Sounds Clear Oxygen Therapy Room air Oxygen Saturation 97 % Abdomen Description Non-distended, Soft Bowel Sounds All Quadrants Hypoactive Urinary Elimination Voiding, no difficulties Skin Temperature Warm Skin Description [place], Normal for ethnicity, Dry Skin Moisture General Dry IV Present Present Hand Right 08/13/2022 22 gauge Peripheral IV Activity: Insert new site Peripheral IV Site Condition: No complications Peripheral IV Number of Attempts: 1 Characteristics of Speech Clear Level of Consciousness Alert Affect/Behavior Appropriate, Calm, Cooperative Orientation Oriented x 4 Allergies Yes Mine Motor Engineer On Yes Consent Form Signed Yes Patient Dressed In Hospital gown Pre-op Preparation Glasses removed History & Physical Update On Chart Yes History & Physical On Chart Yes Obstructive Sleep Apnea Assess Completed Yes Orientation Assessment Oriented x 4 Activity Status ADL Ambulating in lópez, Ambulating in room, Awake Assistive Device None NPO Status Maintained Standard Safety ID band on, Call device within reach, Bed in low position, Wheels locked, Visitor at bedside Patient ID Band on and Verified Yes Implants Verified Yes Pacemaker/AICD Verified Yes Last Fluid Intake 08/13/2022 5:30 Last Food Intake 08/12/2022 15:00 Last Void 08/13/2022 10:46 . Assessment and Plan [place] [employer] (ASA) physical status classification: Class III. Anesthetic Preoperative Plan Anesthetic technique: MAC. Informed consent: signed by patient. Digitally Signed by KIERAN HAYES on 08/13/2022 11:11 AM [facility] Appointment Date:01/05/2022 03:00:00 PM Scheduled Provider:YESSY SANTILLAN DO Location:[facility] Appointment Type:PC OV [facility] + Plan note Future Appointments Appointment Date:07/06/2022 03:00:00 PM Scheduled Provider:YESSY SANTILLAN DO Location:[facility] Appointment Type:PC Wellness Medicare [facility] + Plan note Future Appointments Appointment Date:01/04/2023 03:00:00 PM Scheduled Provider:YESSY SANTILLAN DO Location:[facility] Appointment Type:PC OV [facility] + Plan note Future Appointments Appointment Date:08/20/2022 02:45:00 PM Scheduled Provider:AMARILYS VERDUZCO MD Location:[facility] Appointment Type:GS OV Follow Up Appointment Date:09/10/2022 11:30:00 AM Scheduled Provider: Location:[facility] Appointment Type:CV OV Appointment Date:01/04/2023 03:00:00 PM Scheduled Provider:YESSY SANTILLAN DO Location:[facility] Appointment Type: OV [facility] + Plan note Future Appointments Appointment Date:10/11/2022 11:30:00 AM Scheduled Provider: Location:[facility] Appointment Type:CV OV Appointment Date:01/04/2023 03:00:00 PM Scheduled Provider:YESSY SANTILLAN DO Location:[facility] Appointment Type:PC OV [facility] + Plan note Future Appointments Appointment Date:07/12/2023 03:00:00 PM Scheduled Provider:YESSY SANTILLAN DO Location:[facility] Appointment Type:PC Wellness Medicare [facility] Evaluation + Plan note Future Appointments Appointment Date:05/21/2023 04:30:00 PM Scheduled Provider:YESSY SANTILLAN DO Location:[facility] Appointment Type:PC OV Appointment Date:07/12/2023 03:00:00 PM Scheduled Provider:YESSY SANTILLAN DO Location:[facility] Appointment Type:PC Wellness Medicare [facility] Evaluation + Plan note Future Appointments Appointment Date:05/28/2023 04:30:00 PM Scheduled Provider:YESSY SANTILLAN DO Location:[facility] Appointment Type:PC OV Appointment Date:07/12/2023 03:00:00 PM Scheduled Provider:YESSY SANTILLAN DO Location:[facility] Appointment Type:PC Wellness Medicare [facility] Evaluation + Plan note Future Appointments Appointment Date:09/24/2023 04:00:00 PM Scheduled Provider:YESSY SANTILLAN DO Location:[facility] Appointment Type:PC OV Appointment Date:01/10/2024 04:30:00 PM Scheduled Provider:YESSY SANTILLAN DO Location:[facility] Appointment Type:PC OV Future Scheduled Tests Laboratory* Iron Level 08/21/23 * Complete Blood Count 08/21/23 * Complete Metabolic Panel 08/21/23 * N-Terminal proBNP 08/21/23 [facility] + Plan note Future Appointments Appointment Date:01/14/2024 04:30:00 PM Scheduled Provider:YESSY SANTILLAN DO Location:[facility] Appointment Type:PC OV Future Scheduled Tests Laboratory* Iron Level 11/06/23 * Complete Blood Count 11/06/23 * Complete Metabolic Panel 11/06/23 [facility] Evaluation + Plan note Future Appointments Appointment Date:04/14/2024 04:30:00 PM Scheduled Provider:YESSY SANTILLAN DO Location:[facility] Appointment Type:PC OV Future Scheduled Tests Laboratory* Potassium Level 01/18/24 * Iron Level 11/06/23 * Complete Blood Count 11/06/23 * Complete Metabolic Panel 11/06/23 [facility] Evaluation + Plan note Future Appointments Appointment Date:04/14/2024 04:30:00 PM Scheduled Provider:YESSY SANTILLAN DO Location:[facility] Appointment Type:PC OV [facility] Evaluation + Plan note Future Appointments Appointment Date:07/30/2024 04:00:00 PM Scheduled Provider:YESSY SANTILLAN DO Location:[facility] Appointment Type:PC Wellness Medicare [facility] [place] Evaluation + Plan note Future Appointments Appointment Date:12/09/2024 04:00:00 PM Scheduled Provider:YESSY SANTILLAN DO Location:[facility] Appointment Type:PC OV [facility] Evaluation + Plan note Future Appointments Appointment Date:03/26/2025 04:00:00 PM Scheduled Provider:YESSY SANTILLAN DO Location:[facility] Appointment Type:PC OV [facility] Evaluation noteNo assessment information available [facility] Work Phone: Hospital course Narrative No data available for this section [facility] Discharge instructions No data available for this section [facility] Note* NICO SMALL MD: SIGN, VERIFY Event Display: Echocardiogram Complete w/Strain ([facility]) Authored Date: [facility] Progress note No data available for this section [facility] Summary Purpose Family History No Family History Records Found Advance Directives No Advanced Directives Records FoundNo Advanced Directives Records FoundNo Advanced Directives Records Found Additional Source Comments Care Team (unrecognized sect ion and content) Care Team Personnel Name: YESSY SANTILLAN DO Position: P4 Physician - Primary Care Med Service: Active Provider Member Role: Primary Care Physician Address: Address: [address] [place] [address] Care Team Related Persons Name: RACHEAL NICHOLAS Address: [address] [phone] [place] Care Team Personnel Name: YESSY SANTILLAN DO Position: P4 Physician - Primary Care Med Service: Active Provider Member Role: Primary Care Physician Address: Address: [address] [place] [address] Care Team Related Persons Name: RACHEAL NICHOLAS Address: [address] [phone] [place] Care Team Personnel Name: YESSY SANTILLAN DO Position: P4 Physician - Primary Care Member Role: Primary Care Physician Address: Address: [address] [place] [address] Care Team Related Persons Name: RACHEAL NICHOLAS Address: [address] [phone] [place] Care Team Personnel Name: YESSY SANTILLAN DO Position: P4 Physician - Primary Care Member Role: Primary Care Physician Address: Address: [address] [place] [address] Care Team Related Persons Name: RACHEAL NICHOLAS Address: [address] [phone] [place] Patient Care team informatio n (unrecognized section and content) Team Status: Active Member Role Status Dates Dr. Inocente Doyle DO Family Provider Active Dr. Yessy Santillan DO Primary Care Provider Active Team Status: Inactive Member Role Status Dates Dr. Yessy Santillan DO Primary Care Provider Active Shira Dockery , [employer] Attending Provider, Kevin martel Provider Active Goals (unrecognized section and content) Goals may be documented in a n alternate section (unrecognized sect ion and content) No Status Records FoundNo Status Records FoundNo Status Records Found INFORMATION SOURCE (unrecogn ized section and content) DATE CREATED AUTHOR 04/26/2024 [facility] DATE CREATED AUTHOR AUTHOR'S ORGANIZ ATION 01/12/2025 [facility] DATE CREATED AUTHOR AUTHOR'S ORGANIZ ATION 06/30/2025 [facility] FOR RECORDS PERTAINING TO PATIENTS WHO ARE OR HAVE BEEN ENROLLED IN A CHEMICAL DEPENDENCY/SUBSTANCEABUSE PROGRAM, SOME INFORMATION MAY BE OMITTED. This clinical summary was aggregated from multiple sources. Caution should be exercised in using it in the provision of clinical care. This summary normalizes information from multiple sources, and as a consequence, information in this document may materially change the coding, format and clinical context of patient data. In addition, data may be omitted in some cases. CLINICAL DECISIONS SHOULD BE BASED ON THE PRIMARY CLINICAL RECORDS. [facility] [employer] [facility]. provides no warranty or guarantee of the accuracy or completeness of information in this document.
[2025-07-05 09:23] LABS: PSA,Total - Annual Screen 0.53 ng/mL (0.02-4.00)
== END | disposition home or self-care (01) ==
LOC: LAB 06:41
PROVIDERS: PCP Student in an Organized Health Care Education/Training Program; Referring Provider Nurse Practitioner; Visit Provider Nurse Practitioner
DX: Z12.5 Encounter for screening for malignant neoplasm of prostate (principal)
CPT/HCPCS: 36415; 84153; G0103